=== PATIENT | female | born 2000 | race Caucasian/White ===

== ENCOUNTER 2022-01-03 23:09 | Emergency (ER) | payer OTHER, SELFPAY ==
[2022-01-03 23:15] VITALS: BP 135/70; PULSE 78; RESP 16; TEMP 36.4; O2SAT 99; BMI 21.5
--- NOTE | 2022-01-03 23:29 | CRLHL7_ITS ---
For Patients: As a result of the Cures Act, medical imaging exams and procedure reports are released immediately into your electronic medical record. You may view this report before your referring provider. If you have questions, please contact your health care provider. Indication: Pain. Technique: Left knee 3 views. Comparison: None. Findings: Suboptimal positioning on lateral view. No acute fracture or dislocation. Mild lateral tilt of the patella. Joint spaces are preserved. No knee joint effusion. Soft tissues are unremarkable. Impression: 1. No acute findings. 2. Mild lateral tilt of the patella. Dictated by Ya Mahmood MD @ 01/04/2022 12:06:17 AM (Electronically Signed)
--- NOTE | 2022-01-03 23:52 | ED_ITS ---
HPI - Extremity Injury (Lower) General Date Seen: 01/03/22 Chief Complaint: Extremity Pain/Injury, Lower Stated Complaint: left knee pain Time Seen by Provider: 01/03/22 23:10 Source: patient Mode of arrival: ambulatory Limitations: no limitations History of Present Illness HPI Narrative: Patient is a 21-year-old female who presents here with a month history of left knee pain. Describes the pain worse when she is up moving around but there is always some chronic nature to the pain. When she walks she describes her pain as 8 or 9/10, when she is sitting shots approximately a 2 or 3. She has noted no swelling or effusion associated with this, there is no redness, she can not remember specific episode where she injured her knee. Seemingly the pain is worse when she goes up and down stairs. She tried ibuprofen and Tylenol for this but did not really get any response at all and quit taking this. He has not seen her primary care physician, not seen any specialty for this. No p revious history of any surgeries or previous knee issues. Onset (ago): month(s) Injury: Left: knee Related Data Home Medications Medication Instructions Recorded Confirmed No Known Home Medications 01/03/22 01/03/22 Allergies Allergy/AdvReac Type Severity Reaction Status Date / Time No Known Drug Allergies Allergy Verified 01/03/22 23:19 Review of Systems Status of ROS: Reports: 6 or more systems reviewed and unremarkable except as noted in History and below [facility] Medical History Anemia, iron deficiency Dermatitis, atopic Micrognathia Psoriasis Scoliosis Surgical History No significant past surgical history Social History Smoking Status: Never smoker Do you use any of these nicotine containing products: None How often do you have a drink containing alcohol: never How often do you have six or more drinks on one occasion: Never AUDIT-C Alcohol total score: 0 Non-prescribed substance use: denies use Exam Narrative: Exam Narrative: Patient is seen and assessed her knees are symmetrical bilaterally, with no evidence of a fusion, she is able to walk with me normal in the room, with a non antalgic gait pattern. Left knee shows no effusion and she has normal flexion to 120, normal extension to 0, she has strong ACL PCL LCL and MCL, Malena's test is negative, popliteal fossa is normal, she is mildly tender on distal under side of her patella, normal quads bilaterally, no evidence of any muscle atrophy, normal pulses in her lower extremities bilaterally, Const: Vital Signs, click to edit/add: Vital Signs - 24 hr 01/03/22 23:15 Temperature 97.6 F Pulse Rate [Right Pulse Oximeter] 78 Respiratory Rate 16 Blood Pressure [Ri ght Upper Arm] 135/70 Pulse Oximetry 99 Oxygen Delivery Me thod Room Air Documenting provider has reviewed patient's vital signs: yes Course Vital Signs Vital signs: Initial Vital Signs Temperature 97.6 F 01/03/22 23:15 Temperature Source Temporal Artery Scan 01/03/22 23:15 Pulse Rate 78 01/03/22 23:15 Respiratory Rate 16 01/03/22 23:15 Blood Pressure 135/70 01/03/22 23:15 Blood Pressure Mean 91 01/03/22 23:15 Blood Pressure Position Sitting 01/03/22 23:15 Pulse Oximetry 99 01/03/22 23:15 Oxygen Delivery Method 01/03/22 23:15 Vital Signs Temperature 97.6 F 01/03/22 23:15 Pulse Rate 78 01/03/22 23:15 Respiratory Rate 16 01/03/22 23:15 Blood Pressure 135/70 01/03/22 23:15 Pulse Oximetry 99 01/03/22 23:15 Oxygen Delivery Method 01/03/22 23:15 Temperature 97.6 F 01/03/22 23:15 Pulse Rate 78 01/03/22 23:15 Respiratory Rate 16 01/03/22 23:15 Blood Pressure 135/70 01/03/22 23:15 Pulse Oximetry 99 01/03/22 23:15 Oxygen Delivery Method 01/03/22 23:15 MDM - Extremity Injury (Lower) MDM Narrative Medical decision making narrative: Patient is seen and assessed, consideration for fracture, sprain, contusion, cartilage derangement, Blank cyst, infection, patellofemoral syndrome, or other possibilities. We will do an x-ray, I suspect that this is patellofemoral syndrome and she will need to see primary care and consideration of physical therapy. She tells me she did wear knee brace, this is usually not helpful for this. Imaging Data Knee x-ray: Attestation: I have reviewed the pertinent imaging results. My impression: Knee x-ray negative fracture dislocation Radiologist's impression: Patient: DIAN LEONG Facility:?[facility] Patient ID:?[id number] Site Patient ID:?[id number]. Site :?[id number] Study:?XRay Knee Left 3V-01/03/2022 11:55:30 PM Ordering Physician:Krista Kamara Final Report: Indication: Pain. Technique: Left knee 3 views. Comparison: None. Findings: Suboptimal positioning on lateral view. No acute fracture or dislocation. Mild lateral tilt of the patella. Joint spaces are preserved. No knee joint effusion. Soft tissues are unremarkable. Impression: 1. No acute findings. 2. Mild lateral tilt of the patella. Dictated by Ya Mahmood MD @ 01/04/2022 12:06:17 AM (Electronic Signature) Discharge Plan Discharge Clinical Impression: Acute knee pain Patient Disposition: Home, Self-Care Condition: Stable Instructions: Heat Pack Application (ED), Patellofemoral Pain Syndrome Exercises (ED) Additional Instructions: I suspect this is patellofemoral syndrome, please read the handout that we gave you, you can use some Tylenol 1 g p.o. t.i.d. or ibuprofen 600 mg p.o. t.i.d. ice is helpful, follow-up with primary care for physical therapy referral. X- rays were negative. Prescriptions: No Action No Known Home Medications Follow Up/Referrals: Keith Hein MD [Staff Physician] - Provider,Not a Local [Primary Care Provider] - Stand Alone Forms: [employer] Info Instructions
[2022-01-04 00:48] VITALS: BP 125/68; PULSE 74; RESP 16; TEMP 36.4; O2SAT 99
== END 2022-01-04 00:49 | disposition home or self-care (01) ==
PROVIDERS: Emergency Provider Family Medicine
DX: M25.562 Pain in left knee (principal)
CPT/HCPCS: 73562; 99283

== ENCOUNTER 2022-02-06 09:19 | Outpatient (CLI) | payer OTHER, SELFPAY ==
--- NOTE | 2022-02-06 09:15 | CRLHL7_ITS ---
For Patients: As a result of the Century Cures Act, medical imaging exams and procedure reports are released immediately into your electronic medical record. You may view this report before your referring provider. If you have questions, please contact your health care provider. Indication: Follow up left axillary lymphadenopathy. Technique: Left axillary ultrasound Comparison: Ultrasound 09/13/2021 PET-CT 09/14/2021 Findings: Static images demonstrate multiple enlarged lymph nodes. Larger lymph nodes measure 2.7 by 1.2 centimeter short axis. There is presence of a fatty hilum. Cortex appears slightly thickened. Dictated by Yoselin Lo MD @ 02/06/2022 10:56:52 AM (Electronically Signed)
== END 2022-02-06 09:20 | disposition home or self-care (01) ==
PROVIDERS: Visit Provider Surgery
DX: R59.1 Generalized enlarged lymph nodes (principal)
CPT/HCPCS: 76882

== ENCOUNTER 2022-03-01 07:38 | Day surgery (SDC) | payer OTHER, SELFPAY ==
[2022-03-01] MEDS: LACTATED RINGERS 1000 ML 1,000 ML 100 ML IV (08:00)
[2022-03-01 08:08] VITALS: BP 132/87; PULSE 74; RESP 16; TEMP 37.1; O2SAT 99; BMI 24.5
[2022-03-01] MEDS: ETHYL CHLORIDE 1 APPLICATION 1 APPLIC TOPICAL (08:22)
[2022-03-01] MEDS: SODIUM CHLORIDE 0.9 % (FLUSH) 10 ML SYRINGE IVF (08:22)
--- NOTE | 2022-03-01 08:57 | SUR.PREOP ---
PT PROVIDED HOME ANTEGEN COVID NEGATIVE
--- NOTE | 2022-03-01 09:15 | CRLHL7_ITS ---
For Patients: As a result of the Cures Act, medical imaging exams and procedure reports are released immediately into your electronic medical record. You may view this report before your referring provider. If you have questions, please contact your health care provider. LEFT AXILLARY LYMPH NODE LOCALIZATION USING ULTRASOUND GUIDANCE CLINICAL HISTORY: Left axillary adenopathy with associated increased metabolic uptake on CT-PET imaging. LATERALITY: Left axilla LESION: Enlarged hypoechoic left axillary lymph node measuring 2.9 x 1.2 x 2.2 cm. LOCALIZATION WIRE: [place] hookwire. TECHNIQUE: The localization wire was placed using real-time ultrasound guidance with image documentation. CONSENT and TIME OUT: The procedure, risks, and alternatives were explained to the patient and a consent was signed. [place] Protocol was followed including pre-procedure verification that relevant information/documentation was available, reviewed and properly matched to the patient; consent accurate and complete; and equipment and supplies available. Time Out was conducted just prior to starting procedure to verify the four required elements: patient identity, correct side/site marked (if applicable), procedure, relevant images/results properly labeled and displayed (if applicable). PROCEDURE: The skin was prepped with Betadine and 3 cc of 1% lidocaine was injected for local anesthesia. The localization wire was placed within the enlarged left axillary lymph node using ultrasound guidance. The patient tolerated the procedure well. PROXIMITY OF WIRE TO LESION: The wire is located within the lesion. IMPRESSION: Successful left axillary lymph node wire localization. ACR not applicable Dictated by Keith Cabello MD @ 03/01/2022 10:17:53 AM (Electronically Signed)
[2022-03-01] MEDS: lidocaine HCL 2 % MULTIDOSE 20 ML VIAL INJECTION (10:26)
[2022-03-01] MEDS: BUPIVACAINE 0.5 % 10 ML VIAL INJECTION (10:26)
--- NOTE | 2022-03-01 10:38 | W.ANESCHARGE ---
Anesthesia Charges Start Date/Time Anesthesia Start Date: 03/01/22 Anesthesia Start Time: 10:06 Stop Date/Time Anesthesia Stop Date: 03/01/22 Anesthesia Stop Time: 11:30 Summary Emergency: No
--- NOTE | 2022-03-01 11:28 | PM.GSPRC ---
Operative Note Date of procedure: 03/01/22 Type of Procedure: Excision of left axillary lymph node Procedure Description: After discussing the risks and benefits of the procedure, the patient signed informed consent.? The operative site was marked and the patient was brought to the operating room and placed on the operating table in supine position.? Care was taken to pad the patient's pressure points.?? The patient was then given sedation by anesthesia.?? The operative site was then prepped and draped in the usual sterile fashion.? A time-out was then performed. Local anesthetic was infiltrated into the skin and an incision made over the wire. This was carried down to the subcutaneous tissue using electrocautery. Usually a combination of blunt dissection and electrocautery the wire was followed to a large, abnormal node. This was circumferentially dissected out. The pedicle was identified and ligated with a 3-0 Vicryl tie. The lymph node was then passed off with the wire on the back table to be sent to pathology. Hemostasis was assured with electrocautery. The incision was closed in layers with deeper interrupted 3 0 Vicryl and running 4-0 subcuticular stitch. ? Sterile dressings were then applied. ? The patient was then woken and transported to the recovery area in stable condition. ? The patient tolerated the procedure well. Findings: Large left axillary lymph node, wire localized Anesthesia: MAC Surgeon: Josie Farrell MD Estimated blood loss (mL): 5 Condition: stable Disposition: same day
[2022-03-01 11:30] VITALS: BP 88/44; PULSE 60; RESP 16; TEMP 36.5; O2SAT 96
[2022-03-01 11:45] VITALS: BP 90/54; PULSE 66; RESP 16; O2SAT 97
--- NOTE | 2022-03-01 11:56 | W.ANESCHARGE ---
Anesthesia Charges Start Date/Time Anesthesia Start Date: 03/01/22 Anesthesia Start Time: 10:06 Stop Date/Time Anesthesia Stop Date: 03/01/22 Anesthesia Stop Time: 11:30 Summary Emergency: No
[2022-03-01 12:00] VITALS: BP 101/66; PULSE 67; RESP 16; O2SAT 97
== END 2022-03-01 13:00 | disposition home or self-care (01) ==
PROVIDERS: PCP Physician Assistant Medical; Visit Provider Surgery
PROC: (CPT 38500; principal; 2022-03-01 10:05)
DX: R59.0 Localized enlarged lymph nodes (principal)
CPT/HCPCS: 38500; 00400; 10035; 88184; 88185; 88305; 88307; 88341; 88342; C1769; J2250; J2704; J3010; J7120; S0020

== ENCOUNTER 2022-03-30 23:05 | Emergency (ER) | payer OTHER, SELFPAY ==
[2022-03-30 23:11] VITALS: BP 120/79; PULSE 86; RESP 18; TEMP 37.4; O2SAT 100; BMI 37.6
--- NOTE | 2022-03-30 23:32 | CRLHL7_ITS ---
For Patients: As a result of the Century Cures Act, medical imaging exams and procedure reports are released immediately into your electronic medical record. You may view this report before your referring provider. If you have questions, please contact your health care provider. HISTORY: Cough for 1 week. COMPARISON: 07/28/2021 FINDINGS: A portable erect AP view of the chest was obtained at 23 40 hours. The lungs remain clear. No focal or diffuse infiltrates are present. The heart remains normal in size. The mediastinum is normal in appearance. The osseous structures are normal in appearance for the patient`s age. IMPRESSION: Normal portable chest single view. Dictated by Rusty Zurita MD @ 03/30/2022 11:54:00 PM (Electronically Signed)
[2022-03-30] MEDS: ONDANSETRON ODT 4 MG TAB PO (23:38)
[2022-03-31 00:08] LABS: PCR FLU A Negative PCR FLU A (Negative); PCR FLU B Negative PCR FLU B (Negative); PCR RSV Negative PCR RSV (Negative)
[2022-03-31 00:09] LABS: SARS PCR* Negative SARS-CoV-2 (Negative)
--- NOTE | 2022-03-31 00:12 | ED.GENADULT ---
HPI - General Adult General Chief complaint: Cough Stated complaint: difficulty breathing/fever/cough Time Seen by Provider: 03/30/22 23:24 History of Present Illness HPI narrative: 22-year-old young woman presenting to the emergency department with concern of cough and fever. Unspecified elevation of temperature. All this has been going on for about a week. She has had intermittent pain in her right mid chest as well with inspiration but more across the low chest indicating her anterior rib margin. Has been nauseated. Has had vomiting which sounds possibly cough related. Home tests negative for COVID. Negative testing as well. History of irregular menses. History of eczema and for a flare once did receive prednisone-does not tolerate well. Is indeed a little nauseated now. No history of pulmonary emboli or DVT. No unusual swelling of her legs. No prolonged immobility. Worried about RSV as there has been exposure. Work asked her to come in and get checked out. Related Data Home Medications Medication Instructions Recorded Confirmed fexofenadine 180 mg tablet 180 mg PO Q24H 01/31/22 03/30/22 ([facility]) ibuprofen 200 mg tablet 200 mg PO Q6H PRN 01/31/22 03/30/22 clobetasol 0.05 % topical ointment 1 applic topical BID PRN 02/26/22 03/30/22 ergocalciferol (vitamin D2) 10 mcg 400 unit PO DAILY 02/26/22 03/30/22 (400 unit) tablet mometasone 0.1 % topical ointment 0.1 topical .Daily as needed PRN 02/26/22 02/26/22 mupirocin calcium 2 % topical cream 1 applic topical TID 02/26/22 03/30/22 Previous Rx's Medication Instructions Recorded albuterol sulfate 90 mcg/actuation 2 puff inhalation Q6H PRN 02/26/22 aerosol inhaler shortness of breath or wheezing #8.5 grams oxycodone 5 mg tablet 5 mg PO Q6H PRN pain #7 tabs 03/01/22 gabapentin 100 mg capsule 100 mg PO TID #30 caps 03/14/22 Allergies Allergy/AdvReac Type Severity Reaction Status Date / Time potato Allergy Mild Rash Verified 03/30/22 23:17 adhesive Allergy Unknown Rash Verified 03/30/22 23:17 cyclobenzaprine Allergy Unknown stomach Verified 03/30/22 23:17 pain Review of Systems Status of ROS: Reports: 10 or more systems reviewed and unremarkable except as noted in History and below [facility] Medical History Anemia, iron deficiency Dermatitis, atopic Micrognathia Psoriasis Scoliosis Surgical History H/O lymph node biopsy History of oral surgery No significant past surgical history Social History Smoking Status: Former smoker What tobacco products do you use: cigarettes Smoking quit date/years: <= 15 years ago Do you use any of these nicotine containing products: Vaping Products Second hand tobacco smoke exposure: No How often do you have a drink containing alcohol: 2-4 times a month How often do you have six or more drinks on one occasion: Never AUDIT-C Alcohol total score: 2 Non-prescribed substance use: denies use Caffeine: Yes (DAILY) Are you using contraception or practicing any form of control: No Exam Narrative: Exam Narrative: Pleasant. Easily conversant. Breathing easily. Mild nasopharyngeal congestion. Oropharynx is moist and not particularly erythematous. Neck is supple without lymphadenopathy. Lungs are clear. No facial swelling erythema. Little sore to palpation along anterior rib margin. No abdominal tenderness otherwise. Cardiovascular with regular rate and rhythm. Skin is warm and dry with eczematous and psoriatic scarring over the proximal forearm/distal upper arms. No cellulitic change parent. Const: Vital Signs, click to edit/add: Vital Signs - 24 hr 03/30/22 23:11 Temperature 99.3 F Pulse Rate [Left P ulse Oximeter] 86 Respiratory Rate 18 Blood Pressure [Ri ght Upper Arm] 120/79 Pulse Oximetry 100 Oxygen Delivery Me thod Room Air Documenting provider has reviewed patient's vital signs: yes Course Vital Signs Vital signs: Initial Vital Signs Temperature 99.3 F 03/30/22 23:11 Temperature Source Temporal Artery Scan 03/30/22 23:11 Pulse Rate 86 03/30/22 23:11 Pulse Rhythm 03/30/22 23:11 Respiratory Rate 18 03/30/22 23:11 Blood Pressure 120/79 03/30/22 23:11 Blood Pressure Mean 92 03/30/22 23:11 Blood Pressure Position Supine 11/25/22 23:11 Pulse Oximetry 100 03/30/22 23:11 Oxygen Delivery Method 03/30/22 23:11 Vital Signs Temperature 99.3 F 03/30/22 23:11 Pulse Rate 86 03/30/22 23:11 Respiratory Rate 18 03/30/22 23:11 Blood Pressure 120/79 03/30/22 23:11 Pulse Oximetry 100 03/30/22 23:11 Oxygen Delivery Method 03/30/22 23:11 Temperature 99.3 F 03/30/22 23:11 Pulse Rate 86 03/30/22 23:11 Respiratory Rate 18 03/30/22 23:11 Blood Pressure 120/79 03/30/22 23:11 Pulse Oximetry 100 03/30/22 23:11 Oxygen Delivery Method 03/30/22 23:11 Medical Decision Making MDM Narrative Medical decision making narrative: Considering duration of illness I do not think it is unreasonable to do chest x-ray. Triple screened as well. This was negative. Review chest x-ray by me did not reveal any infiltrative process. Was also given Zofran. Overall seemed better in the emergency department. Oximetry maintained. Somewhat of a bronchitis picture with pleuritic component. Might benefit from prednisone but would not tolerate apparently. Recommendations then for NSAIDs. Medical Records Medical records reviewed: Yes I reviewed the patient's medical records Lab Data Lab results reviewed: Yes I reviewed the patient's lab results Labs: Lab Results 03/30/22 Range/Units 23:23 SARS-CoV-2 (PCR) Negative SARS-CoV-2 (Negative) Influenza Type A (PCR) Negative PCR FLU A (Negative) Influenza Type B (PCR) Negative PCR FLU B (Negative) RSV (PCR) Negative PCR RSV (Negative) Discharge Plan Discharge Clinical Impression: Chest pain, pleuritic, URI (upper respiratory infection) Patient Disposition: Home, Self-Care Condition: Stable Instructions: Upper Respiratory Infection (DC) Additional Instructions: I would focus on hydration. Maybe sleep due the mist of a cool mist humidifier. Menthol vapors. Consider taking, with a little food, ibuprofen 400-600 mg 3 times daily over the next 4-5 days or alternatively 250-500 mg of naproxen 2 times daily over the same time period. Zofran from [facility] Prescriptions: No Action ergocalciferol (vitamin D2) 10 mcg (400 unit) tablet 400 unit PO DAILY clobetasol 0.05 % ointment 1 applic topical BID PRN Rx Instructions: APPLY SPARINGLY TO AFFECTED AREA mupirocin calcium 2 % cream 1 applic topical TID mometasone 0.1 % ointment 0.1 topical .Daily as needed PRN albuterol sulfate 90 mcg/actuation HFA aerosol inhaler 2 puff inhalation Q6H PRN (Reason: shortness of breath or wheezing) Qty: 8.5 3RF gabapentin 100 mg capsule 100 mg PO TID Qty: 30 0RF Hold Instructions: Order Change fexofenadine [[facility]ine Allergy] 180 mg tablet 180 mg PO Q24H ibuprofen 200 mg tablet 200 mg PO Q6H PRN oxycodone 5 mg tablet 5 mg PO Q6H PRN (Reason: pain) Qty: 7 0RF Hold Instructions: Order Change Follow Up/Referrals: Remedios Gustafson PA-C [Primary Care Provider] - Stand Alone Forms: [employer] Info Instructions
== END 2022-03-31 00:44 | disposition home or self-care (01) ==
PROVIDERS: Emergency Provider Family Medicine; PCP Physician Assistant Medical
DX: J06.9 Acute upper respiratory infection, unspecified (principal); R09.1 Pleurisy
CPT/HCPCS: 71045; 87502; 87634; 87635; 99284; A9270

== ENCOUNTER 2022-05-06 18:55 | Emergency (ER) | payer OTHER, SELFPAY ==
[2022-05-06 19:04] VITALS: BP 136/89; PULSE 108; RESP 16; TEMP 36.8; O2SAT 100
--- NOTE | 2022-05-06 19:10 | ED.GENADULT ---
HPI - General Adult General Time Seen by Provider: 19:10 Date Seen: 05/06/22 Stated complaint: eye issue, congestion Time Seen by Provider: 05/06/22 18:56 Source: patient and RN notes reviewed Mode of arrival: ambulatory Limitations: no limitations History of Present Illness HPI narrative: Patient is a 22-year-old female coming in with concern of a sinus infection. Her tear duct is actually been draining some mucousy matter. Her eyes not mattering shot. She is blowing thick discolored nasal secretions out. She has developed fevers the last couple days, they have been up to 101. She had a cold about a month ago. She has just had ongoing nasal congestion that is worsening. She has facial pain. She is not coughing. She does have severe eczema, no new rash. No visual changes. She has had ear congestion, the left ear is hurting the most currently. She is getting postnasal drainage, significant congestion. Related Data Home Medications Medication Instructions Recorded Confirmed fexofenadine 180 mg tablet 180 mg PO Q24H 01/31/22 04/11/22 ([facility]) ibuprofen 200 mg tablet 200 mg PO Q6H PRN 01/31/22 04/11/22 clobetasol 0.05 % topical ointment 1 applic topical BID PRN 02/26/22 04/11/22 ergocalciferol (vitamin D2) 10 mcg 400 unit PO DAILY 02/26/22 04/11/22 (400 unit) tablet mometasone 0.1 % topical ointment 0.1 topical .Daily as needed PRN 02/26/22 04/11/22 mupirocin calcium 2 % topical cream 1 applic topical TID 02/26/22 04/11/22 Previous Rx's Medication Instructions Recorded albuterol sulfate 90 mcg/actuation 2 puff inhalation Q6H PRN 02/26/22 aerosol inhaler shortness of breath or wheezing #8.5 grams Allergies Allergy/AdvReac Type Severity Reaction Status Date / Time potato Allergy Mild Rash Verified 04/11/22 11:30 adhesive Allergy Unknown Rash Verified 04/11/22 11:30 cyclobenzaprine Allergy Unknown stomach Verified 04/11/22 11:30 pain Review of Systems Status of ROS: Reports: 6 or more systems reviewed and unremarkable except as noted in History and below [facility] Medical History Anemia, iron deficiency Dermatitis, atopic Micrognathia Psoriasis Scoliosis Surgical History H/O lymph node biopsy History of oral surgery No significant past surgical history Social History (Updated 03/31/22 @ 17:23 by Keith Caicedo MD) Smoking Status: Former smoker What tobacco products do you use: cigarettes Smoking quit date/years: <= 15 years ago Do you use any of these nicotine containing products: Vaping Products Second hand tobacco smoke exposure: No How often do you have a drink containing alcohol: 2-4 times a month How often do you have six or more drinks on one occasion: Never AUDIT-C Alcohol total score: 2 Non-prescribed substance use: denies use Caffeine: Yes (DAILY) Are you using contraception or practicing any form of control: No Exam Const: Vital Signs, click to edit/add: Vital Signs - 24 hr 05/06/22 19:04 Temperature 98.2 F Pulse Rate [Right Pulse Oximeter] 108 H Respiratory Rate 16 Blood Pressure [Le ft Upper Arm] 136/89 Pulse Oximetry 100 Oxygen Delivery Me thod Room Air Documenting provider has reviewed patient's vital signs: yes Common normals: no apparent distress, average body habitus, oriented x3, no limitations, healthy appearing, alert and well nourished General appearance: cooperative, comfortable, well kempt and well developed Other: Has some erythematous eczematous change of her skin. No concern for any skin infection that I can see on visualized skin. Pupils are equal round reactive to light extraocular muscles intact, no periorbital swelling or erythema. Conjunctivae are currently clear. No exudates noted at this time. She has significant audible nasal congestion, anterior nares with some mucus, pale membranes overall, not erythematous. Left tympanic membrane has some increased vascularity, blurring of the light reflects, no confluency erythema, no drainage in canal. Right TM and canal are completely normal, normal translucency, normal light reflex. Oropharynx stomach us neg states erythema, speech is normal. No cervical adenopathy. Lungs are clear good air entry no wheezing crackles. CV regular rate and rhythm no murmur. Neuro: Common normals: oriented x3 Sensorium/orientation: alert Psych: Appearance: well kempt Course Course Hospital Course: Discussed with patient that I feel she actually likely has a true acute sinusitis. She states her mom was wondering at as well. Do not feel that we need to do further testing at this time. She would like her antibiotics from [facility]. Vital Signs Vital signs: Initial Vital Signs Temperature 98.2 F 05/06/22 19:04 Temperature Source Temporal Artery Scan 05/06/22 19:04 Pulse Rate 108 H 05/06/22 19:04 Pulse Rhythm 05/06/22 19:04 Respiratory Rate 16 05/06/22 19:04 Blood Pressure 136/89 05/06/22 19:04 Blood Pressure Mean 104 05/06/22 19:04 Blood Pressure Position Sitting 05/06/22 19:04 Pulse Oximetry 100 05/06/22 19:04 Oxygen Delivery Method 05/06/22 19:04 Vital Signs Temperature 98.2 F 05/06/22 19:04 Pulse Rate 108 H 05/06/22 19:04 Respiratory Rate 16 05/06/22 19:04 Blood Pressure 136/89 05/06/22 19:04 Pulse Oximetry 100 05/06/22 19:04 Oxygen Delivery Method 05/06/22 19:04 Temperature 98.2 F 05/06/22 19:04 Pulse Rate 108 H 05/06/22 19:04 Respiratory Rate 16 05/06/22 19:04 Blood Pressure 136/89 05/06/22 19:04 Pulse Oximetry 100 05/06/22 19:04 Oxygen Delivery Method 05/06/22 19:04 Critical Care Time Critical Care Time Critical Care Time: No Discharge Plan Discharge Clinical Impression: Sinusitis Patient Disposition: Home, Self-Care Condition: Stable Instructions: Sinusitis (ED) Additional Instructions: Start oral antibiotic Augmentin and take as prescribed. Do recommend getting Flonase which is [id number], 2 sprays each nostril daily for the next 1-2 weeks. Make sure you are spring this out towards the sinuses and not center at the septum. Tylenol and ibuprofen as needed for any discomfort, follow bottle directions for dosing. If you are not improving over the next 1-2 weeks, feel you are worsening at any point, please seek re-evaluation. Activity Level: Activity as Tolerated Prescriptions: No Action ergocalciferol (vitamin D2) 10 mcg (400 unit) tablet 400 unit PO DAILY clobetasol 0.05 % ointment 1 applic topical BID PRN Rx Instructions: APPLY SPARINGLY TO AFFECTED AREA mupirocin calcium 2 % cream 1 applic topical TID mometasone 0.1 % ointment 0.1 topical .Daily as needed PRN albuterol sulfate 90 mcg/actuation HFA aerosol inhaler 2 puff inhalation Q6H PRN (Reason: shortness of breath or wheezing) Qty: 8.5 3RF fexofenadine [[facility] Allergy] 180 mg tablet 180 mg PO Q24H ibuprofen 200 mg tablet 200 mg PO Q6H PRN Follow Up/Referrals: Remedios Gustafson PA-C [Primary Care Provider] - Stand Alone Forms: [facility] Info Instructions
[2022-05-06 19:30] VITALS: O2SAT 100
== END 2022-05-06 19:47 | disposition home or self-care (01) ==
LOC: ED 19:28
PROVIDERS: Emergency Provider Family Medicine; PCP Physician Assistant Medical
DX: J32.9 Chronic sinusitis, unspecified (principal)
CPT/HCPCS: 99283; A0998

== ENCOUNTER 2022-05-06 22:14 | Outpatient (CLI) | payer OTHER, SELFPAY | END 2022-05-06 22:15 | disposition home or self-care (01) | LOC: AMB 05-07 13:29 | PROVIDERS: PCP Physician Assistant Medical; Visit Provider Family Medicine | DX: H92.09 Otalgia, unspecified ear (principal); H57.10 Ocular pain, unspecified eye | CPT/HCPCS: A0998 ==

== ENCOUNTER 2022-11-04 21:51 | Emergency (ER) | payer OTHER, SELFPAY ==
[2022-11-04 21:54] VITALS: BP 139/95; PULSE 102; RESP 18; TEMP 36.6; O2SAT 100; BMI 21.9
--- NOTE | 2022-11-04 22:33 | CRLHL7_ITS ---
For Patients: As a result of the Cures Act, medical imaging exams and procedure reports are released immediately into your electronic medical record. You may view this report before your referring provider. If you have questions, please contact your health care provider. INDICATION: Chest pain TECHNIQUE: Chest radiograph 2 views COMPARISON: 03/30/2022, 07/28/2021 FINDINGS: Mediastinum: The mediastinum is normal in appearance. The heart silhouette is normal in size and morphology. Lung: Both lungs are unremarkable in appearance. No sign of pleural effusion seen. No pneumothorax is identified. Bone and Soft tissue: Unremarkable for age. IMPRESSION: 1. No acute cardiopulmonary disease is seen. Dictated by: Jae Mosher MD @ 11/04/2022 23:16:01 (Electronically Signed)
[2022-11-04] MEDS: LORazepam 2 MG/ML inj 0.5 MG IVP (22:50)
[2022-11-04] MEDS: IPRAT-ALBUT 0.5-2.5 MG/3 ML NEB 1 NEB IH (22:50)
[2022-11-04] MEDS: 0.9 % SODIUM CHLORIDE 1000 ml 1,000 ML IV (22:50)
[2022-11-04 23:18] LABS: HCG Qualitative Serum* Negative (Negative)
[2022-11-04 23:33] LABS: D Dimer Quantitative* < 0.27 ug/ml (0.00-0.50)
[2022-11-05 00:15] VITALS: BP 117/78; PULSE 100; RESP 18; O2SAT 100
--- NOTE | 2022-11-05 01:09 | ED_ITS ---
HPI - SOB/Dyspnea General Date Seen: 11/04/22 Chief Complaint: Asthma Stated Complaint: Dif. breathing, heart pain &light headed Time Seen by Provider: 11/04/22 22:02 Source: patient Mode of arrival: ambulatory Limitations: no limitations History of Present Illness HPI Narrative: Patient is a 22-year-old female who presents here with shortness of breath, she has had this now for approximately 6 hours, she says she just felt unwell at home, which brings her in tonight. She also has some left-sided chest discomfort which she describes she has had this for a few weeks. Normally takes Tylenol and ibuprofen at home for this. Or cage in [place] with some Benadryl to help her sleep. She does not endorse any leg swelling, this did not come on suddenly, she says it does feel like her asthma, although worse than it normally does. She has had no runny nose sore throat associated with this she does take albuterol for this at home and took 2 puffs of her inhaler before coming in. She tells me she will not take steroids, she had a very bad reaction to it, and the past She does have a history of eczema is on injectable for this, it has made a huge difference in the last 6 weeks. Pertinent past history: asthma Onset (ago): hour(s) (4) Timing: constant Severity: moderate Exacerbating factors: stress and deep breaths Relieving factors: nothing Known history of: asthma Associated symptoms: chest pain and lightheadedness Treatment prior to arrival: bronchodilator Related Data Home oxygen amount: none Home Medications Medication Instructions Recorded Confirmed fexofenadine 180 mg tablet 180 mg PO Q24H 01/31/22 10/08/22 ([facility]) clobetasol 0.05 % topical ointment 1 applic topical BID PRN 02/26/22 10/08/22 ergocalciferol (vitamin D2) 10 mcg 400 unit PO DAILY 02/26/22 10/08/22 (400 unit) tablet mometasone 0.1 % topical ointment 0.1 topical .Daily as needed PRN 02/26/22 10/08/22 mupirocin calcium 2 % topical cream 1 applic topical TID 02/26/22 10/08/22 dupilumab 300 mg/2 mL subcutaneous mg subcut 10/08/22 10/08/22 pen injector (Dupixent) Previous Rx's Medication Instructions Recorded albuterol sulfate 90 mcg/actuation 2 puff inhalation Q6H PRN 02/26/22 aerosol inhaler shortness of breath or wheezing #8.5 grams Allergies Allergy/AdvReac Type Severity Reaction Status Date / Time potato Allergy Mild Rash Verified 07/06/22 17:09 adhesive Allergy Unknown Rash Verified 07/06/22 17:09 cyclobenzaprine Allergy Unknown stomach Verified 07/06/22 17:09 pain Review of Systems Status of ROS: Reports: 10 or more systems reviewed and unremarkable except as noted in History and below [facility] Medical History Sinusitis ?J32.9 - Chronic sinusitis, unspecified (ICD-10) Psoriasis ?L40.9 - Psoriasis, unspecified (ICD-10) Anemia, iron deficiency ?D50.9 - Iron deficiency anemia, unspecified (ICD-10) Dermatitis, atopic ?L20.9 - Atopic dermatitis, unspecified (ICD-10) Scoliosis ?M41.9 - Scoliosis, unspecified (ICD-10) 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 (ICD-10) Surgical History H/O lymph node biopsy ?Z98.890 - Other specified postprocedural states (ICD-10) History of oral surgery ?Z98.890 - Other specified postprocedural states (ICD-10) No significant past surgical history Social History Smoking Status: Never smoker Do you use any of these nicotine containing products: None Second hand tobacco smoke exposure: No How often do you have a drink containing alcohol: 2-4 times a month How often do you have six or more drinks on one occasion: Never AUDIT-C Alcohol total score: 2 Non-prescribed substance use: denies use Caffeine: Yes (DAILY) Are you using contraception or practicing any form of control: No Exam Narrative: Exam Narrative: On examination room 2 she appears to be no distress she is speaking to me in full sentences says she is short of breath any other respiratory rate is normal. Her peak flows however are decreased averaging 175, not actually sure that her effort was great, but they were low. Pupils are equal round reactive to light there is no scleral icterus redness TMs are normal bilaterally oropharynx is normal, her neck is supple full range of motion her chest shows good air entry bilaterally with absence of wheezing crackles noted, she does not splint, no signs of respiratory distress or heart sounds no clicks murmurs or gallops her abdomen is soft. No tenderness to palpation no organomegaly skin reveals no petechiae, she has a red rash noted pretty well over her whole body but mostly on her cheeks. This is markedly improved according to her. There is no edema negative Homans sign, she moves all extremities independently and well, both proximal distal muscle strength is assessed and normal, she has symmetrical, cranial nerves 3-12 are grossly normal, she is nontoxic. Const: Vital Signs, click to edit/add: Vital Signs - 24 hr 11/04/22 21:54 11/05/22 00:15 Temperature 97.8 F Pulse Rate [Pulse Oximeter] 102 H 100 Respiratory Rate 18 18 Blood Pressure [Le ft Upper Arm] 139/95 H 117/78 Pulse Oximetry 100 100 Oxygen Delivery Me thod Room Air Room Air Documenting provider has reviewed patient's vital signs: yes Course Course Hospital Course: I reviewed with her that her laboratory tests were normal, her D-dimer was normal, chest x-ray was normal, I did review her medications, and monoclonal antibody that she is taking, does not cause coagulopathy associated with pulmonary emboli or DVT. I did talk to her about prednisone, I think she would be most suited to take some prednisone but she would just have no part of this even the inhaled steroids she would decline. I did give her prescription for another inhaler, she wanted a note for work, we gave her that, she promised me she would come back if she felt worse, she left ambulatory from this emergency room walking with no apparent distress. Vital Signs Vital signs: Initial Vital Signs Temperature 97.8 F 11/04/22 21:54 Temperature Source Temporal Artery Scan 11/04/22 21:54 Pulse Rate 102 H 11/04/22 21:54 Respiratory Rate 18 11/04/22 21:54 Blood Pressure 139/95 H 11/04/22 21:54 Blood Pressure Mean 109 H 11/04/22 21:54 Blood Pressure Position Sitting 11/04/22 21:54 Pulse Oximetry 100 11/04/22 21:54 Oxygen Delivery Method Room Air 11/04/22 21:54 Vital Signs Temperature 97.8 F 11/04/22 21:54 Pulse Rate 102 H 11/04/22 21:54 Respiratory Rate 18 11/04/22 21:54 Blood Pressure 139/95 H 11/04/22 21:54 Pulse Oximetry 100 11/04/22 21:54 Oxygen Delivery Method Room Air 11/04/22 21:54 Temperature 97.8 F 11/04/22 21:54 Pulse Rate 100 11/05/22 00:15 Respiratory Rate 18 11/05/22 00:15 Blood Pressure 117/78 11/05/22 00:15 Pulse Oximetry 100 11/05/22 00:15 Oxygen Delivery Method Room Air 11/05/22 00:15 MDM - SOB/Dyspnea MDM Narrative Medical decision making narrative: Life-threatening differential diagnosis includes occluded COPD exacerbation, pulmonary edema, acute coronary syndromes, pulmonary embolism, pneumonia, and pneumothorax. Other differential diagnosis considerations include asthma, bronchitis as well as other etiologies Medical Records Attestation: I reviewed the patient's medical records. Lab Data Attestation: I reviewed the patient's lab results. Labs: Lab Results 11/04/22 Range/Units 22:54 D-Dimer Quant (PE/DVT) < 0.27 (0.00-0.50) ug/ml HCG, Qual Negative (Negative) Imaging Data Chest x-ray: Attestation: I have reviewed the pertinent imaging results. My impression: Negative chest Radiologist's impression: Patient: DIAN LEONG Facility:?[facility] Patient ID:?[id number] Site Patient ID:?[id number]. Site :?[id number] Study:?XRay Chest PA AND LATERAL-11/04/2022 11:09:04 PM Ordering Physician:Krista Kamara Final Report: INDICATION: Chest pain TECHNIQUE: Chest radiograph 2 views COMPARISON: 03/30/2022, 07/28/2021 FINDINGS: Mediastinum: The mediastinum is normal in appearance. The heart silhouette is normal in size and morphology. Lung: Both lungs are unremarkable in appearance. No sign of pleural effusion seen. No pneumothorax is identified. Bone and Soft tissue: Unremarkable for age. IMPRESSION: 1. No acute cardiopulmonary disease is seen. Dictated by: Jae Mosher MD @ 11/04/2022 23:16:01 (Electronic Signature) ECG Data Attestation: I personally reviewed and interpreted this ECG as follows: ECG interpretation date: 11/04/22 Prior ECG tracings: not available for review Interpretation: EKG shows normal sinus rhythm, mild sinus tachycardia 108 otherwise normal. Discharge Plan Discharge Clinical Impression: Asthma, Eczema, Anxiety, Chest pain Patient Disposition: Home, Self-Care Condition: Stable Instructions: Chest Pain (ED), Asthma (ED), How to Use a Metered-Dose Inhaler (DC), Generalized Anxiety Disorder (ED), Anxiety (ED), Chest Wall Pain (ED), Wheezing (ED), How Your Lungs Work (ED) Additional Instructions: Discussed with patient, she will not take prednisone, nor oral or inhaled steroids. I discussed with her that this is largely I think her asthma, but there is also underlying anxiety component. She does already take ibuprofen, and Tylenol for chest pain, and states she will take her medications at home. I think it be reasonable for her to follow up with her primary care physician tomorrow released to call the clinic. If she worsens and becomes more short of breath or other issues then she should come back to the emergency room. Note for work given. Activity Level: Light activity Prescriptions: No Action ergocalciferol (vitamin D2) 10 mcg (400 unit) tablet 400 unit PO DAILY clobetasol 0.05 % ointment 1 applic topical BID PRN Rx Instructions: APPLY SPARINGLY TO AFFECTED AREA mupirocin calcium 2 % cream 1 applic topical TID mometasone 0.1 % ointment 0.1 topical .Daily as needed PRN albuterol sulfate 90 mcg/actuation HFA aerosol inhaler 2 puff inhalation Q6H PRN (Reason: shortness of breath or wheezing) Qty: 8.5 3RF fexofenadine [[facility] Allergy] 180 mg tablet 180 mg PO Q24H Dupixent Pen 300 mg/2 mL pen injector subcut Follow Up/Referrals: Provider,Not a Local [Primary Care Provider] - Stand Alone Forms: [facility] [employer] Info Instructions
== END 2022-11-05 00:17 | disposition home or self-care (01) ==
PROVIDERS: Emergency Provider Family Medicine
DX: J45.909 Unspecified asthma, uncomplicated (principal); F41.9 Anxiety disorder, unspecified; R07.9 Chest pain, unspecified
CPT/HCPCS: 36415; 71046; 84703; 85379; 94640; 96374; 99284; J2060; J7030

== ENCOUNTER 2022-11-30 15:41 | Outpatient (CLI) | payer OTHER, SELFPAY | END 2022-11-30 15:42 | disposition home or self-care (01) | LOC: NFLDUCREF 15:42 | PROVIDERS: Visit Provider Nurse Practitioner Family | DX: L08.9 Local infection of the skin and subcutaneous tissue, unspecified (principal); Z51.89 Encounter for other specified aftercare | CPT/HCPCS: 87070 ==

== ENCOUNTER 2022-12-05 20:55 | Emergency (ER) | payer OTHER, SELFPAY ==
[2022-12-05 21:02] VITALS: BP 116/88; PULSE 120; RESP 18; TEMP 36.8; O2SAT 98; BMI 21.1
--- NOTE | 2022-12-05 21:02 | ED_ITS ---
HPI - Eye Problem General Time Seen by Provider: 21:02 Date Seen: 12/05/22 Chief complaint: Eye Problems Stated complaint: eye discharge Time Seen by Provider: 12/05/22 20:59 Source: patient and RN notes reviewed Mode of arrival: ambulatory Limitations: no limitations History of Present Illness HPI Narrative: Patient is a 22-year-old female coming in with left eye irritation. She has severe eczema and is on Dupixent injections, just received 1. She does get flaring of her rash initially before it settles down. She is noted eye irritation, probably stemming from her sister getting a CT. She has no other living situation. She can go to her boyfriend's maybe tonight. She has been into the ER before with severe eye swelling about a month ago, did get pre dnisone eyedrops. She is using an qzzu-[id number]-gkyuyyv anti allergy drop which seems to help her right eye but does not help her left. Her left feels gritty and itchy and hurd. It is not swollen like prior. She states she has to go to [place] for her insurance to cover, could not see anyone at [facility] no fevers or chills. She already takes 180 mg Christine daily and really has not altered her eye symptoms at all. Denies any trauma. Symptoms literally have been weeks if not maybe over a month for her. The [id number] eyedrop as well as the Christine respond in her right eye but does not seem so in her left. She states she has upcoming allergy testing. Related Data Home Medications Medication Instructions Recorded Confirmed fexofenadine 180 mg tablet 180 mg PO Q24H 01/31/22 11/30/22 (Christine Allergy) clobetasol 0.05 % topical ointment 1 applic topical BID PRN 02/26/22 11/30/22 ergocalciferol (vitamin D2) 10 mcg 400 unit PO DAILY 02/26/22 11/30/22 (400 unit) tablet mometasone 0.1 % topical ointment 0.1 topical .Daily as needed PRN 02/26/22 11/30/22 mupirocin calcium 2 % topical cream 1 applic topical TID 02/26/22 11/30/22 dupilumab 300 mg/2 mL subcutaneous mg subcut 10/08/22 11/30/22 pen injector (DupixSnaptrip) prednisolone acetate 1 % eye drp ophthalmic (eye) DAILY 11/30/22 11/30/22 drops,suspension Previous Rx's Medication Instructions Recorded albuterol sulfate 90 mcg/actuation 2 puff inhalation Q6H PRN 02/26/22 aerosol inhaler shortness of breath or wheezing #8.5 grams sulfamethoxazole 800 1 tab PO BID #14 tabs 11/30/22 mg-trimethoprim 160 mg tablet (Bactrim DS) azelastine 0.05 % eye drops 1 drp ophthalmic (eye) BID #6 mL 12/05/22 Allergies Allergy/AdvReac Type Severity Reaction Status Date / Time potato Allergy Mild Rash Verified 11/30/22 15:08 adhesive Allergy Unknown Rash Verified 11/30/22 15:08 cyclobenzaprine Allergy Unknown stomach Verified 11/30/22 15:08 pain cats AdvReac Uncoded 12/05/22 21:05 Review of Systems Narrative: As per HPI [facility] Medical History Skin infection ?L08.9 - Local infection of the skin and subcutaneous tissue, unspecified (ICD-10) Sinusitis ?J32.9 - Chronic sinusitis, unspecified (ICD-10) Psoriasis ?L40.9 - Psoriasis, unspecified (ICD-10) Anemia, iron deficiency ?D50.9 - Iron deficiency anemia, unspecified (ICD-10) Dermatitis, atopic ?L20.9 - Atopic dermatitis, unspecified (ICD-10) Scoliosis ?M41.9 - Scoliosis, unspecified (ICD-10) 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 (ICD-10) Surgical History H/O lymph node biopsy ?Z98.890 - Other specified postprocedural states (ICD-10) History of oral surgery ?Z98.890 - Other specified postprocedural states (ICD-10) No significant past surgical history Social History Smoking Status: Never smoker Do you use any of these nicotine containing products: None Second hand tobacco smoke exposure: No How often do you have a drink containing alcohol: 2-4 times a month How often do you have six or more drinks on one occasion: Never AUDIT-C Alcohol total score: 2 Non-prescribed substance use: denies use Caffeine: Yes (DAILY) Are you using contraception or practicing any form of control: No Exam Const: Vital Signs, click to edit/add: Vital Signs - 24 hr 12/05/22 21:02 Temperature 98.3 F Pulse Rate [Left P ulse Oximeter] 120 H Respiratory Rate 18 Blood Pressure [Ri ght Upper Arm] 116/88 Pulse Oximetry 98 Oxygen Delivery Me thod Room Air Documenting provider has reviewed patient's vital signs: yes Other: 22-year-old female with erythematous macular papular rash some areas of patches. Around the lower left eye there is more appearance of some scaling consistent with her eczema. She has some mild redness Of the conjunctiva but no ciliary flush on the left side. Right is not as red. There is no periorbital swelling on either side. Extraocular muscles are intact. She was given 2 drops of tetracaine and fluorescein exam was done. I see no evidence of any abrasion. No foreign body noted. She did feel subjectively better from the itching in the gritty feeling with the tetracaine. Course Course Hospital Course: Spent some time discussing with the patient that she really is beyond my clinical Accu min and care in the ER. I will send a prescription in for Pataday or Patanol eyedrops, something along that line to see if she might get better relief. She really needs to see an grounds restoration specialist, either Ophthalmology or Optometry for further evaluation and management. She states she has to go to [place]. I have agreed to provide her a note to be off work for the next 2 days so she can try to facilitate this. I see no evidence of trauma, I do not believe this to be any bacterial conjunctivitis. It is likely that this is an allergic type process for her. Vital Signs Vital signs: Initial Vital Signs Temperature 98.3 F 12/05/22 21:02 Temperature Source Temporal Artery Scan 12/05/22 21:02 Pulse Rate 120 H 12/05/22 21:02 Respiratory Rate 18 12/05/22 21:02 Blood Pressure 116/88 12/05/22 21:02 Blood Pressure Mean 97 12/05/22 21:02 Blood Pressure Position Sitting 12/05/22 21:02 Pulse Oximetry 98 12/05/22 21:02 Oxygen Delivery Method Room Air 12/05/22 21:02 Vital Signs Temperature 98.3 F 12/05/22 21:02 Pulse Rate 120 H 12/05/22 21:02 Respiratory Rate 18 12/05/22 21:02 Blood Pressure 116/88 12/05/22 21:02 Pulse Oximetry 98 12/05/22 21:02 Oxygen Delivery Method Room Air 12/05/22 21:02 Temperature 98.3 F 12/05/22 21:02 Pulse Rate 120 H 12/05/22 21:02 Respiratory Rate 18 12/05/22 21:02 Blood Pressure 116/88 12/05/22 21:02 Pulse Oximetry 98 12/05/22 21:02 Oxygen Delivery Method Room Air 12/05/22 21:02 Discharge Plan Discharge Clinical Impression: Acute allergic conjunctivitis of both eyes Patient Disposition: Home, Self-Care Condition: Stable Instructions: Conjunctivitis (ED) Additional Instructions: Stay on the Christine daily. You need to see an eye doctor, someone in optometry would be fine to start with. See where you can get into within the [place] system where your insurance will cover. Your insurance appears to cover Optivar eyedrops, can use 1 drop both eyes twice a day to help relieve allergic eye symptoms. Activity Level: Activity as Tolerated Prescriptions: New azelastine 0.05 % drops 1 drp ophthalmic (eye) BID Qty: 6 0RF No Action ergocalciferol (vitamin D2) 10 mcg (400 unit) tablet 400 unit PO DAILY clobetasol 0.05 % ointment 1 applic topical BID PRN Rx Instructions: APPLY SPARINGLY TO AFFECTED AREA mupirocin calcium 2 % cream 1 applic topical TID mometasone 0.1 % ointment 0.1 topical .Daily as needed PRN albuterol sulfate 90 mcg/actuation HFA aerosol inhaler 2 puff inhalation Q6H PRN (Reason: shortness of breath or wheezing) Qty: 8.5 3RF fexofenadine [Christine Allergy] 180 mg tablet 180 mg PO Q24H Dupixent Pen 300 mg/2 mL pen injector subcut prednisolone acetate 1 % drops,suspension ophthalmic (eye) DAILY sulfamethoxazole-trimethoprim [Bactrim DS] 800-160 mg tablet 1 tab PO BID Qty: 14 0RF Follow Up/Referrals: Provider,Not a Local [Primary Care Provider] - Stand Alone Forms: [employer] Info Instructions
== END 2022-12-05 21:37 | disposition home or self-care (01) ==
LOC: ED 21:26
PROVIDERS: Emergency Provider Family Medicine
DX: H10.13 Acute atopic conjunctivitis, bilateral (principal)
CPT/HCPCS: 99282; 99283; A9270

== ENCOUNTER 2023-10-03 20:38 | Emergency (ER) | payer OTHER, SELFPAY ==
[2023-10-03 20:45] VITALS: BP 145/84; PULSE 89; RESP 20; TEMP 36.7; O2SAT 99; BMI 22.9
--- OUTSIDE RECORDS SUMMARY | 2023-10-03 21:22 | XMS_ITS | Clinical Summary ---
Author Organization [facility] Address [address] [place] [address] Care Team Providers Care Electronic Design Engineer Name Role Phone Jose Martin Ramirez M.D. Primary Care Provider [phone] Source Comments Patient records contain information from all sites at [facility]. For routine questions regarding patient records, call [phone] during business hours, M-F 8:00 AM - 5:00 PM Central Time. Record requests for emergency care only can be directed to [phone] at any time.[facility] Allergies Active Allergy Reactions Criticality Noted Date Comments Adhesive Rash 04/11/2022 Adhesive Tape-Silicones Rash 07/26/2017 Animal Dander Rash 03/10/2018 Dogs ok cats not Cyclobenzaprine GI intolerance 04/11/2022 Latex Rash 07/26/2017 Potato Itching,Rash Low 07/26/2017 Only Raw Potatoes Medications Medication Sig Dispensed Refills Start Date End Date Status ferrous sulfate 325 mg (65 mg iron) tablet Take 1 tablet by mouth daily. 07/02/2016 Active ibuprofen (for_ADVIL,MOTRIN) 200 mg tablet Take 1 tablet by mouth as needed for pain. 07/30/2016 Active hydrocortisone (for_CORTIZONE) 1 % ointment Apply topically as needed. Active mupirocin (BACTROBAN) 2 % ointment Apply 1 application topically as needed. Active clobetasoL (TEMOVATE) 0.05 % cream Apply 1 application. topically 2 (two) times a day as needed. Apply to skin. Active fexofenadine (JERI) 180 mg tablet 180 mg daily. 01/31/2022 Active fluticasone propionate (FLONASE) 50 mcg/actuation nasal sprayIndications:Rhi nitis Allergic Administer 2 sprays into each nostril daily. 16 g 12 01/24/2023 Active albuterol 90 mcg/actuation inhalerIndications:A sthma Mild Intermittent (HCC) Inhale 2 puffs every 4 (four) hours as needed (for cough, wheeze, chest tightness, shortness of breath). 18 g 2 01/24/2023 Active beclomethasone (QVAR REDIHALER) 40 mcg/actuation inhaler Inhale 1 puff 2 (two) times a day. Rinse mouth with water after use to reduce aftertaste and incidence of candidiasis. Do not swallow. 21.2 g 6 04/01/2023 Active cetirizine (ZyrTEC) 10 mg tablet Take 10 mg by mouth as needed. 07/21/2013 Active levonorgestreL (MIRENA) 21 mcg/24 hours (8 yrs) 52 mg IUD 1 each by intrauterine route continuously. 05/21/2023 Active tacrolimus (PROTOPIC) 0.1 % ointmentIndications: Dermatitis Atopic Apply 1 Application topically 2 (two) times a day. Apply to face and neck. 100 g 3 06/06/2023 Active Additional Information Patient taking differently:1 Application topical2 times daily PRN, Apply to face and neck., Reported on 08/09/2023 triamcinolone (KENALOG) 0.5 % cream Apply topically as needed. 07/08/2023 Active dupilumab (Dupixent Pen) 300 mg/2 mL injectionIndications :Dermatitis Atopic Inject 2 mL (300 mg total) under the skin every 14 (fourteen) days. 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 Surveillance Intrauterine Device (Primary Dx) Discharge Disposition: Home or Self Care 09/13/2023 10:00 AM CDT Virtual Visit Division of Hematology in [place], [place] [address] [place] [phone] Tony Larson M.D. Eosinophilia Secondary (Primary Dx); Lymphadenopathy 08/27/2023 2:29 PM CDT - 08/27/2023 11:59 PM CDT Hospital Encounter Department of Laboratory Medicine and Pathology, [place], [place] [address] [place] [phone] Tony Larson M.D. Eosinophilia Secondary Discharge Disposition: Home or Self Care 08/27/2023 2:29 PM CDT - 08/27/2023 11:59 PM CDT Hospital Encounter Department of Laboratory Medicine and Pathology, [facility] in [place], [place] [address] [place] [phone] Tony Larson M.D. Eosinophilia Secondary Discharge Disposition: Home or Self Care 08/27/2023 1:30 PM CDT Comprehensive Visit Division of Hematology in [place], [place] [address] [place] [phone] Tony Larson M.D. Eosinophilia Secondary (Primary Dx) 08/27/2023 1:00 PM CDT Clinical Support - [facility] Division of Hematology in [place], [place] [address] [place] [phone] Marta Meza M.D. RudCarmelina Lymphadenopathy; Eosinophilia Unspecified 08/12/2023 12:15 PM CDT - 08/12/2023 11:59 PM CDT Hospital Encounter Department of Laboratory Medicine and Pathology, [facility], in [place], [place] [address] [place] [phone] Marta Meza M.D. Dermatitis Atopic; Lymphadenopathy; Eosinophilia Unspecified Discharge Disposition: Home or Self Care 08/12/2023 11:40 AM CDT Office Visit Department of Dermatology in [place], [place] [address] [place] [phone] Marta Meza M.D. Dermatitis Atopic (Primary Dx); Lymphadenopathy; Eosinophilia Unspecified Discharge Disposition: Home or Self Care 08/09/2023 9:15 AM CDT Clinical Communication Virtual Review in [place], [place] [address] [place] [address] 07/05/2023 3:57 PM PLUMBER'S HELPER - 07/05/2023 11:59 PM PLUMBER'S HELPER Hospital Encounter Department of Radiology in [place], [place] [address] [place] [phone] Amy Vernon, NATHALY, C.N.P., M.S.N. Surveillance Intrauterine Device Discharge Disposition: Home or Self Care from Last 3 Months Immunizations Name Administration Dates Next Due 9vHPV 02/20/2021,09/14/2020,07/15/2020 DTaP (Daptacel) 01/19/2004, 1,1999,1999,1999 DTaP (Infanrix, Tripedia) 01/19/2004,,1999,1999,1999 HepB Pediatric/Adolescent 02/14/2000,1999, 1999 HepB, Unspecified 1999 Hib (PRP-OMP) (PedvaxHIB) 1999 Hib (PRP-T) (ACTHIB, HIBERIX) 1999, 999 Hib, Unspecified 02/14/2000,1999, 9 Hib-HepB 02/14/2000,1999 IPV 01/19/2004, 0,1999,1998 Influenza, Injectable, Mdck, Preservative Free, Quadrivalent 01/08/2023,01/26/2018 Influenza, Injectable, Quadrivalent 01/24/2019,1 MCV4 (Menactra)(Discontinued) 07/15/2020 MMR 01/19/2004,02/13/2000 MMRV 01/19/2004,02/14/2000 PCV13 09/19/2000,02/14/2000,1999 PCV7 (discontinued) 09/19/2000,02/13/2000,1999 SARS-COV-2 (COVID-19) - MODERNA(Discontinued) 08/31/2020,08/03/2020 Tdap 12/06/2010 SARAH 12/06/2010,01/19/2004,02/14/2000 influenza vaccine quad (FLUZONE/FLUARIX) (6 months and older)(PF) 01/28/2022,01/13/2021,02/26/2020 Family History Medical History Relation Name Comments Alcohol abuse Father carlitos schultz Psoriasis Father's Brother Hyperlipidemia Maternal Grandfather laurita sarmad Lung cancer Maternal Grandfather laurita sarmad Other cancer Maternal Grandfather laurita sarmad bone Prostate cancer Maternal Grandfather laurita sarmad Skin cancer Maternal Grandfather laurita sarmad Hypertension Maternal Grandmother jumana sarmad Obesity Maternal Grandmother jumana sarmad Anesthesia problems Mother caroline lopez Causes vomiting Psoriasis Mother caroline lopez Sleep apnea Mother caroline lopez Psoriasis Mother's Brother Diabetes Paternal Grandfather adelso schultz Asthma Sister 1 [employer] [place]ims[employer] Psychiatric Sister 1 [employer] Heimsness Rhinitis Sister 1 [employer] Heimsness ADD Sister 2 flora schultz Obesity Sister 2 flora schultz ADD Sister 3 eri heimsness Relation Name Status Comments Father carlitos schultz Father's Brother Maternal Grandfather laurita sarmad Maternal Grandmother jumana sarmad Mother caroline lopez Mother's Brother Paternal Grandfather adelso schultz Sister 1 Marine Aly Sister 2 flora schultz Sister 3 eri ayl Social History Tobacco Use Types Packs/Day Years Used Date Smoking Tobacco: Some Days Cigarettes Passive Smoke Exposure: Past Smokeless Tobacco: Never Tobacco Cessation:Ready to Q uit: Not Asked Comments:Vape Alcohol Use Standard Drinks/Week Comments Not Currently 0 (1 standard drink = 0.6 oz pure alcohol) Have alcohol a couple times a month [facility] Utilities Answer Date Recorded In the past 12 months has [employer], gas, oil, or water [employer] threatened to shut off services in your home? No 09/10/2023 Humiliation, Afraid, Rape, and Kick questionnair e Answer Date Recorded Within the last year, have y ou been afraid of your partner or ex-partner? No 12/19/2022 Within the last year, have y ou been humiliated or emotionally abused in other ways by your partner or ex-partner? No Within the last year, have y ou been kicked, hit, slapped, or otherwise physically hurt by your partner or ex-partner? No 12/19/2022 Within the last year, have y ou been raped or forced to have any kind of sexual activity by your partner or ex-partner? No 12/19/2022 Social Connection and Isolation Panel [NHANES] A nswer Date Recorded In a typical week, how many times do you talk on the phone with family, friends, or neighbors? Three times a week 08/29/2022 How often do you get togethe r with friends or relatives? Once a week 08/29/2022 How often do you attend chur ch or jew services? Never 08/29/2022 Do you belong to any clubs o r organizations such as adventism groups, unions, fraternal or athletic groups, or school groups? No 08/29/2022 How often do you attend meet ings of the clubs or organizations you belong to? Never 08/29/2022 Are you , , di vorced, , never , or living with a partner? Never 08/29/2022 AUDIT-C Answer Date Recorded Q1: How often do you have a drink containing alc ohol? Monthly or less 08/29/2022 Q2: How many drinks containi ng alcohol do you have on a typical day when you are drinking? 3 or 4 08/29/2022 Q3: How often do you have si x or more drinks on one occasion? Less than monthly 08/29/2022 Overall Financial Resource Strain (CARDIA) Answe r Date Recorded How hard is it for you to pa y for the very basics like food, housing, medical care, and heating? Somewhat hard 01/19/2023 PHQ-2 Answer Date Recorded PHQ-2 Score 4 05/16/2023 [facility] - Occupational Stress Questionnaire Answer Date Recorded Do you feel stress - tense, restless, nervous, or anxious, or unable to sleep at night because your mind is troubled all the time - these days? Only a little 08/29/2022 Exercise Vital Sign Answer Date Recorde d On average, how many days pe r week do you engage in moderate to strenuous exercise (like a brisk walk)? 1 day 09/10/2023 On average, how many minutes do you engage in exercise at this level? 20 min 09/10/2023 Hunger Vital Sign Answer Date Recorded Within the past 12 months, y ou worried that your food would run out before you got the money to buy more. Never true 09/10/19 24 Within the past 12 months, t he food you bought just didn't last and you didn't have money to get more. Never true 09/10/2023 PRAPARE - Transportation Answer Date Re corded In the past 12 months, has l ack of transportation kept you from medical appointments or from getting medications? No 11/2023 In the past 12 months, has l ack of transportation kept you from meetings, work, or from getting things needed for daily living? No 09/10/2023 Depression Answer Date Recor ded PHQ-9 Total Score (max 27) 8 05/16 Nutrition Answer Date Recorded On average, how many serving s of fruits and vegetables do you eat per day (serving size is equal to 1 cup or approximately the size of a tennis ball)? 0-2 09/10/2023 Dental Answer Date Recorded Dental: Regular Dentist Yes 04/26/20 23 Employment Answer Date Recorded Employment status Employed and actively working without restrictions 09/10/2023 Housing Stability Answer Date Recorded What is your living situation today? I have a [facility] [place] place to live 09/10/2023 Education Answer Date Recorded What is the highest level of school you have completed or the highest degree you have received? 12th grade 08/29/2022 Sex and Gender Information Value Date Recorded Sex Assigned at Female 07/26/2017 10:00 AM CDT Gender Identity Female 07/26/2017 10:00 AM CDT Sexual Orientation Straight 07/26/2017 10 :00 AM CDT Last Filed Vital Signs Vital Sign Reading Time Taken Comments Blood Pressure 103/66 10/03/2023 1:55 PM CDT Pulse 82 10/03/2023 1:55 PM CDT Temperature 36.6 ??C (97.8 ??F) 08/27/2023 1:21 PM CD T Respiratory Rate 16 11/28/2022 2:37 PM CDT Oxygen Saturation 96% 05/17/2023 1:18 PM PLUMBER'S HELPER Inhaled Oxygen Concentration - - Weight 66.4 kg (146 lb 6.4 oz) 10/03/2023 1:55 P M CDT Height 171.5 cm (5' 7.52) 10/03/2023 1:55 PM CD T Body Mass Index 22.58 10/03/2023 1:55 PM CDT Plan of Treatment Health Maintenance Due Date Last Done Comments HIV Screening 1999 Hepatitis C Screening 1999 Pneumococcal vaccine (0-64 y ears) (1 of 1 - PPSV23 or PCV20) 2005 09/19/2000, 09/19/2000, 02/14/2000, Additional history exists Asthma Action Plan 07/26/2017 DTaP,Tdap,and Td Vaccines (7 - Td or Tdap) 12/06/2020 12/06/2010, 01/19/2004, 01/19/2004, Additional history exists COVID-19 Vaccine ( - 2022-2 4 season) 2023 04/04/2022, 03/21/2021, 08/31/2020, Additional history exists Chlamydia and Gonorrhea Screening 05/21/2024 024 Asthma Control Test Questionnaire 07/01/2024 024 Asthma Management/Exacerbati on Questionnaire (AMQ/AEQ) 07/01/2024 07/01/2023 Tobacco Cessation counseling 10/02/2024 10/03/2023 Cervical Cancer Screening 05/21/2026 05/21/2023 Hepatitis B Vaccines Completed 02/14/2000, 02/14/2000, 1999, Additional history exists HPV Vaccines Completed 02/20/2021, 09/03, 07/15/2020 Influenza Vaccine Completed 01/08/2023, , 01/13/2021, Additional history exists Depression Screening (Annual PHQ-2) Completed 05/17/2023, 05/16/2023 Medical Devices Implanted Type Area Mathematics Instructor Device Identifier Shelf Expiration Date Model / Serial / Lot Mirena- 024 Implanted:Qty : 1 on 05/21/2023 by Amy Vernon, NATHALY, C.N.P., M.S.N. Intrauterine Device Uterus 05/21/2031 / / [id number] Procedures Procedure Name Priority Date/Time Associated Diagnosis Comments CHRONIC EOSINOPHILIA, DIAG FISH Routine 08/27/2023 2:48 PM CDT Eosinophilia Secondary TRYPTASE, S Routine 08/27/2023 2:48 PM CDT Eosinophilia Secondary T-CELL RECEPTOR GENE REARRANGEMENT, PCR Routine 08/27/2023 2:48 PM CDT Eosinophilia Secondary LEUKEMIA/LYMPHOMA PHENOTYPE, B Routine 08/27/2023 2:48 PM CDT Eosinophilia Secondary JAK2 V617F MUTATION DETECTION, B Routine 08/27/2023 2:48 PM CDT Eosinophilia Secondary SPSMA RESULT Routine 08/12/2023 12:39 PM CDT Lymphadenopathy LACTATE DEHYDROGENASE (LD), S Routine 08/12/2023 12:39 PM CDT Lymphadenopathy Eosinophilia Unspecified SEDIMENTATION RATE, B Routine 08/12/2023 12:39 PM CDT Lymphadenopathy Eosinophilia Unspecified C-REACTIVE PROTEIN (CRP), S/P Routine 08/12/2023 12:39 PM CDT Lymphadenopathy CBC WITH DIFFERENTIAL, B Routine 08/12/2023 12:39 PM CDT Dermatitis Atopic Lymphadenopathy US PELVIS TRANSVAGINAL AND TRANSABDOMINAL RAD - Routine (most inpatients and all outpatients) 07/05/2023 4:49 PM PLUMBER'S HELPER Surveillance Intrauterine Device CHLAMYDIA/GONORRHOEA E AMPLIFIED RNA Routine 05/21/2023 4:05 PM PLUMBER'S HELPER Insertion Intrauterine Device Screening For Venereal Disease THINPREP SCREEN HPV REFLEX Routine 05/21/2023 4:05 PM PLUMBER'S HELPER Pap Smear Examination from Last 3 Months or Most Recently Relevant to Health Maintenance Results * Chronic Eosinophilia, Diagnostic FISH (08/27/2023 2:48 PM CDT) Pathologist [facility] [place] Result Summary Normal 08/29/2023 9:52 AM CDT DTL Released By Ale Vaughn, Ph.D. 08/29/2023 9:52 AM CDT DTL Result Table ----- Abnormality Name ? Result ?? Abn% Cutoff% 4q12(CHIC2 deletion) ? Normal ? <7.0 ?? 5q32(PDGFRB sep) ? Normal ? <15.0 ?? 8p11.2(FGFR1 sep) ? Normal ? <10.0 ?? 9p24.1(JAK2 sep) ? Normal ? <10.0 ?? 9q34(ABL1 sep) ? Normal ? <15.0 ?? ----- 08/29/2023 9:52 AM CDT DTL Result Interphase FISH is normal for all loci studied. 08/29/2023 9:52 AM CDT DTL Reason for Referral eosinophilia 08/29/2023 9:52 AM CDT DTL Specimen Blood 08/29/2023 9:52 AM CDT DTL Method Locus and probes ?[Strategy;#Nucle i;Vendor] ----- 4q12(FIP1L1,CHIC2, PDGFRA) ?[BAP;100;AM] 5q32(3'PDGFRB,5'PD GFRB) ? [BAP;100;LDT] 8p11.2(3'FGFR1,5'F GFR1) ? [BAP;100;LDT] 9p24(5'JAK2,3'JAK2 ) ? [BAP;100;LDT] 9q34(5'ABL1,3'ABL1 ) ? [BAP;100;LDT] Probe strategies include: BAP=break-apart probe. Scoring Method: Manual Probe vendors include: LDT = [facility] Developed AM = [employer] ([place], [place]) 08/29/2023 9:52 AM CDT DTL Disclaimer Applicable to Analyte Specific Reagent (ASR) and Laboratory Developed Tests (LDT). This test was developed and its performance characteristics determined by [facility] in a manner consistent with CLIA requirements. It has not been cleared or approved by the U.S. Food and Drug Administration. This FISH test does not rule out other chromosome abnormalities. 08/29/2023 9:52 AM CDT DTL Interpretation The result is within normal limits for the Eosinophilia FISH panel. 08/29/2023 9:52 AM CDT DTL Blood (Blood, Venous) 08/27/2023 2:48 PM CDT 08/27/2023 3:43 PM CDT Tony Larson M.D. LAB GENETIC TESTING [facility] [address] [place] [address], [facility] [address] [facility] [address] [place] [address] * Leukemia/Lymphoma Immunophenotyping by Flow Cytometry, Blood (08/27/2023 2:48 PM CDT) Pathologist [facility] [place] LCMSB Result Performed 08/28/2023 1:40 PM CDT DTL Final Diagnosis: Peripheral blood, flow cytometric immunophenotyping: Normal immunophenotyping results. ??No monotypic B-cell population, phenotypically aberrant T-cell population or increase in blasts identified. Reviewed by: Asha oMran M.D., Ph.D. 08/28/2023 1:40 PM CDT DTL Special Studies: WBC: ??6.2 x 10(9)/L %Lymphs (CBC/automated differential): ??21% #Lymphs (CBC/automated differential): ??1.3 x 10(9)/L Results: Blasts: ??Not increased by CD45/side scatter and CD34. B-cells: ??No monotypic; normal expression pattern of CD19, CD10, surface kappa and lambda. T-cells/NK-cells: ??Normal phenotype by CD2, CD3, CD4, CD45, CD5, CD7, CD8, CD16, TRBC1, and TCR-gamma/delta. Quality Assessment: ??Specimen received within validated guidelines. 08/28/2023 1:40 PM CDT DTL Microscopic Description A Skatwr-Njtjpt-deptmk d slide prepared from the flow cytometry specimen is examined. ??No morphologic features of acute leukemia or lymphoma are identified. 08/28/2023 1:40 PM CDT DTL Comment: ----ADDITIONAL INFORMATION---- This test was developed using an analyte specific reagent. Its performance characteristics were determined by [facility] in a manner consistent with CLIA requirements. This test has not been cleared or approved by the U.S. Food and Drug Administration. Blood (Blood, Venous) 08/27/2023 2:48 PM CDT 08/27/2023 3:32 PM CDT Tony Larson M.D. LAB GENETIC TESTING [facility] [address] [place] [address], [facility] [address] [facility] [address] [place] [address] * JAK2 V617F Mutation Detection, Blood (08/27/2023 2:48 PM CDT) JAK2 Result see interpretation 08/29 12:32 PM CDT DTL Interpretation Peripheral blood, JAK2 V617F mutation analysis: Negative for JAK2 V617F. A negative [id number] test result does not exclude the possibility of a myeloproliferative neoplasm (MPN). If clinical suspicion is high for primary myelofibrosis (PMF) or essential thrombocythemia (ET), consider additional testing for CALR with reflex to MPL (test ID: [id number]). If clinical suspicion is high for polycythemia vera, the test JAK2 Exon 12 and Other Non-V617F Mutational Detection (test ID: JAKXB or JAKXM) could be considered. Clinicopathologic correlation is recommended for a definitive diagnosis. Signing Pathologist: Carolyn Steel M.D. 08/30/2023 12:32 PM CDT DTL Comment: ----ADDITIONAL INFORMATION---- Method summary - JAK2 V617F analysis: ??Quantitative, allele-specific polymerase chain reaction (PCR) assay was performed using extracted genomic DNA to evaluate for the point mutation causing JAK2 V617F. ??The analytic sensitivity of this assay has been determined at 0.06% (see [facility] Interpretive Handbook for method details). This test was developed and its performance characteristics determined by [facility] in a manner consistent with CLIA requirements. This test has not been cleared or approved by the U.S. Food and Drug Administration. Blood (Blood, Venous) 08/27/2023 2:48 PM CDT 08/27/2023 4:02 PM CDT Tony Larson M.D. LAB GENETIC TESTING [facility] [address] [place] [address], [facility] DTL [address] [facility] [address] [place] [address] * T-Cell Receptor Gene Rearrangement, PCR (08/27/2023 2:48 PM CDT) Signing Pathologist Claritza Quevedo M.D. 08/29/2023 1:00 PM CDT DTL Interpretation Peripheral blood, T-cell receptor gene rearrangement analysis: Negative. ??No clonal T-cell receptor gene rearrangement was detected. Absence of a clonal T-cell receptor gene rearrangement does not necessarily exclude the possibility of a T-cell neoplasm and correlation with pathologic, clinical and other supporting (e.g. immunophenotypic) findings is required for final interpretation of these results. Method summary - T-cell receptor gene rearrangement: ??A PCR-based assay was performed on extracted DNA using primers that bind the gamma and beta chain genes. 08/29/2023 1:00 PM CDT DTL Comment: ----ADDITIONAL INFORMATION---- This test was developed using an analyte specific reagent. Its performance characteristics were determined by [facility] in a manner consistent with CLIA requirements. This test has not been cleared or approved by the U.S. Food and Drug Administration. Blood (Blood, Venous) 08/27/2023 2:48 PM CDT 08/27/2023 4:02 PM CDT Tony Larson M.D. LAB BLOOD ADD-ON Performing Organization Address [facility]/ZIP Co de Phone Number [facility] [address] [place] [address], [facility] DTL [address] [facility] [address] [place] [address] * Tryptase (08/27/2023 2:48 PM CDT) Tryptase, S 5.9 <11.5 ng/mL 08/28/2023 3:08 PM CDT [facility] Blood (Blood, Venous) 08/27/2023 2:48 PM CDT 08/27/2023 6:42 PM CDT Tony Larson M.D. LAB BLOOD ADD-ON Performing Organization Address [facility] Co de Phone Number [facility] [address] [place] [address] [facility] [address] [place] [address] * (ABNORMAL) SPSMA Result (08/12/2023 12:39 PM CDT) Neutrophilic Segs and Bands 64 50 - 75 % 08/12/2023 4:03 PM CDT [facility] Lymphocytes 20 18 - 42 % 08/12/2023 4:03 PM CDT [facility] Monocytes 8 2 - 11 % 08/12/2023 4:03 PM CDT [facility] Eosinophils 8(H) 1 - 3 % 08/12/2023 4:03 PM CDT [facility] Manual Absolute Neutrophil Count 5.44 1.56 - 6.45 x10(9)/L 08/12/2023 4:03 PM CDT [facility] Comment: ----ADDITIONAL INFORMATION---- The manual absolute neutrophil count is derived from a manual differential count and therefore is not exactly comparable to the automated absolute neutrophil count. Interpretation See Comment 4:03 PM CDT [place] [facility] Comment:Peripheral blood sme ar reviewed: no diagnostic abnormalities are seen. Reviewed by: Marito 08/12/2023 4:03 PM CDT [facility] Blood (Blood, Venous) 08/12/2023 12:39 PM CDT 08/12/2023 1:05 PM CDT Marta Meza M.D. LAB BLOOD ADD-ON Performing Organization Address City/[facility]/ZIP Co de Phone Number [facility] [address] [place], [place] [id number] [place] [address] [facility] [place] [address] [place] [address] * (ABNORMAL) Sedimentation Rate (08/12/2023 12:39 PM CDT) Sedimentation Rate, B 25(H) 2 - 20 mm/h 08/12/2023 3:01 PM CDT DTL Blood (Blood, Venous) 08/12/2023 12:39 PM CDT 08/12/2023 1:05 PM CDT Marta Meza M.D. LAB BLOOD ADD-ON Performing Organization Address [facility] Co de Phone Number [facility] [address] [place] [address], [facility] [place] [address] [place] [address] * (ABNORMAL) CBC with Differential, Blood (08/12/2023 12:39 PM CDT) Hemoglobin 12.2 11.6 - 15.0 g/dL 08/12/2023 1:31 PM CDT DTL Hematocrit 38.4 35.5 - 44.9 % 08/12/2023 1:31 PM CDT DTL Erythrocytes 4.13 3.92 - 5.13 x10(12)/L 08/12/2023 1:31 PM CDT DTL MCV 93.0 78.2 - 97.9 fL 08/12/2023 1:31 PM CDT DTL RBC Distrib Width 13.8 12.2 - 16.1 % 08/12/2023 1:31 PM CDT DTL Platelet Count 325 157 - 371 x10(9)/L 08/12/2023 1:31 PM CDT DTL Leukocytes 8.5 3.4 - 9.6 x10(9)/L 08/12/2023 1:31 PM CDT DTL Neutrophils 4.91 1.56 - 6.45 x10(9)/L 08/12/2023 1:31 PM CDT DHPM Lymphocytes 1.78 0.95 - 3.07 x10(9)/L 08/12/2023 1:31 PM CDT DTL Monocytes 0.78 0.26 - 0.81 x10(9)/L 08/12/2023 1:31 PM CDT DTL Eosinophils 0.93(H) 0.03 - 0.48 x10(9)/L 08/12/2023 1:31 PM CDT DTL Basophils 0.06 0.01 - 0.08 x10(9)/L 08/12/2023 1:31 PM CDT DTL Blood (Blood, Venous) 08/12/2023 12:39 PM CDT 08/12/2023 1:05 PM CDT Marta Meza M.D. LAB BLOOD ADD-ON [facility] [address] [place] [address], [facility] DTL [facility] [address] [place] [address] [facility] [place] [address] [place] [address] * (ABNORMAL) CRP (C-Reactive Protein) (08/12/2023 12:39 PM CDT) C-Reactive Protein (CRP), S 5.0(H) <5.0 mg/L 08/12/2023 3:01 PM CDT DTL Blood (Blood, Venous) 08/12/2023 12:39 PM CDT 08/12/2023 1:30 PM CDT Marta Meza M.D. LAB BLOOD ADD-ON Performing Organization Address City/[facility]/[place] [address] * LD (Lactate Dehydrogenase) (08/12/2023 12:39 PM CDT) Lactate Dehydrogenase (LD), S 190 122 - 222 U/L 08/12/2023 3:01 PM CDT DTL Blood (Blood, Venous) 08/12/2023 12:39 PM CDT 08/12/2023 1:30 PM CDT Marta Meza M.D. LAB BLOOD NON ADD-O N Performing Organization Address [facility] [place] [place] [address] * US Pelvis Transvaginal and Transabdominal (07/05/2023 4:49 PM PLUMBER'S HELPER) Anatomical Region Laterality Modality Pelvis, Ultrasound RST LOS, Ultrasound ARZ LOS, Ultrasound FLA LOS N/A Ultrasound Impressions 07/05/2023 4:54 PM PLUMBER'S HELPER 1. IUD in satisfactory position in the endometrial cavity. 2. Uterus, endometrium, and ovaries normal. 3. No free fluid in the pelvis. Narrative 07/05/2023 4:54 PM PLUMBER'S HELPER EXAM: US PELVIS TRANSVAGINAL AND TRANSABDOMINAL COMPARISON: CT abdomen pelvis 07/30/2022. TECHNIQUE: Transabdominal and transvaginal. Transvaginal exam performed to better visualize the uterus and/or adnexal regions. 3-D postprocessing imaging on a nonindependent workstation was performed to better assess IUD positioning. FINDINGS: Uterus: 3.1 cm x 3.6 cm x 7.3 cm. Myometrium: Normal. Endometrium: Endometrial stripe measures 4-5 mm in thickness and is normal. The IUD was in normal position within the endometrial cavity. Cervix: Normal Right ovary: Right ovary measures 2.8 x 3.3 x 1.8 cm. Ovarian volume: 9 ml. Right ovary was normal containing tiny and small follicles and having normal blood flow. Left ovary: Left ovary measures 2.8 x 2.6 x 1.6 cm. ??Ovarian volume: 6 ml. Left ovary was normal containing tiny and small follicles and having normal blood flow. Intraperitoneal Fluid: None. Procedure Note Elias Hansen M.D. - 07/05/2023 EXAM: US PELVIS TRANSVAGINAL AND TRANSABDOMINAL COMPARISON: CT abdomen pelvis 07/30/2022. TECHNIQUE: Transabdominal and transvaginal. Transvaginal exam performed tobetter visualize the uterus and/or adnexal regions. 3-D postprocessingimaging on a nonindependent workstation was performed to better assess IUDpositioning. FINDINGS: Uterus: 3.1 cm x 3.6 cm x 7.3 cm. Myometrium: Normal. Endometrium: Endometrial stripe measures 4-5 mm in thickness and isnormal. The IUD was in normal position within the endometrial cavity. Cervix: Normal Right ovary: Right ovary measures 2.8 x 3.3 x 1.8 cm. Ovarian volume: 9ml. Right ovary was normal containing tiny and small follicles and havingnormal blood flow. Left ovary: Left ovary measures 2.8 x 2.6 x 1.6 cm. Ovarian volume: 6 ml.Left ovary was normal containing tiny and small follicles and havingnormal blood flow. Intraperitoneal Fluid: None. IMPRESSION: 1. IUD in satisfactory position in the endometrial cavity. 2. Uterus, endometrium, and ovaries normal. 3. No free fluid in the pelvis. Amy Vernon APRN, C.N.P., M.S.N. IM US PROCEDURES * ThinPrep Screen HPV Reflex (05/21/2023 4:05 PM PLUMBER'S HELPER) 05/23/2023 10:34 AM PLUMBER'S HELPER [facility] Report electronically signed by Jagdeep Garland MD I verify that I have examined all relevant slides/materials for the specimen(s) and rendered or confirmed the diagnosis. 05/23/2023 10:34 AM PLUMBER'S HELPER [facility] Gross Description Received specimen in a ThinPrep vial. 05/23/2023 10:34 AM PLUMBER'S HELPER [facility] Pap Test Source Cervical/Endocervi robles 05/23/2023 10:34 AM PLUMBER'S HELPER [facility] Hormone Therapy/Contracep tives None/Not known 05/23/2023 10:34 AM PLUMBER'S HELPER [facility] Interpretation Cervical/Endocervi robles ??(ThinPrep): Satisfactory for Evaluation Negative for Intraepithelial Lesion or Malignancy 05/23/2023 10:34 AM PLUMBER'S HELPER HKCY Thin Prep Vial (Cervix/Endocerv ix) 05/21/2023 4:05 PM PLUMBER'S HELPER 05/22/2023 7:31 AM PLUMBER'S HELPER Amy Vernon APRN, C.N.P., M.S.N. LAB PAP PATHDX ORDERABLES Performing Organization Address City/[facility] Co de Phone Number [facility] [address] [place] [address], [facility] HKCY [address] [place] [address] * Chlamydia / Gonorrhoeae Amplified RNA (05/21/2023 4:05 PM PLUMBER'S HELPER) Source Thin Prep Vial, Cervix/Endoc ervix 05/22/2023 2:38 PM PLUMBER'S HELPER MKTO Chlamydia trachomatis amplified RNA Negative Negative 05/22/2023 2:38 PM PLUMBER'S HELPER [facility] Source Thin Prep Vial, Cervix/Endoc ervix 05/22/2023 2:38 PM PLUMBER'S HELPER [facility] Neisseria gonorrhoeae amplified RNA Negative Negative 05/22/2023 2:38 PM PLUMBER'S HELPER [facility] Thin Prep Vial (Cervix/Endocerv ix) 05/21/2023 4:05 PM PLUMBER'S HELPER 05/22/2023 10:27 AM PLUMBER'S HELPER Amy Vernon APRN, C.N.P., M.S.N. LAB MICROBIOLOGY - GENERAL ORDERABLES Performing Organization Address City/[facility] Co de Phone Number [facility] [address] [place] [address], [facility] MKTO [address] [address] from Last 3 Months or Most Recently Relevant to Health Maintenance Care Teams Electronic Design Engineer Relationship Specialty Start Date End Date Jose Martin Ramirez M.D. ERIC: [id number] [address] [place] [phone] PCP - General 09/27/23
--- OUTSIDE RECORDS SUMMARY | 2023-10-03 21:22 | XMS_ITS | Clinical Summary ---
Author Organization [facility] Address [address] [place] [address] Care Team Providers Care Rural Route Mail Carrier Name Role Phone No Primary/Referring, Phy Primary Care Provider Unavailable Source Comments You are receiving this document as you are listed as the primary care provider,follow-up provider, or the patient has been referred to you for consultation.This is in compliance with the Medicare and[facility] EHR Incentive Program,which states Providers who transition their patient to another setting of careor provider of care or refers their patient to another provider of care shouldprovide summary care record for each transition of care or referral. [facility] Allergies No known active allergies Medications Medication Sig Dispensed Refills Start Date End Date Status Phenylephrine-Bromphe n-DM (RA COLD & COUGH CHILDRENS OR) Take by mouth. 07/21/2013 Active ALBUterol sulfate HFA 108 (90 BASE) MCG/ACT inhalerIndications:Wh eezing,Acute URI Inhale 2 puffs every 4 hours as needed for Wheezing. 1 Inhaler 07/21/2013 Active cetirizine (AKA ZYRTEC) 10 MG tablet Take 10 mg by mouth daily (every 24 hours). 07/21/2013 Active Active Problems Problem Noted Date Diagnosed Date Wheezing 07/21/2013 Immunizations Name Administration Dates Next Due DTaP 01/19/2004, 1,1999,1999, HepB Ped/Adol (0-18 yrs) 02/14/2000,1999,1 Hib, Unspecified Formulation 02/14/2000,06/21/19 00,1999 IPV (Polio) 01/19/2004,1999,1999 ,1999 MMR 01/19/2004,02/13/2000 Pneumococcal 7, PED 09/19/2000,02/13/2000,1999 TDAP (ADACEL) 12/06/2010 Varicella 12/06/2010,01/19/2004 Social History Tobacco Use Types Packs/Day Years Used Date Smoking Tobacco: Never Assessed Sex and Gender Information Value Date Recorded Sex Assigned at Not on file Gender Identity Not on file Sexual Orientation Not on file Last Filed Vital Signs Vital Sign Reading Time Taken Comments Blood Pressure 116/62 04/23/2023 5:15 AM BIOINFORMATICS SPECIALIST Pulse 101 04/23/2023 5:15 AM BIOINFORMATICS SPECIALIST Temperature 37 ??C (98.6 ??F) 04/23/2023 12:15 AM BIOINFORMATICS SPECIALIST Respiratory Rate 16 04/23/2023 5:15 AM BIOINFORMATICS SPECIALIST Oxygen Saturation 98% 04/23/2023 5:15 AM BIOINFORMATICS SPECIALIST Inhaled Oxygen Concentration - - Weight 46 kg (101 lb 6.4 oz) 07/21/2013 9:38 AM CDT Height 164.5 cm (5' 4.75) 07/21/2013 9:38 AM CD T Body Mass Index 17 07/21/2013 9:38 AM CDT Plan of Treatment Health Maintenance Due Date Last Done Comments Cervical Cancer Screening Due 1999 Chlamydia 1999 Hep C Screening (Preventive Services) 1999 HIV Screening (Preventive Services) 2015 Adult Preventive Visit 2017 DTaP/Tdap/Td (7 - Tdap) 12/06/2020 12/07/19 11, 01/19/2004, 09/19/2000, Additional history exists COVID-19 Vaccine (3 season) 2023 08/31/2020, 08/03/2020 Influenza (Season Ended) 2024 022, 01/13/2021, 02/26/2020, Additional history exists Zoster/Shingles (1 of 2) 2049 HepB Completed 02/14/2000, 06/06, 1999 Hib Completed 02/14/2000, 02/03, 1999, Additional history exists Pneumococcal Aged Out 09/19/2000, 02/03, 02/13/2000, Additional history exists No longer eligible based on patient's age to complete this topic IPV (Polio) Completed 01/19/2004, 08/05, 1999, Additional history exists Varicella Completed 12/06/2010, 01/04, 01/19/2004, Additional history exists MCV4 Aged Out 07/15/2020 No longer eligi ble based on patient's age to complete this topic HPV Vaccine Completed 02/20/2021, 09/03, 07/15/2020 HepA Aged Out No longer eligi ble based on patient's age to complete this topic Care Teams Rural Route Mail Carrier Relationship Specialty Start Date End Date No Primary/Referring, Phy PCP - General 04/22/23
--- OUTSIDE RECORDS SUMMARY | 2023-10-03 21:23 | XMS_ITS | Encounter Summary ---
Author Organization [facility] Address [address] [place] [address] Care Team Providers Care Recreation Therapist Name Role Phone Jyoti Vann APRN, C.N.P. Primary Care Provi teresa Unavailable Encounter Details Date Type Department Care Team (Latest Contact Info) Description 08/09/2023 9:15 AM CDT Clinical Communication Virtual Review in [place], [place] [address] [place] [phone] Social History Tobacco Use Types Packs/Day Years Used Date Smoking Tobacco: Never Passive Smoke Exposure: Past Smokeless Tobacco: Never Tobacco Cessation:Counseling Given: Not Answered Comments:Vape Alcohol Use Standard Drinks/Week Comments Yes 0 (1 standard drink = 0.6 oz pure alcohol) Have alcohol a couple times a month Humiliation, Afraid, Rape, and Kick questionnair e [...] often do you attend chur ch or anabaptist services? Never 08/29/2022 Do you belong to any clubs o r organizations such as yazidi groups, unions, fraternal or athletic groups, or [...] Answer Date Recorded PHQ-2 Score 4 05/16/2023 [facility] - Occupational Stress Questionnaire Answer Date Recorded [...] to strenuous exercise (like a brisk walk)? 5 days 08/29/2022 On average, how many minutes do you engage in exercise at this level? 20 min 08/29/2022 Hunger Vital Sign Answer Date Recorded Within the past 12 months, y ou worried that your food would run out before you got the money to buy more. Sometimes true Within the past 12 months, t he food you bought just didn't last and you didn't have money to get more. Sometimes true PRAPARE - Transportation Answer Date Re corded In the past 12 months, has l ack of transportation kept you from medical appointments or from getting medications? No 01/04 In the past 12 months, has l ack of transportation kept you from meetings, work, or from getting things needed for daily living? No 01/19/2023 Depression Answer Date Recor ded PHQ-9 Total Score (max 27) 8 05/16 Nutrition Answer Date Recorded On average, how many serving s of fruits and vegetables do you eat per day (serving size is equal to 1 cup or approximately the size of a tennis ball)? 0-1 08/29/2022 Dental Answer Date Recorded Dental: Regular Dentist Yes 08/30/19 Employment Answer Date Recorded Employment status Employed and actively working without restrictions 08/29/2022 Housing Stability Answer Date Recorded What is your living situation today? I have a [facility] place to live 01/19/2023 Education Answer Date Recorded What is the highest level of school you have completed or the highest degree you have received? 12th grade 08/29/2022 Sex and Gender Information Value Date Recorded Sex Assigned at Female 07/26/2017 10:00 AM CDT Gender Identity Female 07/26/2017 10:00 AM CDT Sexual Orientation Straight 07/26/2017 10 :00 AM CDT documented as of this encounter Plan of Treatment Not on file documented as of this encounter Visit Diagnoses Not on filedocumented in this encounter Additional Health Concerns Assessment Noted Time PHQ-9 Depression Total Score: 8 05/16/19 24 6:00 PM PARATRANSIT DRIVER documented as of this encounter Care Teams Recreation Therapist Relationship Specialty Start Date End Date Jyoti Vann APRN, C.N.P. PCP - General Family Medicine 02/01/23 09/26/23 documented as of this encounter
--- OUTSIDE RECORDS SUMMARY | 2023-10-03 21:23 | XMS_ITS | Encounter Summary ---
Author Organization [facility] Address [address] [place] [address] Care Team Providers Care Manager Copy Name Role Phone Jyoti Vann APRN, C.N.P. Primary Care Provi teresa Unavailable Reason for Visit * Outpatient (Routine) - Closed Specialty Diagnoses / Procedures Referred By Safia abdullahi Referred To Contact Hematology Oncology Tony Larson M.D. [address] [place] [phone] [facility] Referral ID Status Reason Start Date Expiration Date Visits Re quested Visits Authorized [id number] Closed 08/27/2023 02/25/2025 1 1 Encounter Details Date Type Department Care Team (Latest Contact Info) Description 09/13/2023 10:00 AM CDT Virtual Visit Division of Hematology in [place], [place] [address] [place] [phone] Tony Larson M.D. [address] [place] [phone] Eosinophilia Secondary (Primary Dx); Lymphadenopathy Social History Tobacco Use Types Packs/Day Years Used Date Smoking Tobacco: Former Cigarettes Passive Smoke Exposure: Past Smokeless Tobacco: Never Comments:Vape Alcohol Use Standard Drinks/Week Comments Yes 0 (1 standard drink = 0.6 oz pure alcohol) Have alcohol a couple times a month [facility] Utilities Answer Date Recorded In the past 12 months has [employer], gas, oil, or water [employer] threatened to shut off services in your [...] 08/29/2022 How often do you attend chur or mandaen services? Never 08/29/2022 Do you belong to any clubs o r organizations such as restoration groups, unions, fraternal or athletic groups, or [...] Answer Date Recorded PHQ-2 Score 4 05/16/2023 [facility] - Occupational [...] money to buy more. Never true 09/10/19 Within the past 12 months, t he [...] your living situation today? I have a [facility] place to live 09/10/2023 Education Answer Date Recorded What is the highest level of school you have completed or the highest degree you have received? 12th grade 08/29/2022 Sex and Gender Information Value Date Recorded Sex Assigned at Female 07/26/2017 10:00 AM CDT Gender Identity Female 07/26/2017 10:00 AM CDT Sexual Orientation Straight 07/26/2017 10 :00 AM CDT documented as of this encounter Progress Notes * Tony Larson M.D. - 09/13/2023 10:00 AM CDT This visit was requested by the patient due to eosinophilia. I mentioned to the patient that there may be a charge for this visit. The patient consented to continue. I spent a total of 7 minutes withthe patient. Referring Provider Marta Meza M.D. CHIEF COMPLAINT/REASON FOR VISIT Eosinophilia Lymphadenopathy HISTORY OF PRESENT ILLNESS In June 2016 she had absolute eosinophilic count of 1.75 since then she has been always having eosinophilia. In a recent CBC showed improved eosinophilic count down to 0.93. Otherwise she has normal hemoglobin white count and platelets. She has been seen by our colleagues from pediatric Hematology Dr. Rodas and adult allergy and pediatric allergy in the past. In terms of the lymph nodes I was told today that goes back to 2014. In 2020 she had a lymph node biopsy on September which was negative. Another lymph node biopsy was done in September 2021 from the axilla which was negative. Finally an excisional biopsy on February 2022 was also reactive. She also saw Dr. Nye from adult Hematology in [place] who did some testing including hepatitis and HIV which were negative among others. She was started on dupilumab in 2022 with improvement of her eczema/dermatitis. In the past she was also found to have high IgE and has asthma. She had a PET scan done in September 2021 which showed some activity in the tonsils thymus and bilateral axilla. At [employer], tryptase level was not increased. Flow cytometry for leukemia lymphoma was negative from peripheral blood. Fish for eosinophilia was negative. REVIEW OF SYSTEMS Twelve systems reviewed and were negative otherwise mentioned in HPI ASSESSMENT / PLAN #1 Eosinophilia Secondary chronic #2 Lymphadenopathy reactive Spoke today with the patient mother over the phone over the results In essence or our workup has come back negative. We have checked for the possibility of mastocytosis with a tryptase being low it makes it less likely. We have checked for leukemia lymphoma by peripheral blood flow which was negative. We have checked her also for genetic abnormalities that are associated with myeloid neoplasm with eosinophilia they were negative too Therefore in summary she does have chronic eosinophilia, today better than before with no evidence of hematological scoop driver. This could be idiopathic versus secondary to her asthma/eczema. She also has evidence of chronic lymphadenopathy with no progression over multiple years and several negative biopsies. If this gets bigger in the future a biopsy can be done. If positive for lymphoma feel free to refer back to Hematology. Several questions were answered in details Plan: Treatment: Observation Goals: Labs: CBC with diff every 6-12 months Transfusion: Return: P.r.n. Education We discussed the diagnosis and treatment plan in detail. The patient expressed understanding of thecontent. No apparent learning barriers were identified; learning preferences include listening. Signed by: Tony Larson M.D. 09/13/2023 9:44 AM CDT documented in this encounter Plan of Treatment Not on file documented as of this encounter Visit Diagnoses Diagnosis Eosinophilia Secondary- Primary Lymphadenopathy documented in this encounter Additional Health Concerns Assessment Noted Time PHQ-9 Depression Total Score: 8 05/16/19 24 6:00 PM RANGE MANAGEMENT SPECIALIST documented as of this encounter Care Teams Manager Copy Relationship Specialty Start Date End Date Jyoti Vann APRN, C.N.P. PCP - General Family Medicine 02/01/23 09/26/23 documented as of this encounter
--- OUTSIDE RECORDS SUMMARY | 2023-10-03 21:23 | XMS_ITS | Encounter Summary ---
Author Organization [facility] Address [address] [place] [address] Care Team Providers Care Telecom Field Technician Name Role Phone Jyoti Vann APRN C.N.P. Primary Care Provi teresa Unavailable Reason for Referral * Outpatient (Routine) - Closed Specialty Diagnoses / Procedures Referred By Contac t Referred To Contact Diagnoses Surveillance Intrauterine Device Procedures US Pelvis Transvaginal and Transabdominal Amy Vernon APRN C.N.P., M.S.N. [address] [place] [phone] [facility] Referral ID Status Reason Start Date Expiration Date Visits Re quested Visits Authorized [id number] Closed 07/02/2023 07/01/2024 1 1 AND SYS INTEGRATION SENIOR MANAGER Reason for Visit * Reason Comments string check No complaints * Outpatient (Routine) - Closed Specialty Diagnoses / Procedures Referred By Contac t Referred To Contact Obstetrics and Gynecology Amy Vernon APRN, C.N.P., M.S.N. [address] [place] [address] [facility] Referral ID Status Reason Start Date Expiration Date Visits Re quested Visits Authorized [id number] Closed 05/21/2023 05/20/2026 1 1 Encounter Details Date Type Department Care Team (Late st Contact Info) Description 07/02/2023 3:15 PM BUS AND SYS INTEGRATION SENIOR MANAGER Office Visit Department of Obstetrics and Gynecology in [place], [place] [address] [place] [phone] Amy Vernon APRN C.N.P., M.S.N. [address] [place] [phone] Surveillance Intrauterine Device (Primary Dx) Discharge Disposition: Home or Self Care Social History Tobacco Use Types Packs/Day Years Used Date Smoking Tobacco: Never Passive Smoke Exposure: Past Smokeless Tobacco: Current Comments:Vape Alcohol Use Standard Drinks/Week Comments Yes [...] often do you attend chur ch or cheondoism services? Never 08/29/2022 Do you belong to any clubs o r organizations such as muslim groups, unions, fraternal or athletic groups, or [...] Answer Date Recorded PHQ-2 Score 4 05/16/2023 [facility] Occupat [facility] - Occupational Stress Questionnaire Answer Date [...] have a [facility] place to live 01/19/2023 Education Answer Date Recorded What is the highest level of school you have completed or the highest degree you have received? 12th grade 08/29/2022 Sex and Gender Information Value Date Recorded Sex Assigned at Female 07/26/2017 10:00 AM CDT Gender Identity Female 07/26/2017 10:00 AM CDT Sexual Orientation Straight 07/26/2017 10 :00 AM CDT documented as of this encounter Last Filed Vital Signs Vital Sign Reading Time Taken Comments Blood Pressure 121/77 07/02/2023 3:04 PM BUS AND SYS INTEGRATION SENIOR MANAGER Pulse 99 07/02/2023 3:04 PM BUS AND SYS INTEGRATION SENIOR MANAGER Temperature 36.5 ??C (97.7 ??F) 07/02/2023 3:04 PM CS T Respiratory Rate - - Oxygen Saturation - - Inhaled Oxygen Concentration - - Weight 64.5 kg (142 lb 3.2 oz) 07/02/2023 3:04 P M BUS AND SYS INTEGRATION SENIOR MANAGER Height - - Body Mass Index 22.61 05/21/2023 3:46 PM BUS AND SYS INTEGRATION SENIOR MANAGER documented in this encounter Progress Notes * Amy Vernon, NATHALY, C.N.P., M.S.N. - 07/02/2023 3:15 PM CST SUBJECTIVE REASON FOR VISIT String check HISTORY OF PRESENT ILLNESS Ms. Schultz is a 23 y.o. who presents for IUD string check. She had the Mirena IUD inserted 05/21/23 for contraception and menstrual control. History of menorrhagia and dysmenorrhea present. She reports a menstrual flow occurred following placement, then followed by persistent light vaginal spotting. Seems to occur every other day, not requiring the use of sanitary products but noticeable with wiping or in underwear at end of day. She is also having mild menstrual like cramping intermittently throughout. I have reviewed and updated the following: allergies, current medications, medical history, and problem list REVIEW OF SYSTEMS A comprehensive review of systems was negative except for: Genitourinary: vaginal bleeding and pelvic cramping OBJECTIVE VITAL SIGNS Temperature: [36.5 ??C] 36.5 ??C Blood Pressure: (121)/(77) 121/77 Weight: [64.5 kg] 64.5 kg Pulse Rate: [99] 99 PHYSICAL EXAM Constitutional General: She is not in acute distress. Appearance: Normal appearance. She is well-groomed. She is not ill-appearing. Pelvic exam was performed with patient supine. Clitoris: Clitoris is normal. Perineum: The perineum is normal. Vagina: The vagina exhibits bleeding. The vagina exhibits no erythema and no tenderness. Cervix: The cervix is normal. Cervix exhibits visible IUD strings. Cervix does not exhibit motion tenderness. Prolapse: well-supported anterior, apical, posterior, vaginal kennedy. Uterus: The uterus is normal. The uterus is smooth. Genitourinary Comments: Red discharge present on vulva. Cervix is closed. IUD strings of appropriate length noted along cervix. Bleeding present. No purulent discharge or CMT Lymphadenopathy System normal. Neurological Mental Status: She is alert. Psychiatric Mood and Affect: Mood normal. Speech: Speech normal. Behavior: Behavior normal. Behavior is cooperative. Cognition and Memory: Cognition normal. ASSESSMENT / PLAN #1 Surveillance Intrauterine Device With history of menorrhagia and dysmenorrhea, her symptoms could certainly be normal and we discussed the timeline it can take for both to improve. As precautionary measure, I recommend urine test and pelvic US for IUD positioning evaluation. She was agreeable. If testing is reassuring, recommend continued expectant management with anticipation of improvement over the next several months. She was comfortable with the follow up plan. Amy Vernon APRN, C.N.P., M.S.N. AND SYS INTEGRATION SENIOR MANAGER documented in this encounter Plan of Treatment Not on file documented as of this encounter Procedures Procedure Name Priority Date/Time Associated Diagnosis Comments TEST, POCT, U (LAB) Routine 07/02/2023 3:17 PM BUS AND SYS INTEGRATION SENIOR MANAGER Surveillance Intrauterine Device documented in this encounter Results * US Pelvis Transvaginal and Transabdominal (07/05/2023 4:49 PM BUS AND SYS INTEGRATION SENIOR MANAGER) Anatomical Region Laterality Modality Pelvis, Ultrasound RST LOS, Ultrasound ARZ LOS, Ultrasound FLA LOS N/A Ultrasound Impressions 07/05/2023 4:54 PM BUS AND SYS INTEGRATION SENIOR MANAGER 1. IUD in satisfactory position in the endometrial cavity. 2. Uterus, endometrium, and ovaries normal. 3. No free fluid in the pelvis. Narrative 07/05/2023 4:54 PM BUS AND SYS INTEGRATION SENIOR MANAGER EXAM: US PELVIS TRANSVAGINAL AND TRANSABDOMINAL COMPARISON: [...] the pelvis. Amy Vernon APRN, C.N.P., M.S.N. IMG US PROCEDURES * Test, POCT, Urine (Lab) (07/02/2023 3:17 PM BUS AND SYS INTEGRATION SENIOR MANAGER) Test, POCT, U Negative 07/02/2023 3:44 PM BUS AND SYS INTEGRATION SENIOR MANAGER NPRG Urine (Urine, Midstream) 07/02/2023 3:17 PM BUS AND SYS INTEGRATION SENIOR MANAGER 07/02/2023 3:38 PM BUS AND SYS INTEGRATION SENIOR MANAGER Amy Vernon APRN, C.N.P., M.S.N. LAB POCT ORDERABLES - DEVICE [facility] [address] [place] [address], [facility] NPRG [facility] [address] [place] [address] documented in this encounter Visit Diagnoses Diagnosis Surveillance Intrauterine Device- Primary Surveillance Intrauterine Device documented in this encounter Additional Health Concerns Assessment Noted Time PHQ-9 Depression Total Score: 8 05/16/19 24 6:00 PM BUS AND SYS INTEGRATION SENIOR MANAGER documented as of this encounter Care Teams Telecom Field Technician Relationship Specialty Start Date End Date Jyoti Vann APRN, C.N.P. PCP - General Family Medicine 02/01/23 09/26/23 documented as of this encounter
--- OUTSIDE RECORDS SUMMARY | 2023-10-03 21:23 | XMS_ITS | Encounter Summary ---
Author Organization [facility] Address [address] [place] [id number] Care Team Providers Care Clinical Lab Clerk Name Role Phone Jyoti Vann APRN, C.N.P. Primary Care Provi jony Unavailable Encounter Details Date Type Department Care Team (Latest Contact Info) Description 08/27/2023 2:29 PM CDT - 08/27/2023 11:59 PM CDT Hospital Encounter Department of Laboratory Medicine and Pathology, [place], [place] [address] [place] [phone] Tony Larson M.D. [address] [place] [phone] Eosinophilia Secondary Discharge Disposition: Home or Self Care Social [...] often do you attend chur ch or mosque services? Never 08/29/2022 Do you belong to any clubs o r organizations such as spiritism groups, unions, fraternal or athletic groups, or [...] Answer Date Recorded PHQ-2 Score 4 05/16/2023 [facility] - Occupational Stress [...] your living situation today? I have a [facility] place to live 01/19/2023 Education Answer [...] AM CDT documented as of this encounter Medications at Time of Discharge Medication Sig Dispensed Refills Start Date End Date albuterol 90 mcg/actuation inhalerIndications:Asthm a Mild Intermittent (HCC) Inhale 2 puffs every 4 (four) hours as needed (for cough, wheeze, chest tightness, shortness of breath). 18 g 2 01/24/2023 beclomethasone (QVAR REDIHALER) 40 mcg/actuation inhaler Inhale 1 puff 2 (two) times a day. Rinse mouth with water after use to reduce aftertaste and incidence of candidiasis. Do not swallow. 21.2 g 6 04/01/2023 cetirizine (ZyrTEC) 10 mg tablet Take 10 mg by mouth as needed. 07/21/2013 clobetasoL (TEMOVATE) 0.05 % cream Apply 1 application. topically 2 (two) times a day as needed. Apply to skin. dupilumab (Dupixent Pen) 300 mg/2 mL injectionIndications:Jony matitis Atopic Inject 2 mL (300 mg total) under the skin every 14 (fourteen) days. 12 mL 3 08/12/2023 ferrous sulfate 325 mg (65 mg iron) tablet Take 1 tablet by mouth daily. 07/02/2016 fexofenadine (JERI) 180 mg tablet 180 mg daily. 01/31/2022 fluticasone propionate (FLONASE) 50 mcg/actuation nasal sprayIndications:Rhiniti s Allergic Administer 2 sprays into each nostril daily. 16 g 12 01/24/2023 hydrocortisone (for_CORTIZONE) 1 % ointment Apply topically as needed. ibuprofen (for_ADVIL,MOTRIN) 200 mg tablet Take 1 tablet by mouth as needed for pain. 07/30/2016 levonorgestreL (MIRENA) 21 mcg/24 hours (8 yrs) 52 mg IUD 1 each by intrauterine route continuously. 05/21/2023 mupirocin (BACTROBAN) 2 % ointment Apply 1 application topically as needed. tacrolimus (PROTOPIC) 0.1 % ointmentIndications:Derm atitis Atopic Apply 1 Application topically 2 (two) times a day. Apply to face and neck. 100 g 3 06/06/2023 triamcinolone (KENALOG) 0.5 % cream Apply topically as needed. 07/08/2023 documented as of this encounter Plan of Treatment Not on file documented as of this encounter Procedures Procedure Name Priority Date/Time Associated Diagnosis Comments LEUKEMIA/LYMPHOMA PHENOTYPE, B Routine 08/27/2023 2:48 PM CDT Eosinophilia Secondary JAK2 V617F MUTATION DETECTION, B Routine 08/27/2023 2:48 PM CDT Eosinophilia Secondary T-CELL RECEPTOR GENE REARRANGEMENT, PCR Routine 08/27/2023 2:48 PM CDT Eosinophilia Secondary TRYPTASE, S Routine 08/27/2023 2:48 PM CDT Eosinophilia Secondary documented in this encounter Results * Tryptase (08/27/2023 2:48 PM CDT) Tryptase, S 5.9 <11.5 ng/mL 08/28/2023 3:08 PM CDT [facility] Blood (Blood, Venous) 08/27/2023 2:48 PM CDT 08/27/2023 6:42 PM CDT Jamesf Neo [facility] LAB BLOOD ADD-ON [facility] [address] [place] [address] [facility] [address] [place] [address] * T-Cell Receptor Gene Rearrangement, PCR (08/27/2023 [...] reagent. Its performance characteristics were determined by [facility] in a manner consistent with CLIA requirements. This test has not been cleared or approved by the U.S. Food and Drug Administration. Blood (Blood, Venous) 08/27/2023 2:48 PM CDT 08/27/2023 4:02 PM CDT Tony Larson M.D. LAB BLOOD ADD-ON [facility] [address] [place] [address], [facility] DTL [address] [place] [address] * Leukemia/Lymphoma Immunophenotyping by Flow Cytometry, Blood (08/27/2023 2:48 PM CDT) Pathologist [facility] LCMSB Result Performed 08/28/2023 1:40 PM CDT DTL Final Diagnosis: Peripheral blood, flow cytometric immunophenotyping: Normal immunophenotyping results. ??No monotypic B-cell population, phenotypically aberrant T-cell population or increase in blasts identified. Reviewed by: Asha Moran M.D., Ph.D. 08/28/2023 1:40 PM CDT DTL [...] 1:40 PM CDT DTL Microscopic Description A [id number] d slide prepared from the flow cytometry specimen is examined. ??No morphologic features of acute leukemia or lymphoma are identified. 08/28/2023 1:40 PM CDT DTL Comment: ----ADDITIONAL INFORMATION---- This test was developed using an analyte specific reagent. Its performance characteristics were determined by [facility] in a manner consistent with CLIA requirements. This test has not been cleared or approved by the U.S. Food and Drug Administration. Blood (Blood, Venous) 08/27/2023 2:48 PM CDT 08/27/2023 3:32 PM CDT Tony Larson M.D. LAB GENETIC TESTING Performing Organization Address [facility] Co de Phone Number [facility] [address] [place] [address], [place] DTL [address] [place] [address] * JAK2 V617F Mutation Detection, Blood (08/27/2023 2:48 PM CDT) JAK2 Result see interpretation 08/29 12:32 PM CDT DTL Interpretation Peripheral blood, JAK2 V617F mutation analysis: Negative for JAK2 V617F. A negative [id number] test result does not exclude the possibility [...] assay has been determined at 0.06% (see [facility] Interpretive Handbook for method details). This test was developed and its performance characteristics determined by [facility] in a manner consistent with CLIA requirements. This test has not been cleared or approved by the U.S. Food and Drug Administration. Blood (Blood, Venous) 08/27/2023 2:48 PM CDT 08/27/2023 4:02 PM CDT Tony Larson M.D. LAB GENETIC TESTING Performing Organization Address City/[facility]/ZIP Co de Phone Number [facility] [address] [place] [address], [facility] DTL [address] [place] [address] documented in this encounter Visit Diagnoses Diagnosis Eosinophilia Secondary documented in this encounter Additional Health Concerns Assessment Noted Time PHQ-9 Depression Total Score: 8 05/16/19 24 6:00 PM VETERINARY RADIOLOGIST documented as of this encounter Care Teams Clinical Lab Clerk Relationship Specialty Start Date End Date Jyoti Vann APRN, C.N.P. PCP - General Family Medicine 02/01/23 09/26/23 documented as of this encounter
--- OUTSIDE RECORDS SUMMARY | 2023-10-03 21:23 | XMS_ITS | Encounter Summary ---
Author Organization [facility] Address [address] [place] [address] Care Team Providers Care Electric Fork Operator Name Role Phone Jyoti Vann APRN, C.N.P. Primary Care Provi teresa Unavailable Reason for Referral * Outpatient (Routine) - Closed Specialty Diagnoses / Procedures Referred By Safia abdullahi Referred To Contact Hematology Oncology Tony Larson M.D. [address] [place] [phone] [facility] Referral ID Status Reason Start Date Expiration Date Visits Re quested Visits Authorized [id number] Closed 08/27/2023 02/25/2025 1 1 Reason for Visit * Outpatient (Routine) - Closed Specialty Diagnoses / Procedures Referred By Safia abdullahi Referred To Contact Hematology Diagnoses Lymphadenopathy Eosinophilia Unspecified Marta Meza M.D. [address] [place] [address] [facility] Referral ID Status Reason Start Date Expiration Date Visits Re quested Visits Authorized [id number] Closed 08/12/2023 02/10/2025 1 1 Encounter Details Date Type Department Care Team (Latest Contact Info) Description 08/27/2023 1:30 PM CDT Comprehensive Visit Division of Hematology in [place], [place] [address] [place] [phone] [place] [phone] Eosinophilia Secondary (Primary Dx) Social History Tobacco Use Types Packs/Day Years [...] week 08/29/2022 How often do you attend [facility] or latter day services? Never 08/29/2022 Do you belong to any clubs o r organizations such as catholic groups, unions, fraternal or athletic groups, or [...] Answer Date Recorded PHQ-2 Score 4 05/16/2023 [facility] - Occupational Stress Questionnaire Answer Date [...] Sign Reading Time Taken Comments Blood Pressure 120/80 08/27/2023 1:21 PM CDT Pulse 89 08/27/2023 1:21 PM CDT Temperature 36.6 ??C (97.8 ??F) 08/27/2023 1:21 PM CD T Respiratory Rate - - Oxygen Saturation - - Inhaled Oxygen Concentration - - Weight 64.8 kg (142 lb 13.7 oz) 08/27/2023 1:21 PM CDT Height 171.5 cm (5' 7.52) 08/27/2023 1:21 PM CD T Body Mass Index 22.03 08/27/2023 1:21 PM CDT documented in this encounter Consult Notes * Tony Larson M.D. - 08/27/2023 1:30 PM CDT SUBJECTIVE Referring Provider Marta Meza M.D. CHIEF COMPLAINT/REASON FOR VISIT Eosinophilia Lymphadenopathy HISTORY OF PRESENT ILLNESS Ms. Schultz is a 23-year-old female from [place] comes today with her mother for further recommendations Her problem goes back to at least June 2016 when she had absolute eosinophilic count of 1.75 since then she has been always having eosinophilia. In fact the most recent CBC showed improved eosinophilic count down to 0.93. Otherwise she has normal hemoglobin white count and platelets. She has been seen by our colleagues from pediatric Hematology Dr. Rodas and adult allergy and pediatric allergyin the past. 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 In 2020 she had a lymph node biopsy on September which was negative. Another lymph node biopsy was done in September 2021 from the axilla which was negative. Finally an excisional biopsy was done on February 2022 which was also reactive. She also saw Dr. Nye from adult Hematology in [place] who did some testing including hepatitis and HIV which were negative among others Patient does report pain in the lymph node area but no other symptoms She was started on dupilumab in 2022 with improvement of her eczema/dermatitis. 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 She had a PET scan done in September 2021 which showed some activity in the tonsils thymus and bilateral axilla. REVIEW OF SYSTEMS Twelve systems reviewed and were negative otherwise mentioned in HPI Vitals: 08/27/23 1321 BP: 120/80 Patient Position: Sitting Pulse: 89 Temp: 36.6 ??C Height: 171.5 cm Weight: 64.8 kg TempSrc: Tympanic Body surface area is 1.76 meters squared. PHYSICAL EXAM General: PS 0 Mouth: no ulcers or bleed. Status post extraction of lower jaw teeth. Skin: No rash Lungs: Clear chest Heart: RRR Abdo: + bowel sounds, no splenomegaly Ext: + pulse Musculoskeletal: no joint swelling Neuro: AAOx3 Lymph: Tiny lymph node in the left groin. Unable to feel any lymph nodes in the axilla or cervical areas. Psych: good recent and remote memory ASSESSMENT / PLAN #1 Eosinophilia Secondary Chronic Met today with the patient her mother and answered their questions. Also reviewed several notes labs and images over the years. I also reviewed some of the biopsies scanned into medical records. In summary she has chronic mild eosinophilia that has gotten better in fact in the recent time compared to many years ago. Could be reactive to dermatitis, asthma, intolerance to allergens among manyothers. I did notice that no workup has been done from hematology to rule out the possibility of myeloid neoplasm with recurrent genetic abnormalities. We will proceed with blood test for that from the peripheral blood. I will go over the results in few weeks to make sure that there is no other explanation for her eosinophilia. Negative no further workup is needed. In terms of the lymph nodes she had extensive workup in the past with several biopsies all of whichare negative. Therefore I do not think there is any need from the hematology perspective to repeat or proceed with any further testing. My physical exam did not show any concerning findings. I will also get peripheral blood flow for the sake of completeness. LDH was normal Several questions were answered Plan: Treatment: TBD Goals: Labs: Transfusion: Return: 2 weeks phone visit Education We discussed the diagnosis and treatment plan in detail. The patient expressed understanding of thecontent. No apparent learning barriers were identified; learning preferences include listening. I spent 50 minutes face to face and non-face to face caring for the patient today. Signed by: Tony Lrason M.D. 08/27/2023 2:11 PM CDT documented in this encounter Plan of Treatment Scheduled Referrals Name Type Priority Associated Diagnoses Order Schedule Hematology office visit (clinic) [facility]; CMD; General Outpatient Referral Routine Expected: 09/10/2023 (Approximate), Expires: 11/25/2024 documented as of this encounter Results * Chronic Eosinophilia, Diagnostic FISH (08/27/2023 2:48 PM CDT) Result Summary Normal 08/29/2023 9:52 AM CDT [...] Method: Manual Probe vendors include: LDT = [facility] Developed AM = [employer], [employer] ([place], [place]) 08/29/2023 9:52 AM CDT DTL Disclaimer Applicable to Analyte Specific Reagent (ASR) and Laboratory Developed Tests (LDT). This test was developed and its performance characteristics determined by [facility] in a manner consistent with CLIA requirements. [...] M.D. LAB GENETIC TESTING Performing Organization Address City/[facility]/ZIP Co de Phone Number [facility] [address] [place] [address], [facility] DTL [address] [facility] [address] [place] [address] * Tryptase (08/27/2023 2:48 PM CDT) Tryptase, S 5.9 <11.5 ng/mL 08/28/2023 3:08 PM CDT [facility] Blood (Blood, Venous) 08/27/2023 2:48 PM CDT 08/27/2023 6:42 PM CDT Tony Larson M.D. LAB BLOOD ADD-ON [facility] [address] [place] [address] [facility] [address] [place] [address] * T-Cell Receptor Gene Rearrangement, PCR (08/27/2023 [...] reagent. Its performance characteristics were determined by [facility] in a manner consistent with CLIA requirements. This test has not been cleared or approved by the U.S. Food and Drug Administration. Blood (Blood, Venous) 08/27/2023 2:48 PM CDT 08/27/2023 4:02 PM CDT Tony Larson M.D. LAB BLOOD ADD-ON [facility] - [facility] [address] [place] [address], [facility] DTL [address] [facility] [address] [place] [address] * Leukemia/Lymphoma Immunophenotyping by Flow Cytometry, Blood (08/27/2023 2:48 PM CDT) Pathologist [facility] LCMSB Result Performed 08/28/2023 1:40 PM CDT [...] 1:40 PM CDT DTL Microscopic Description A Pisxlv-Fxaqwy-cswsng d slide prepared from the flow cytometry specimen is examined. ??No morphologic features of acute leukemia or lymphoma are identified. 08/28/2023 1:40 PM CDT DTL Comment: ----ADDITIONAL INFORMATION---- This test was developed using an analyte specific reagent. Its performance characteristics were determined by [facility] in a manner consistent with CLIA requirements. This test has not been cleared or approved by the U.S. Food and Drug Administration. Blood (Blood, Venous) 08/27/2023 2:48 PM CDT 08/27/2023 3:32 PM CDT Tony Larson M.D. LAB GENETIC TESTING [facility] - [facility] [address] [place] [address], [facility] DTL [address] [place] [address] * JAK2 V617F Mutation Detection, Blood (08/27/2023 2:48 PM CDT) JAK2 Result see interpretation 08/29 12:32 PM CDT DTL Interpretation Peripheral blood, JAK2 V617F mutation analysis: Negative for JAK2 V617F. A negative [id number] test result does not exclude the possibility [...] assay has been determined at 0.06% (see [facility] Laboratories Interpretive Handbook for method details). This test was developed and its performance characteristics determined by [facility] in a manner consistent with CLIA requirements. This test has not been cleared or approved by the U.S. Food and Drug Administration. Blood (Blood, Venous) 08/27/2023 2:48 PM CDT 08/27/2023 4:02 PM CDT Tony Larson M.D. LAB GENETIC TESTING [facility] [address] [place] [address], [facility] DT 200 [facility] 200 [place] [address] documented in this encounter Visit Diagnoses Diagnosis Eosinophilia Secondary- Primary documented in this encounter Additional Health Concerns Assessment Noted Time PHQ-9 Depression Total Score: 8 05/16/19 24 6:00 PM TELECOMMUNICATIONS ANALYST documented as of this encounter Care Teams Electric Fork Operator Relationship Specialty Start Date End Date Jyoti Vann APRN, C.N.P. PCP - General Family Medicine 02/01/23 09/26/23 documented as of this encounter
--- OUTSIDE RECORDS SUMMARY | 2023-10-03 21:23 | XMS_ITS | Encounter Summary ---
Author Organization [facility] Address [address] [place] [address] Care Team Providers Care Equal Opportunity Officer Name Role Phone Jyoti Vann APRN, C.N.P. Primary Care Provi teresa Unavailable Reason for Referral * Outpatient (Routine) - Authorized Specialty Diagnoses / Procedures Referred By Contac t Referred To Contact Dermatology Diagnoses Dermatitis Atopic Eosinophilia Unspecified Marta Meza M.D. 200 [place] [address] [facility] Referral ID Status Reason Start Date Expiration Date V isits Requested Visits Authorized [id number] Authorized 08/12/2023 02/10/2025 1 1 * Medication Prior Authorization - Authorized Specialty Diagnoses / Procedures Referred By Contac t Referred To Contact Diagnoses Dermatitis [place] [address] Referral ID Status Reason Start Date Expiration Date V isits Requested Visits Authorized [id number] Authorized 09/13/2023 09/12/2024 1 1 * Outpatient (Routine) - Closed Specialty Diagnoses / Procedures Referred By Contac t Referred To Contact Hematology Diagnoses Lymphadenopathy Eosinophilia Unspecified Marta Meza M.D. [address] [place] [phone] [facility] Referral ID Status Reason Start Date Expiration Date Visits Re quested Visits Authorized [id number] Closed 08/12/2023 02/10/2025 1 1 * Outpatient (Routine) - Authorized Specialty Diagnoses / Procedures Referred By Contjosselin t Referred To Contact Diagnoses Lymphadenopathy Procedures US Head Neck Soft Tissue Marta Meza M.D. 200 [place] [address] [facility] Referral ID Status Reason Start Date Expiration Date V isits Requested Visits Authorized [id number] Authorized 08/12/2023 08/11/2024 1 1 Reason for Visit * Outpatient (Routine) - Closed Specialty Diagnoses / Procedures Referred By Safia abdullahi Referred To Contact Dermatology Diagnoses Dermatitis Atopic Marta Meza M.D. 200 [place] [address] [facility] Referral ID Status Reason Start Date Expiration Date Visits Re quested Visits Authorized [id number] Closed 12/26/2022 12/25/2025 1 1 Encounter Details Date Type Department Care Team ([facility] st Contact Info) Description 08/12/2023 11:40 AM CDT Office Visit Department of Dermatology in [place], [place] [address] [place] [phone] Marta Meza M.D. [address] [place] [phone] Dermatitis Atopic (Primary Dx); Lymphadenopathy; Eosinophilia Unspecified Discharge Disposition: Home or Self Care Social [...] How often do you attend chur or worship services? Never 08/29/2022 Do you belong to any clubs o r organizations such as oriental orthodox groups, unions, fraternal or athletic groups, or [...] Date Recorded PHQ-2 Score 4 05/16/2023 [facility] - Occupational [...] your living situation today? I have a [facility] place to live 01/19/2023 Education Answer [...] as of this encounter Progress Notes * Marta Meza M.D. - 08/12/2023 11:40 AM CDT CHIEF COMPLAINT / REASON FOR VISIT Follow-up atopic dermatitis HISTORY OF PRESENT ILLNESS Ms. Kierra Schultz is a 23 y.o. female who presents today for follow-up of atopic dermatitis. I saw her in early September 2022, which was my first visit with her. She has a history of severe longstanding atopic dermatitis, as well as asthma and seasonal/environmental allergies. I elected to start her on dupilumab given her widespread dermatitis. I saw her for follow-up in December 26, at which time her trunk and extremities had cleared but she had continued flaring of her face and neck, as well as upper chest. We started tacrolimus 0.1% ointment twice daily, and she notes that these areas cleared within 1-2 months. She is currently incredibly happy with her dermatitis control while on the dupilumab. She denies conjunctivitis, injection site reactions, increased infections. She has a history of chronic eosinophilia. She denies any new pulmonary, cardiac symptoms or neuropathy. She also has a history of chronic lymphadenopathy, especially involving the left cervical area. Shehad a lymph node biopsy at an outside facility in July 2021 which showed reactive changes. She underwent PET-CT in February 1999, which showed increased activity within several axillary, cervical, and inguinal lymph nodes. The patient underwent excision of a left axillary lymph node which showed reactive lymphadenopathy, and no evidence of malignancy. She previously saw Genetics years ago and testing was negative for Marfan's. She also underwent testing with Immunology to rule out Job syndrome, which was negative. The following portions of the patient's history were reviewed and updated as appropriate: problem list, medications, allergies. REVIEW OF SYSTEMS No additional skin concerns. PHYSICAL EXAM General: Awake, alert, in no acute distress. Eyes: No scleral injection or icterus. Skin: I have examined the scalp, face, neck, right upper back, bilateral forearms and hands. Skin is clear of dermatitis. There is a small exophytic pink papule on the right abdomen consistent with benign nevus. There is a flesh- colored approximately 3 mm papule on the left anterior shoulder consistent with benign nevus. Right posterior shoulder with a pink/brown raised nevus consistent with benign nevus. Lymph: Left cervical palpable and tender enlarged lymph node. There is a palpable lymph node in theleft inguinal region as well. No palpable lymph nodes in the right inguinal or bilateral axillary areas. ASSESSMENT / PLAN #1 Atopic dermatitis, controlled on dupilumab Recommend continuing dupilumab 300 mg every 2 weeks. Refill provided. She utilizes tacrolimus 0.1% ointment twice daily for her face and neck, and this has cleared the dermatitis in these areas. She will continue with the tacrolimus ointment as needed. She will continue with sensitive skin cares. Plan for follow-up in one year, sooner if concerns. #2 Lymphadenopathy #3 Eosinophilia The patient has a history of chronic left cervical lymphadenopathy as well as eosinophilia. She hasa strong atopic history, so the eosinophilia may be secondary to that. However, I would like her toestablish care with Hematology to determine plan for ongoing monitoring. She underwent PET-CT in February 1999, which showed increased activity within several axillary, cervical, and inguinal lymph nodes. The patient underwent excision of a left axillary lymph node in February 2022 which showed reactive lymphadenopathy, and no evidence of malignancy. She had a left cervical lymph node biopsy at an outside facility in September 2021 which showed reactive changes. (reports scanned into Care Everywhere) Today I ordered cervical and inguinal ultrasound to assess for lymphadenopathy. I also ordered CBC,peripheral smear, LDH, CRP, and ESR. All questions answered. PATIENT EDUCATION Ready to learn. No apparent learning barriers were identified. Learning preferences include listening. Explained diagnosis and treatment plan; patient/guardian of patient expressed understanding of the content. documented in this encounter Plan of Treatment Scheduled Orders Name Type Priority Associated Diagnoses Orde r Schedule US Head Neck Soft Tissue Imaging RAD - Routine (most inpatients and all outpatients) Lymphadenopathy Expected: 08/12/2023, Expires: 11/10/2024 Scheduled Referrals Name Type Priority Associated Diagnoses Orde r Schedule Hematology - General consult (clinic) Outpatient Referral Routine Lymphadenopathy Eosinophilia Unspecified Expected: 08/12/2023, Expires: 11/10/2024 Dermatology office visit (clinic) Outpatient Referral Routine Dermatitis Atopic Eosinophilia Unspecified Expected: 08/11/2024 (Approximate), Expires: 11/10/2024 documented as of this encounter Results * LD (Lactate Dehydrogenase) (08/12/2023 12:39 PM CDT) Lactate Dehydrogenase (LD), S 190 122 - 222 U/L 08/12/2023 3:01 PM CDT DTL Blood (Blood, Venous) 08/12/2023 12:39 PM CDT 08/12/2023 1:30 PM CDT Marta Meza M.D. LAB BLOOD NON ADD-O N Performing Organization Address City/[facility]/ZIP Co de Phone Number [facility] [address] 200 [place] [address] * (ABNORMAL) Sedimentation Rate (08/12/2023 12:39 PM CDT) Pathologist [facility] Sedimentation Rate, B 25(H) 2 - 20 mm/h 08/12/2023 3:01 PM CDT DTL Blood (Blood, Venous) 08/12/2023 12:39 PM CDT 08/12/2023 1:05 PM CDT Marta Meza M.D. LAB BLOOD ADD-ON Performing Organization Address [facility] Co de Phone Number [facility] 200 [place], [place] [phone] [place] [address] 200 [place] [address] * (ABNORMAL) CRP (C-Reactive Protein) (08/12/2023 12:39 PM CDT) C-Reactive Protein (CRP), S 5.0(H) <5.0 mg/L 08/12/2023 3:01 PM CDT DTL Blood (Blood, Venous) 08/12/2023 12:39 PM CDT 08/12/2023 1:30 PM CDT Marta Meza M.D. LAB BLOOD ADD-ON [facility] 200 [place] [address], [facility] DTL [facility] 200 [place] [address] * (ABNORMAL) SPSMA Result (08/12/2023 12:39 PM CDT) Pathologist [facility] Neutrophilic Segs and Bands 64 50 - [...] count. Interpretation See Comment 4:03 PM CDT DHPM Comment:Peripheral blood sme ar reviewed: no diagnostic abnormalities are seen. Reviewed by: Marito 08/12/2023 4:03 PM CDT DH Blood (Blood, Venous) 08/12/2023 12:39 PM CDT 08/12/2023 1:05 PM CDT Marta Meza M.D. LAB BLOOD ADD-ON [facility] 200 [place] [address], [facility] 200 [place] [address] * (ABNORMAL) CBC with Differential, Blood (08/12/2023 12:39 PM CDT) Pathologist [facility] Hemoglobin 12.2 11.6 - 15.0 g/dL 08/12/2023 [...] CDT Marta Meza M.D. LAB BLOOD ADD-ON [facility] [address] [place] [address], 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 PCP - General Family Medicine 02/01/23 09/26/23 documented as of this encounter
--- OUTSIDE RECORDS SUMMARY | 2023-10-03 21:23 | XMS_ITS ---
Author Organization [facility] Address [address] [place] [address] Care Team Providers Care Owner Oral Surgeon Name Role Phone Unavailable Unavailable Unavailable Surgery Details Not on file Complications Check Surgery Details section. Procedure Estimated Blood Loss Check Surgery Details section. Procedure Findings Check Surgery Details section. Procedure Specimens Taken Check Surgery Details section.
--- OUTSIDE RECORDS SUMMARY | 2023-10-03 21:23 | XMS_ITS | Encounter Summary ---
Author Organization [facility] Address [address] [place] [id number] Care Team Providers Care Underwriting Consultant Name Role Phone Jyoti Vann APRN, C.N.P. Primary Care Provi jony Unavailable Encounter Details Date Type Department Care Team (Latest Contact Info) Description 08/27/2023 2:29 PM CDT - 08/27/2023 11:59 PM CDT Hospital Encounter Department of Laboratory Medicine and Pathology, [place], [place] [address] [place] [phone] Tony Larson M.D. [address] [place] [phone] Eosinophilia Secondary Discharge Disposition: Home or Self [...] often do you attend chur ch or confucianism services? Never 08/29/2022 Do you belong to any clubs o r organizations such as latter-day groups, unions, fraternal or athletic groups, or [...] Answer Date Recorded PHQ-2 Score 4 05/16/2023 [facility] - Occupational [...] your living situation today? I have a [facility] place to live 01/19/2023 Education Answer [...] Secondary documented in this encounter Results * Chronic Eosinophilia, Diagnostic [...] Method: Manual Probe vendors include: LDT = [facility] Developed AM = [employer] ([place], [place]) 08/29/2023 9:52 AM CDT DTL Disclaimer Applicable to Analyte Specific Reagent (ASR) and Laboratory Developed Tests (LDT). This test was developed and its performance characteristics determined by [facility] in a manner consistent with [...] CDT Tony Larson M.D. LAB GENETIC TESTING 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 PCP - General Family Medicine 02/01/23 09/26/23 documented as of this encounter
--- OUTSIDE RECORDS SUMMARY | 2023-10-03 21:23 | XMS_ITS | Encounter Summary ---
Author Organization [facility] Address [address] [place] [address] Care Team Providers Care Medical Officer Name Role Phone Jose Martin Ramirez M.D. Primary Care Provider [phone] Reason for Visit * Reason Comments Contraception IUD string check * Appointment Request (Routine) - Closed Specialty Diagnoses / Procedures Referred By Contac t Referred To Contact Obstetrics and Gynecology Referral ID Status Reason Start Date Expiration Date Visits Re quested Visits Authorized [id number] Closed 10/03/2023 10/02/2024 1 1 Encounter Details Date Type Department Care Team (Late st Contact Info) Description 10/03/2023 2:00 PM CDT Office Visit Department of Obstetrics and Gynecology in [place], [place] [address] [place] [phone] Amy Vernon, NATHALY, C.N.P., M.S.N. [address] [place] [phone] Surveillance Intrauterine Device (Primary Dx) Discharge Disposition: Home or Self Care Social History Tobacco Use Types Packs/Day Years Used Date Smoking Tobacco: Some Days Cigarettes Passive Smoke Exposure: Past Smokeless Tobacco: Never Tobacco Cessation:Ready to Q uit: Not Asked Comments:Vape Alcohol Use Standard Drinks/Week Comments Not Currently 0 (1 standard drink = 0.6 oz pure alcohol) Have alcohol a couple times a month [facility] Utilities Answer Date Recorded In the past 12 months has th e electric, gas, oil, or water company threatened to shut off services in your [...] How often do you attend chur or episcopal services? Never 08/29/2022 Do you belong to any clubs o r organizations such as presybeterian groups, unions, fraternal or athletic groups, or [...] Answer Date Recorded PHQ-2 Score 4 05/16/2023 [facility] - Occupational Stress [...] Pulse 82 10/03/2023 1:55 PM CDT Temperature - - Respiratory Rate - - Oxygen Saturation - - Inhaled Oxygen Concentration - - Weight 66.4 kg (146 lb 6.4 oz) 10/03/2023 1:55 P M CDT Height 171.5 cm (5' 7.52) 10/03/2023 1:55 PM CD T Body Mass Index 22.58 10/03/2023 1:55 PM CDT documented in this encounter Progress Notes * Amy Vernon, NATHALY, C.N.P., M.S.N. - 10/03/2023 2:00 PM CDT SUBJECTIVE REASON FOR VISIT String check HISTORY OF PRESENT ILLNESS Ms. Schultz is a 23 y.o. who presents for IUD string check. She had the Mirena IUD inserted 05/21/23 for menorrhagia. She had prolonged spotting following that,so a pelvic US was performed 07/05/23 and showed proper placement and no other concerns. She reports amenorrhea following that for at least 2 months. She had onset of menstrual bleeding 4 days ago, associated with pelvic cramping, and was worried the IUD was moving. She has been able to feel the IUD strings similar to the past. Denies pain with intercourse. I have reviewed and updated the following: allergies, current medications, social history, and problem list REVIEW OF SYSTEMS A comprehensive review of systems was negative except for: Genitourinary: menstrual bleeding OBJECTIVE VITAL SIGNS Blood Pressure: (103)/(66) 103/66 Height: [171.5 cm] 171.5 cm Weight: [66.4 kg] 66.4 kg BSA (Calculated - sq m): [1.78 sq meters] 1.78 sq meters BMI (Calculated): [22.6 kg/m??] 22.6 kg/m?? Pulse Rate: [82] 82 PHYSICAL EXAM Constitutional General: She is not in acute distress. Appearance: Normal appearance. She is well-groomed. She is not ill-appearing. Pelvic exam was performed with patient supine. Clitoris: Clitoris is normal. Perineum: The perineum is normal. Vagina: The vagina is normal. Adnexa: Right adnexa shows no mass, no tenderness and no fullness. Left adnexa shows no mass, no tenderness and no fullness. Cervix: The cervix is normal. Cervix exhibits visible IUD strings. Cervix does not exhibit motion tenderness. Prolapse: well-supported anterior, apical, posterior, vaginal kennedy. Uterus: The uterus is normal. The uterus is smooth. Lymphadenopathy System normal. Neurological Mental Status: She is alert. Psychiatric Mood and Affect: Mood normal. Speech: Speech normal. Behavior: Behavior normal. Behavior is cooperative. Cognition and Memory: Cognition normal. Judgment: Judgment normal. Violin Mechanic for pelvic exam or qualifying procedure: Radha Chirinos [facility] US Pelvis Transvaginal and Transabdominal Narrative: EXAM: US PELVIS TRANSVAGINAL AND TRANSABDOMINAL COMPARISON: CT abdomen pelvis 07/30/2022. TECHNIQUE: Transabdominal and transvaginal. Transvaginal exam performed to better visualize the uterus and/or adnexal regions. 3-D postprocessing imaging on a nonindependent workstation was performedto better assess IUD positioning. FINDINGS: Uterus: 3.1 [...] 2.6 x 1.6 cm. Ovarian volume: 6 ml. Left ovary was normal containing tiny and small follicles and having normal blood flow. Intraperitoneal Fluid: None. Impression: 1. IUD in satisfactory position in the endometrial cavity. 2. Uterus, endometrium, and ovaries normal. 3. No free fluid in the pelvis. ASSESSMENT / PLAN #1 Surveillance Intrauterine Device Reassuring string check exam with normal pelvic ultrasound in July. Given her history of menorrhagia, it is not unusual to have some menstrual bleeding. Reassurance provided. Will monitor for now, contacting office with further concerns. Amy Vernon APRN, C.N.P., M.S.N. 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 [address] [place] [phone] PCP - General 09/27/23 documented as of this encounter
--- OUTSIDE RECORDS SUMMARY | 2023-10-03 21:23 | XMS_ITS | Encounter Summary ---
Author Organization [facility] Address [address] [place] [address] Care Team Providers Care Engine Repairer Name Role Phone Jyoti Vann APRN, C.N.P. Primary Care Provi teresa Unavailable Reason for Visit * Outpatient (Routine) - Closed Specialty Diagnoses / Procedures Referred By Safia t Referred To Contact Hematology Diagnoses Lymphadenopathy Eosinophilia Unspecified Marta Meza M.D. [address] [place] [phone] [facility] Referral ID Status Reason Start Date Expiration Date Visits Re quested Visits Authorized [id number] Closed 08/12/2023 02/10/2025 1 1 Encounter Details Date Type Department Care Team ([facility] st Contact Info) Description 08/27/2023 1:00 PM CDT Clinical Support - [facility] Division of Hematology in [place], [place] [address] [place] [phone] Marta Meza M.D. [address] [place] [phone] Carmelina Paagn Lymphadenopathy; Eosinophilia Unspecified Social History Tobacco Use Types Packs/Day Years [...] How often do you attend chur or yazdanism services? Never 08/29/2022 Do you belong to any clubs o r organizations such as jew groups, unions, fraternal or athletic groups, or [...] Answer Date Recorded PHQ-2 Score 4 05/16/2023 [facility] - Occupational Stress Questionnaire Answer [...] your living situation today? 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 PCP - General Family Medicine 02/01/23 09/26/23 documented as of this encounter
--- OUTSIDE RECORDS SUMMARY | 2023-10-03 21:23 | XMS_ITS | Referral Summary ---
Author Organization [facility] Address [address] [place] [address] Care Team Providers Care Vending Machine Servicer Name Role Phone Jose Martin Ramirez M.D. Primary Care Provider [phone] Source Comments Patient records contain information from all sites at [facility]. For routine questions regarding patient records, call [phone] during business hours, M-F 8:00 AM - 5:00 PM Central Time. Record requests for emergency care only can be directed to [phone] at any time.[facility] Encounters Date Type Department Care Team Description 10/03/2023 2:00 PM CDT Office Visit Department of Obstetrics and Gynecology in [place], [place] [address] [place] [address] Amy Vernon, NATHALY, C.N.P., M.S.N. Surveillance Intrauterine Device (Primary Dx) Discharge Disposition: Home or Self Care 09/13/2023 10:00 AM CDT Virtual Visit Division of Hematology in [place], [place] [address] [place] [address] Tony Larson M.D. Eosinophilia Secondary (Primary Dx); Lymphadenopathy 08/27/2023 2:29 PM CDT - 08/27/2023 11:59 PM CDT Hospital Encounter Department of Laboratory Medicine and Pathology, [facility], in [place], [place] [address] [place] [address] Tony Larson M.D. Eosinophilia Secondary Discharge Disposition: Home or Self Care 08/27/2023 2:29 PM CDT - 08/27/2023 11:59 PM CDT Hospital Encounter Department of Laboratory Medicine and Pathology, [place], [place] [address] [place] [phone] Tony Larson M.D. Eosinophilia Secondary Discharge Disposition: Home or Self Care 08/27/2023 1:30 PM CDT Comprehensive Visit Division of Hematology in [place], [place] [address] [place] [phone] Tony Larson M.D. Eosinophilia Secondary (Primary Dx) 08/27/2023 1:00 PM CDT Clinical Support - [facility] Division of Hematology in [place], [place] [address] [place] [phone] Marta Meza M.D. Rud, Danielle L Lymphadenopathy; Eosinophilia Unspecified 08/12/2023 12:15 PM CDT - 08/12/2023 11:59 PM CDT Hospital Encounter Department of Laboratory Medicine and Pathology, [facility] in [place], [place] [address] [place] [address] Marta Meza M.D. Dermatitis Atopic; Lymphadenopathy; Eosinophilia Unspecified Discharge Disposition: Home or Self Care 08/12/2023 11:40 AM CDT Office Visit Department of Dermatology in [place], [place] [address] [place] [phone] Marta Meza M.D. Dermatitis Atopic (Primary Dx); Lymphadenopathy; Eosinophilia Unspecified Discharge Disposition: Home or Self Care 08/09/2023 9:15 AM CDT Clinical Communication Virtual Review in [place], [place] [address] [place] [address] 07/05/2023 3:57 PM HONEYCOMB DECAPPER - 07/05/2023 11:59 PM HONEYCOMB DECAPPER Hospital Encounter Department of Radiology in [place], [place] [address] [place] [phone] Amy Vernon, AERIAL SURVEY TECHNICIAN, C.N.P., M.S.N. 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 Anemia Iron Deficiency 07/02/2016 Resolved Problems Problem Noted Date Diagnosed Date Resolved Date Psoriasis 04/05/2008 07/26/2017 Immunizations Name Administration Dates Next Due 9vHPV [...] quad (FLUZONE/FLUARIX) (6 months and older)(PF) 01/28/2022,01/13/2021,02/26/2020 Social History Tobacco Use Types Packs/Day Years Used Date Smoking Tobacco: Some Days Cigarettes Passive Smoke Exposure: Past Smokeless Tobacco: Never Tobacco Cessation:Ready to Q uit: Not Asked Comments:Vape Alcohol Use Standard Drinks/Week Comments Not Currently 0 (1 standard drink = 0.6 oz pure alcohol) Have alcohol a couple times a month [facility] Utilities Answer Date Recorded In the past 12 months has [employer], or water [employer] threatened to shut off services in your [...] often do you attend chur ch or adventist services? Never 08/29/2022 Do you belong to [...] Answer Date Recorded PHQ-2 Score 4 05/16/2023 [facility] [place] of Occupat ional Health - Occupational Stress [...] your living situation today? I have a [facility] place to live 09/10/2023 Education Answer [...] CDT Oxygen Saturation 96% 05/17/2023 1:18 PM HONEYCOMB DECAPPER Inhaled Oxygen Concentration - - Weight 66.4 kg (146 lb 6.4 oz) 10/03/2023 1:55 P M CDT Height 171.5 cm (5' 7.52) 10/03/2023 1:55 PM CD T Body Mass Index 22.58 10/03/2023 1:55 PM CDT Plan of Treatment Not on file Medical Devices Implanted Type Area Industrial Roof Plumber Device Identifier Shelf Expiration Date Model / Serial / Lot [id number]- [id number] Implanted:Qty : 1 on 05/21/2023 by Amy Vernon, NATHALY, C.N.P., M.S.N. Intrauterine Device Uterus 05/21/2031 / / [id number] Procedures Procedure Name Priority Date/Time Associated Diagnosis [...] inpatients and all outpatients) 07/05/2023 4:49 PM HONEYCOMB DECAPPER Surveillance Intrauterine Device CHLAMYDIA/GONORRHOEA E AMPLIFIED RNA Routine 05/21/2023 4:05 PM HONEYCOMB DECAPPER Insertion Intrauterine Device Screening For Venereal Disease THINPREP SCREEN HPV REFLEX Routine 05/21/2023 4:05 PM HONEYCOMB DECAPPER Pap Smear Examination from Last 3 Months or Most Recently Relevant to Health Maintenance Results * Chronic Eosinophilia, Diagnostic FISH (08/27/2023 2:48 PM CDT) Pathologist [facility] Result Summary Normal 08/29/2023 9:52 AM CDT [...] Method: Manual Probe vendors include: LDT = [facility] Developed AM = [employer] ([place], [place]) 08/29/2023 9:52 AM CDT DTL Disclaimer Applicable to Analyte Specific Reagent (ASR) and Laboratory Developed Tests (LDT). This test was developed and its performance characteristics determined by [facility] in a manner consistent with CLIA [...] CDT Tony Larson M.D. LAB GENETIC TESTING [facility] [address] [place] [address], [facility] DTL [address] [place] [address] * Leukemia/Lymphoma Immunophenotyping by Flow Cytometry, Blood [...] 1:40 PM CDT DTL Microscopic Description A Zqehqf-Mopvbi-dxwsff d slide prepared from the flow cytometry specimen is examined. ??No morphologic features of acute leukemia or lymphoma are identified. 08/28/2023 1:40 PM CDT DTL Comment: ----ADDITIONAL INFORMATION---- This test was developed using an analyte specific reagent. Its performance characteristics were determined by [facility] in a manner consistent with CLIA requirements. This test has not been cleared or approved by the U.S. Food and Drug Administration. Blood (Blood, Venous) 08/27/2023 2:48 PM CDT 08/27/2023 3:32 PM CDT Tony Larson M.D. LAB GENETIC TESTING [facility] [address] [place] [address], [facility] DTL [address] [place] [address] * JAK2 V617F Mutation Detection, Blood (08/27/2023 2:48 PM CDT) JAK2 Result see interpretation 08/29 12:32 PM CDT DTL Interpretation Peripheral blood, JAK2 V617F mutation analysis: Negative for JAK2 V617F. A negative [id number] test result does not exclude the possibility [...] assay has been determined at 0.06% (see [facility] Laboratories Interpretive Handbook for method details). This test was developed and its performance characteristics determined by [facility] in a manner consistent with CLIA requirements. This test has not been cleared or approved by the U.S. Food and Drug Administration. Blood (Blood, Venous) 08/27/2023 2:48 PM CDT 08/27/2023 4:02 PM CDT Tony Larson M.D. LAB GENETIC TESTING Performing Organization Address [facility] Co de Phone Number [facility] [address] [place] [address], [facility] DTL [address] [facility] [address] [place] [address] * T-Cell Receptor Gene Rearrangement, PCR (08/27/2023 [...] reagent. Its performance characteristics were determined by [facility] in a manner consistent with CLIA requirements. This test has not been cleared or approved by the U.S. Food and Drug Administration. Blood (Blood, Venous) 08/27/2023 2:48 PM CDT 08/27/2023 4:02 PM CDT Tony Larson M.D. LAB BLOOD ADD-ON Performing Organization Address [facility] Co de Phone Number [facility] [address] [place] [address], [facility] DT 200 [facility] [address] [place] [address] * Tryptase (08/27/2023 2:48 PM CDT) Tryptase, S 5.9 <11.5 ng/mL 08/28/2023 3:08 PM CDT [facility] Blood (Blood, Venous) 08/27/2023 2:48 PM CDT 08/27/2023 6:42 PM CDT Tony Larson M.D. LAB BLOOD ADD-ON [facility] [address] [place] [address] [facility] [address] [place] [address] * (ABNORMAL) SPSMA Result (08/12/2023 12:39 PM CDT) Pathologist [facility] Neutrophilic Segs and Bands 64 50 - [...] Reviewed by: Marito 08/12/2023 4:03 PM CDT DHPM Blood (Blood, Venous) 08/12/2023 12:39 PM CDT 08/12/2023 1:05 PM CDT Marta Meza M.D. LAB BLOOD ADD-ON Performing Organization Address City/[facility]/ZIP Co de Phone Number [facility] [address] [place] [address], [facility] [address] [place] [address] * (ABNORMAL) Sedimentation Rate (08/12/2023 12:39 PM CDT) Pathologist [facility] Sedimentation Rate, B 25(H) 2 - 20 mm/h 08/12/2023 3:01 PM CDT DTL Blood (Blood, Venous) 08/12/2023 12:39 PM CDT 08/12/2023 1:05 PM CDT Marta Meza M.D. LAB BLOOD ADD-ON Performing Organization Address [facility]/ZIP Co de Phone Number [facility] [address] [place] [address], [facility] [address] [place] [address] * (ABNORMAL) CBC with Differential, Blood (08/12/2023 12:39 PM CDT) [facility] Hemoglobin 12.2 11.6 - 15.0 g/dL 08/12/2023 [...] CDT Marta Meza M.D. LAB BLOOD ADD-ON [address] [place] [address] * (ABNORMAL) CRP (C-Reactive Protein) (08/12/2023 12:39 PM CDT) [facility] C-Reactive Protein (CRP), S 5.0(H) <5.0 mg/L 08/12/2023 3:01 PM CDT DTL Blood (Blood, Venous) 08/12/2023 12:39 PM CDT 08/12/2023 1:30 PM CDT Marta Meza [place] [address] * LD (Lactate Dehydrogenase) (08/12/2023 12:39 PM CDT) Pathologist [facility] Lactate Dehydrogenase (LD), S 190 122 - 222 U/L 08/12/2023 3:01 PM CDT DTL Blood (Blood, Venous) 08/12/2023 12:39 PM CDT 08/12/2023 1:30 PM CDT Marta Meza M.D. LAB BLOOD NON ADD-O N [facility] [address] [place] [address], [facility] DTL [facility] [address] [place] [address] * US Pelvis Transvaginal and Transabdominal (07/05/2023 4:49 PM HONEYCOMB DECAPPER) Anatomical Region Laterality Modality Pelvis, Ultrasound RST LOS, Ultrasound ARZ LOS, Ultrasound FLA LOS N/A Ultrasound Impressions 07/05/2023 4:54 PM HONEYCOMB DECAPPER 1. IUD in satisfactory position in the endometrial cavity. 2. Uterus, endometrium, and ovaries normal. 3. No free fluid in the pelvis. Narrative 07/05/2023 4:54 PM HONEYCOMB DECAPPER EXAM: US PELVIS TRANSVAGINAL AND TRANSABDOMINAL COMPARISON: [...] blood flow. Intraperitoneal Fluid: None. Procedure Note Bullis, Elias R, M.D. - 07/05/2023 EXAM: US PELVIS TRANSVAGINAL [...] 3. No free fluid in the pelvis. Leland Gates APRNNJoselito, M.S.N. IMG US PROCEDURES * ThinPrep Screen HPV Reflex (05/21/2023 4:05 PM HONEYCOMB DECAPPER) 05/23/2023 10:34 AM [facility] Report electronically signed by Jagdeep Garland MD I verify that I have examined all relevant slides/materials for the specimen(s) and rendered or confirmed the diagnosis. 05/23/2023 10:34 AM [facility] Gross Description Received specimen in a ThinPrep vial. 05/23/2023 10:34 AM [facility] Pap Test Source Cervical/Endocervi robles 05/23/2023 10:34 AM [facility] Hormone Therapy/Contracep tives None/Not known 05/23/2023 10:34 AM [facility] Interpretation Cervical/Endocervi robles ??(ThinPrep): Satisfactory for Evaluation Negative for Intraepithelial Lesion or Malignancy 05/23/2023 10:34 AM HONEYCOMB DECAPPER HKCY Thin Prep Vial (Cervix/Endocerv ix) 05/21/2023 4:05 PM HONEYCOMB DECAPPER 05/22/2023 7:31 AM HONEYCOMB DECAPPER Amy Vernon APRN, C.N.P., M.S.N. LAB PAP PATHDX ORDERABLES [facility] CYTOLOGY [address] [place] [address], [place] [facility] [address] [facility] [address] [place] [address] * Chlamydia / Gonorrhoeae Amplified RNA (05/21/2023 4:05 PM HONEYCOMB DECAPPER) Source Thin Prep Vial, Cervix/Endoc ervix 05/22/2023 2:38 PM HONEYCOMB DECAPPER MKTO Chlamydia trachomatis amplified RNA Negative Negative 05/22/2023 2:38 PM HONEYCOMB DECAPPER MKTO Source Thin Prep Vial, Cervix/Endoc ervix 05/22/2023 2:38 PM HONEYCOMB DECAPPER MKTO Neisseria gonorrhoeae amplified RNA Negative Negative 05/22/2023 2:38 PM HONEYCOMB DECAPPER MKTO Thin Prep Vial (Cervix/Endocerv ix) 05/21/2023 4:05 PM HONEYCOMB DECAPPER 05/22/2023 10:27 AM HONEYCOMB DECAPPER Amy Vernon APRN, C.N.P., M.S.N. LAB MICROBIOLOGY - GENERAL ORDERABLES [facility] LAB [address] [place] [address], [place] [facility]TO [address] [facility] [address] [place] [address] from Last 3 Months or Most Recently Relevant to Health Maintenance Care Teams Vending Machine Servicer Relationship Specialty Start Date End Date Jose Martin Ramirez M.D. [address] [place] [phone] PCP - General 09/27/23
--- OUTSIDE RECORDS SUMMARY | 2023-10-03 21:23 | XMS_ITS | Encounter Summary ---
Author Organization [facility] Address [address] [place] [address] Care Team Providers Care Inspector Of Weights And Measures Name Role Phone Jyoti Vann APRN, C.N.P. Primary Care Provi teresa Unavailable Encounter Details Date Type Department Care Team (Latest Contact Info) Description 08/12/2023 12:15 PM CDT - 08/12/2023 11:59 PM CDT Hospital Encounter Department of Laboratory Medicine and Pathology, [place], [place] [address] [place] [address] Marta Meza M.D. [address] [place] [phone] Dermatitis Atopic; Lymphadenopathy; Eosinophilia Unspecified Discharge Disposition: [...] often do you attend chur ch or church services? Never 08/29/2022 Do you belong to any clubs o r organizations such as scientology groups, unions, fraternal or athletic groups, or [...] Answer Date Recorded PHQ-2 Score 4 05/16/2023 [facility] of Occupat ional Health - Occupational Stress [...] living situation today? I have a [facility] place to live 01/19/2023 Education Answer [...] skin. dupilumab (Dupixent Pen) 300 mg/2 mL injectionIndications:Teresa matitis Atopic Inject 2 mL (300 mg [...] Procedure Name Priority Date/Time Associated Diagnosis Comments SPSMA RESULT Routine 08/12/2023 12:39 PM CDT Lymphadenopathy SEDIMENTATION RATE, B Routine 08/12/2023 12:39 PM CDT Lymphadenopathy Eosinophilia Unspecified CBC WITH DIFFERENTIAL, B Routine 08/12/2023 12:39 PM CDT Dermatitis Atopic Lymphadenopathy C-REACTIVE PROTEIN (CRP), S/P Routine 08/12/2023 12:39 PM CDT Lymphadenopathy LACTATE DEHYDROGENASE (LD), S Routine 08/12/2023 12:39 PM CDT Lymphadenopathy Eosinophilia Unspecified documented in this encounter Results * LD (Lactate Dehydrogenase) (08/12/2023 12:39 PM CDT) Lactate Dehydrogenase (LD), S 190 122 - 222 U/L 08/12/2023 3:01 PM CDT DTL Blood (Blood, Venous) 08/12/2023 12:39 PM CDT 08/12/2023 1:30 PM CDT Marta Meza M.D. LAB BLOOD NON ADD-O N Performing Organization Address [facility]/ZIP Co de Phone Number [facility] [address] [place] [address] * (ABNORMAL) Sedimentation Rate (08/12/2023 12:39 PM CDT) Pathologist [facility] Sedimentation Rate, B 25(H) 2 - 20 mm/h 08/12/2023 3:01 PM CDT DTL Blood (Blood, Venous) 08/12/2023 12:39 PM CDT 08/12/2023 1:05 PM CDT Marta Meza M.D. LAB BLOOD ADD-ON Performing Organization Address City/[facility]/ZIP Co de Phone Number [facility] [address] [place] [address] * (ABNORMAL) CRP (C-Reactive Protein) (08/12/2023 12:39 PM CDT) C-Reactive Protein (CRP), S 5.0(H) <5.0 mg/L 08/12/2023 3:01 PM CDT DTL Blood (Blood, Venous) 08/12/2023 12:39 PM CDT 08/12/2023 1:30 PM CDT Marta Meza M.D. LAB BLOOD ADD-ON Performing Organization Address City/[facility]/ZIP Co de Phone Number [facility] [address] [place] [address], [facility] D[facility] [address] [place] [address] * (ABNORMAL) SPSMA Result (08/12/2023 12:39 PM [...] M.D. LAB BLOOD ADD-ON Performing Organization Address City/[facility]/ZIP Co de Phone Number [facility] [address] [place] [address], [facility] DHPM [facility] [address] [place] [address] * (ABNORMAL) CBC with Differential, Blood (08/12/2023 [...] CDT Marta Meza M.D. LAB BLOOD ADD-ON [facility] [address] [place] [address], [facility] [address] [place] [address] [facility] [place] [facility] [place] [address] [place] [address] documented in this encounter Visit Diagnoses Diagnosis Dermatitis Atopic Lymphadenopathy Eosinophilia Unspecified documented in this encounter Additional Health Concerns Assessment Noted Time PHQ-9 Depression Total Score: 8 05/16/19 24 6:00 PM TRANSPORTATION MAINTENANCE SUPERVISOR documented as of this encounter Care Teams Inspector Of Weights And Measures Relationship Specialty Start Date End Date Jyoti Vann APRN, C.N.P. PCP - General Family Medicine 02/01/23 09/26/23 documented as of this encounter
--- OUTSIDE RECORDS SUMMARY | 2023-10-03 21:23 | XMS_ITS | Encounter Summary ---
Author Organization [facility] Address [address] [place] [address] Care Team Providers Care Bander Name Role Phone Jyoti Vann APRN C.N.P. Primary Care Provi jony Unavailable Reason for Referral * Outpatient (Routine) - Closed Specialty Diagnoses / Procedures Referred By Contac t Referred To Contact Diagnoses Surveillance Intrauterine Device Procedures US Pelvis Transvaginal and Transabdominal Amy Vernon APRN, C.N.P., M.S.N. [address] [place] [address] [facility] Referral ID Status Reason Start Date Expiration Date Visits Re quested Visits Authorized [id number] Closed 07/02/2023 07/01/2024 1 1 TAL PRODUCT MANAGER Reason for Visit * Outpatient (Routine) - Closed Specialty Diagnoses / Procedures Referred By Contac t Referred To Contact Diagnoses Surveillance Intrauterine Device Procedures US Pelvis Transvaginal and Transabdominal Amy Vernon APRN C.N.P., M.S.N. [address] [place] [address] [facility] Region Referral ID Status Reason Start Date Expiration Date Visits Re quested Visits Authorized [id number] Closed 07/02/2023 07/01/2024 1 1 Encounter Details Date Type Department Care Team (Latest Contact Info) Description 07/05/2023 3:57 PM DIGITAL PRODUCT MANAGER - 07/05/2023 11:59 PM DIGITAL PRODUCT MANAGER Hospital Encounter Department of Radiology in [place], [place] [address] [place] [phone] Amy Vernon, NATHALY, C.N.P., M.S.N. [address] [place] [phone] Surveillance Intrauterine Device Discharge Disposition: Home or Self Care Social [...] often do you attend chur ch or restorationism services? Never 08/29/2022 Do you belong to any clubs o r organizations such as amish groups, unions, fraternal or athletic groups, or [...] Answer Date Recorded PHQ-2 Score 4 05/16/2023 [facility] - Occupational Stress Questionnaire Answer Date Recorded [...] your living situation today? I have a [facility] place to live 01/19/2023 Education Answer [...] Start Date End Date albuterol 90 mcg/actuation inhalerIndications:Asth ma Mild Intermittent (HCC) Inhale 2 puffs every [...] a day as needed. Apply to skin. ferrous sulfate 325 mg (65 mg iron) tablet Take 1 tablet by mouth daily. 07/02/2016 fexofenadine (JERI) 180 mg tablet 180 mg daily. 01/31/2022 fluticasone propionate (FLONASE) 50 mcg/actuation nasal sprayIndications:Rhinit is Allergic Administer 2 sprays into each nostril [...] topically as needed. tacrolimus (PROTOPIC) 0.1 % ointmentIndications:Jony matitis Atopic Apply 1 Application topically 2 (two) times a day. Apply to face and neck. 100 g 3 06/06/2023 dupilumab (Dupixent Pen) 300 mg/2 mL injectionIndications:De rmatitis Atopic Inject 2 mL (300 mg total) under the skin every 14 (fourteen) days. Begin after loading dose complete 12 mL 3 09/05/2022 08/12/2023 documented as of this encounter Plan of Treatment Not on file documented as of this encounter Procedures Procedure Name Priority Date/Time Associated Diagnosis Comments US PELVIS TRANSVAGINAL AND TRANSABDOMINAL RAD - Routine (most inpatients and all outpatients) 07/05/2023 4:49 PM DIGITAL PRODUCT MANAGER Surveillance Intrauterine Device documented in this encounter Results * US Pelvis Transvaginal and Transabdominal (07/05/2023 4:49 PM DIGITAL PRODUCT MANAGER) Anatomical Region Laterality Modality Pelvis, Ultrasound RST LOS, Ultrasound ARZ LOS, Ultrasound FLA LOS N/A Ultrasound Impressions 07/05/2023 4:54 PM DIGITAL PRODUCT MANAGER 1. IUD in satisfactory position in the endometrial cavity. 2. Uterus, endometrium, and ovaries normal. 3. No free fluid in the pelvis. Narrative 07/05/2023 4:54 PM DIGITAL PRODUCT MANAGER EXAM: US PELVIS TRANSVAGINAL AND TRANSABDOMINAL [...] free fluid in the pelvis. Amy Vernon APRN C.N.P., M.S.N. IMG US PROCEDURES documented in this encounter Visit Diagnoses Diagnosis Surveillance Intrauterine Device documented in this encounter Additional Health Concerns Assessment Noted Time PHQ-9 Depression Total Score: 8 05/16/19 24 6:00 PM DIGITAL PRODUCT MANAGER documented as of this encounter Care Teams Bander Relationship Specialty Start Date End Date Jyoti Vann APRN, C.N.P. PCP - General Family Medicine 02/01/23 09/26/23 documented as of this encounter
--- NOTE | 2023-10-03 23:04 | ED_ITS ---
HPI - Eye Problem General Date Seen: 10/03/23 Chief complaint: Eye Problems Stated complaint: blurry vision, swollen eyes, discharge Time Seen by Provider: 10/03/23 20:40 Source: patient Mode of arrival: ambulatory Limitations: no limitations History of Present Illness HPI Narrative: Patient is a 23-year-old female presenting to the emergency department for bilateral eye pain. The symptoms have been going on for a couple months and have been getting worse. She has tried multiple eyedrops with most recently being tobramycin eyedrops. She does not were contacts. She thinks her vision is getting blurry and the pain is getting worse. Denies ever having symptoms before. Has not been able to get an with an forming machine operator. One week ago she was told she has conjunctivitis. Denies fevers, chills, headache. Related Data Home Medications ?Medication ?Instructions ?Recorded ?Confirmed fexofenadine 180 mg tablet 180 mg PO Q24H 01/31/22 09/03/23 (Christine Allergy) clobetasol 0.05 % topical ointment 1 applic topical BID PRN 02/26/22 10/03/23 ergocalciferol (vitamin D2) 10 mcg 400 unit PO DAILY 02/26/22 09/03/23 (400 unit) tablet dupilumab 300 mg/2 mL subcutaneous mg subcut 10/08/22 09/03/23 pen injector (Dupixent) beclomethasone dipropionate 40 inhalation 07/08/23 09/03/23 mcg/actuation HFA breath activated aerosol (Qvar RediHaler) tacrolimus 0.1 % topical ointment topical 07/08/23 09/03/23 Previous Rx's ?Medication ?Instructions ?Recorded albuterol sulfate 90 mcg/actuation 2 puff inhalation Q6H PRN 02/26/22 aerosol inhaler shortness of breath or wheezing #8.5 grams tobramycin 0.3 % eye drops 1 drp ophthalmic (eye) QID #5 mL 09/26/23 Allergies Allergy/AdvReac Type Severity Reaction Status Date / Time potato Allergy Mild Rash Verified 10/03/23 20:47 adhesive Allergy Unknown Rash Verified 10/03/23 20:47 cyclobenzaprine Allergy Unknown stomach Verified 10/03/23 20:47 pain cat dander Allergy Verified 05/30/24 20:47 Review of Systems Status of ROS: Reports: 6 or more systems reviewed and unremarkable except as noted in History and below [facility] Medical History Skin infection ?L08.9 - Local infection of the skin and subcutaneous tissue, unspecified (ICD-10) Sinusitis ?J32.9 - Chronic sinusitis, unspecified (ICD-10) Psoriasis ?L40.9 - Psoriasis, unspecified (ICD-10) Anemia, iron deficiency ?D50.9 - Iron deficiency anemia, unspecified (ICD-10) Dermatitis, atopic ?L20.9 - Atopic dermatitis, unspecified (ICD-10) Scoliosis ?M41.9 - Scoliosis, unspecified (ICD-10) 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 (ICD-10) Surgical History H/O lymph node biopsy ?Z98.890 - Other specified postprocedural states (ICD-10) History of oral surgery ?Z98.890 - Other specified postprocedural states (ICD-10) No significant past surgical history Social History Smoking Status: Never smoker Do you use any of these nicotine containing products: None Second hand tobacco smoke exposure: No How often do you have a drink containing alcohol: 2-4 times a month How often do you have six or more drinks on one occasion: Never AUDIT-C Alcohol total score: 2 Non-prescribed substance use: denies use Caffeine: Yes (DAILY) Are you using contraception or practicing any form of control: No Exam Narrative: Exam Narrative: Const: Well-nourished, Well-developed, in mild distress Eyes: PERRL, mild bilateral conjunctival injection, and symmetrical lids, no pain with extraocular movement HENT: Atraumatic external nose and ears. Moist mucous membranes. Neck: Symmetric, trachea midline, No thyromegaly. GI: Nontender/Nondistended, No rebound or guarding. MSK:Extremities w/o deformity, Normal Active ROM Skin: Warm, Dry. No rashes or lesions. Neuro: Normal Muscle tone, No focal neurological deficits. Psych: Awake, Alert, & Oriented x3. Appropriate mood and affect. Const: Vital Signs, click to edit/add: Vital Signs - 24 hr 10/03/23 20:45 Temperature 98.0 F Pulse Rate [Right Pulse Oximeter] 89 Respiratory Rate 20 Blood Pressure [Ri ght Upper Arm] 145/84 H Pulse Oximetry 99 Oxygen Delivery Me thod Room Air Course Vital Signs Vital signs: Initial Vital Signs Temperature 98.0 F 10/03/23 20:45 Temperature Source Temporal Artery Scan 10/03/23 20:45 Pulse Rate 89 10/03/23 20:45 Respiratory Rate 20 10/03/23 20:45 Blood Pressure 145/84 H 10/03/23 20:45 Blood Pressure Mean 104 10/03/23 20:45 Blood Pressure Position Sitting 10/03/23 20:45 Pulse Oximetry 99 10/03/23 20:45 Oxygen Delivery Method Room Air 10/03/23 20:45 Vital Signs Temperature 98.0 F 10/03/23 20:45 Pulse Rate 89 10/03/23 20:45 Respiratory Rate 20 10/03/23 20:45 Blood Pressure 145/84 H 10/03/23 20:45 Pulse Oximetry 99 10/03/23 20:45 Oxygen Delivery Method Room Air 10/03/23 20:45 Temperature 98.0 F 10/03/23 20:45 Pulse Rate 89 10/03/23 20:45 Respiratory Rate 20 10/03/23 20:45 Blood Pressure 145/84 H 10/03/23 20:45 Pulse Oximetry 99 10/03/23 20:45 Oxygen Delivery Method Room Air 10/03/23 20:45 MDM - Eye Problem MDM Narrative Medical decision making narrative: Patient is a 19 for female presenting for concern of eye pain. Pain is bilateral. She does have some mild conjunctivitis. We did do an eye exam showing both eyes with a vision of 20/25. I also did a fluorescein exam showing no signs of uptake. Do not see signs of orbital foreign bodies. Since this is bilateral episcleritis, anterior uveitis seems very unlikely. I did attempt to get an eye pressure with the Toprol pain but it was not functioning appropriately so I was unable to do this. Considering otherwise normal vision and minimal redness of her eyes IV it comfortable discharging home without the eye pressures. Patient will be discharged at this time and will was given information for follow-up with the Eye Clinic. She is agreeable to this plan Discharge Plan Discharge Clinical Impression: Conjunctivitis Qualifiers: Conjunctivitis type: unspecified Laterality: bilateral Qualified Code(s): H10.9 - Unspecified conjunctivitis Patient Disposition: Home, Self-Care Condition: Stable Instructions: Conjunctivitis (ED) Additional Instructions: Follow Up with [facility] [phone] Prescriptions: No Action ergocalciferol (vitamin D2) 10 mcg (400 unit) tablet 400 unit PO DAILY clobetasol 0.05 % ointment 1 applic topical BID PRN Rx Instructions: APPLY SPARINGLY TO AFFECTED AREA albuterol sulfate 90 mcg/actuation HFA aerosol inhaler 2 puff inhalation Q6H PRN (Reason: shortness of breath or wheezing) Qty: 8.5 3RF tobramycin 0.3 % drops 1 drp ophthalmic (eye) QID Qty: 5 0RF fexofenadine [Christine Allergy] 180 mg tablet 180 mg PO Q24H Dupixent Pen 300 mg/2 mL pen injector subcut tacrolimus 0.1 % ointment topical Qvar RediHaler 40 mcg/actuation HFA aerosol breath activated inhalation Follow Up/Referrals: Provider,Not a Local [Primary Care Provider] - Stand Alone Forms: Klique Info Instructions
== END 2023-10-03 22:27 | disposition home or self-care (01) ==
PROVIDERS: Emergency Provider Student in an Organized Health Care Education/Training Program
DX: H10.9 Unspecified conjunctivitis (principal)
CPT/HCPCS: 99282; 99283

== ENCOUNTER 2024-03-11 22:37 | Emergency (ER) | payer OTHER, SELFPAY ==
[2024-03-11 22:47] VITALS: BP 143/89; PULSE 78; RESP 18; TEMP 36.9; O2SAT 99; BMI 22.7
--- NOTE | 2024-03-11 23:02 | CRLHL7_ITS ---
For Patients: As a result of the Century Cures Act, medical imaging exams and procedure reports are released immediately into your electronic medical record. You may view this report before your referring provider. If you have questions, please contact your health care provider. Indication: Slammed left 5th digit in door. Technique: Left small finger 3 views. Comparison: None. Findings: Bones: Alignment is normal. No fractures or bone lesions. Joint spaces: Unremarkable. Soft tissues: Unremarkable. Impression: No evidence of an acute bony abnormality. Dictated by Chester Daigle MD @ 03/11/2024 11:28:59 PM (Electronically Signed)
--- OUTSIDE RECORDS SUMMARY | 2024-03-11 23:16 | XMS_ITS | Clinical Summary ---
Author Organization [facility] Address [address], [place] [address] Care Team Providers Care Tear Down Worker Name Role Phone No Primary/Referring, Phy Primary Care Provider Unavailable Source Comments You are receiving this document as you are listed as the primary care provider,follow-up provider, or the patient has been referred to you for consultation.This is in compliance with the Medicare and[facility] EHR Incentive Program,which states Providers who transition their patient to another setting of careor provider of care or refers their patient to another provider of care shouldprovide summary care record for each transition of care or referral. [employer] Allergies No known active allergies Medications Medication [...] Comments Blood Pressure 116/62 04/23/2023 5:15 AM HONE OPERATOR Pulse 101 04/23/2023 5:15 AM HONE OPERATOR Temperature 37 ??C (98.6 ??F) 04/23/2023 12:15 AM HONE OPERATOR Respiratory Rate 16 04/23/2023 5:15 AM HONE OPERATOR Oxygen Saturation 98% 04/23/2023 5:15 AM HONE OPERATOR Inhaled Oxygen Concentration - - Weight 46 [...] 01/19/2004, 09/19/2000, Additional history exists COVID-19 Vaccine ( season) 2024 08/31/2020, 08/03/2020 Influenza (#1) 2024 01/28/2022, 01/04, 02/26/2020, Additional history exists Zoster/Shingles (1 of [...] on patient's age to complete this topic RSV Aged Out No longer eligi ble based on patient's age to complete this topic Care Teams Tear Down Worker Relationship Specialty Start Date End Date No Primary/Referring, Phongy PCP - General 04/22/23
--- OUTSIDE RECORDS SUMMARY | 2024-03-11 23:16 | XMS_ITS | Clinical Summary ---
Author Organization [facility] Address [address] [place] [address] Care Team Providers Care Business Systems Architect Name Role Phone Jose Martin Ramirez M.D. Primary Care Provider [phone] Source Comments Patient records contain information from all sites at [facility]. For routine questions regarding patient records, call [phone] during business hours, M-F 8:00 AM - 5:00 PM Central Time. Record requests for emergency care only can be directed to [phone] at any time.[facility] Allergies Active Allergy Reactions Criticality Noted Date Comments Adhesive Rash 04/11/2022 Adhesive Tape-Silicones Rash 07/26/2017 Animal Dander Rash 03/10/2018 Dogs ok cats not Cyclobenzaprine GI intolerance 04/11/2022 Latex Rash 07/26/2017 Potato Itching,Rash Low 07/26/2017 Only Raw Potatoes Medications * This document contains information received from the source organization and may not represent a complete record from that organization. ferrous sulfate 325 mg (65 mg iron) tablet Take 1 tablet by mouth daily. 7 Active ibuprofen (for_ADVIL,MOTRI N) 200 mg tablet Take 1 tablet by mouth as needed for pain. 7 Active hydrocortisone (for_CORTIZONE) 1 % ointment Apply topically as needed. Active mupirocin (BACTROBAN) 2 % ointment Apply 1 application topically as needed. Active clobetasoL (TEMOVATE) 0.05 % cream Apply 1 application. topically 2 (two) times a day as needed. Apply to skin. Active fexofenadine (JERI) 180 mg tablet 180 mg daily. 2 Active fluticasone propionate (FLONASE) 50 mcg/actuation nasal sprayIndications :Rhinitis Allergic Administer 2 sprays into each nostril daily. 16 g 12 3 Active Additional Information Patient not taking.Reported on 12/24/2023 albuterol 90 mcg/actuation inhalerIndicatio ns:Asthma Mild Intermittent (HCC) Inhale 2 puffs every 4 (four) hours as needed (for cough, wheeze, chest tightness, shortness of breath). 18 g 2 3 Active beclomethasone (QVAR REDIHALER) 40 mcg/actuation inhaler Inhale 1 puff 2 (two) times a day. Rinse mouth with water after use to reduce aftertaste and incidence of candidiasis. Do not swallow. 21.2 g 6 3 Active cetirizine (ZyrTEC) 10 mg tablet Take 10 mg by mouth as needed. 4 Active levonorgestreL (MIRENA) 21 mcg/24 hours (8 yrs) 52 mg IUD 1 each by intrauterine route continuously. 4 Active tacrolimus (PROTOPIC) 0.1 % ointmentIndicati ons:Dermatitis Atopic Apply 1 Application topically 2 (two) times a day. Apply to face and neck. 100 g 3 4 Active Additional Information Patient taking differently:1 Application topical 2 times daily,Apply to eyelids, Reported on 02/19/2024 triamcinolone (KENALOG) 0.5 % cream Apply topically as needed. 4 Active dupilumab (Dupixent Pen) 300 mg/2 mL injectionIndicat ions:Dermatitis Atopic Inject 2 mL (300 mg total) under the skin every 14 (fourteen) days. 12 mL 3 03/02/2024 7:10 AM CDT 4 Active tobramycin (TOBREX) 0.3 % ophthalmic solution INSTILL 1 DROP INTO THE EYE(S) 4 TIMES DAILY 4 Active fluorometholone (FML) 0.1 % ophthalmic suspension Administer 1 drop into both eyes 2 (two) times a day for 14 days, THEN 1 drop daily for 14 days, THEN 1 drop every other day. 5 mL 1 025 Active Active Problems Problem Noted Date Diagnosed [...] Encounters Date Type Department Care Team Description 02/19/2024 3:45 PM CDT Office Visit Department of Ophthalmology in [place], [place] [address] [place] [phone] Adrienne Garza M.D. 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 Med Refill 12/26/2023 5:46 PM CDT - 12/26/2023 11:59 PM CDT Hospital Encounter Department of Radiology in [address] [phone] Amy Vernon APRN, C.N.P., M.S.N. Pelvic And Perineal Pain; Surveillance Intrauterine Device; Screening For Venereal Disease Discharge Disposition: Home or Self Care 12/24/2023 2:00 PM CDT Office Visit Department of Obstetrics and Gynecology in [address] [phone] Amy Vernon APRN, C.N.P., M.S.N. Pelvic And Perineal Pain (Primary Dx); Surveillance Intrauterine Device; Screening For Venereal Disease Discharge Disposition: Home or Self Care 12/18/2023 Clinical Communication Department of Obstetrics and Gynecology in [place], [place] [address] [place] [phone] Amy Vernon, NATHALY, C.N.P., M.S.N. from Last 3 Months Immunizations Name Administration [...] Psoriasis Father's Brother Hyperlipidemia Maternal Grandfather laurita bañuelos Lung cancer Maternal Grandfather laurita bañuelos Other cancer Maternal Grandfather laurita bañuelos bone Prostate cancer Maternal Grandfather laurita bañuelos Skin cancer Maternal Grandfather laurita bañuelos Hypertension Maternal Grandmother jumana maciason Obesity Maternal Grandmother jumana bañuelos Anesthesia problems Mother neida villarreal Causes vomiting Psoriasis Mother neida villarreal Sleep apnea Mother neida villarreal Psoriasis Mother's Brother Diabetes Paternal Grandfather adelso schultz Asthma Sister 1 [employer] Psychiatric Sister 1 [employer] Rhinitis Sister 1 [employer] ADD Sister 2 flora schultz Obesity Sister 2 flora schultz ADD Sister 3 eri heimsness Relation Name Status Comments Father carlitos schultz Father's Brother Maternal Grandfather laurita bañuelos Maternal Grandmother jumana bañuelos Mother neida villarreal Mother's Brother Paternal Grandfather adelso schultz Sister 1 [employer] Sister 2 flora schultz Sister 3 eri heimsness Social History Tobacco Use Types Packs/Day Years Used Date Smoking Tobacco: Some Days Cigarettes Passive Smoke Exposure: Past Smokeless Tobacco: Never Tobacco Cessation:Ready to Q uit: Not Asked; Counseling Given: Not Answered Comments:Vape Alcohol Use Standard Drinks/Week Comments Not Currently 0 (1 standard drink = 0.6 oz pure alcohol) Have alcohol a couple times a month [facility] Utilities Answer Date Recorded In the past 12 months has e [employer] gas, oil, or water [employer] threatened to shut off services in your [...] often do you attend chur ch or worship services? Never 08/29/2022 Do you belong to any clubs o r organizations such as restorationism groups, unions, fraternal or athletic groups, or [...] Answer Date Recorded PHQ-2 Score 4 05/16/2023 [facility] [employer] of Occupat ional Health - Occupational Stress [...] your living situation today? I have a [facility] place to live 09/10/2023 Education Answer Date Recorded What is the highest level of school you have completed or the highest degree you have received? 12th grade 08/29/2022 Comments Unknown Sex and Gender Information Value Date Recorded Sex Assigned at Female 07/26/2017 10:00 AM CDT Legal Sex Female 10:13 PM METAL BONDING ASSEMBLER Gender Identity Female 07/26/2017 10:00 AM CDT Sexual Orientation Straight 07/26/2017 10 :00 AM CDT Last Filed Vital Signs Vital Sign Reading Time Taken Comments Blood Pressure 128/75 12/24/2023 2:10 PM CDT Pulse 78 12/24/2023 2:10 PM CDT Temperature 36.6 ??C (97.8 ??F) 08/27/2023 1:21 PM CD T Respiratory Rate 16 11/28/2022 2:37 PM CDT Oxygen Saturation 96% 05/17/2023 1:18 PM METAL BONDING ASSEMBLER Inhaled Oxygen Concentration - - Weight 68.1 kg (150 lb 3.2 oz) 12/24/2023 2:10 P M CDT Height 171.5 cm (5' 7.52) 12/24/2023 2:10 PM CD T Body Mass Index 23.16 12/24/2023 2:10 PM CDT Plan of Treatment Health Maintenance Due Date Last Done Comments HIV Screening 1999 Hepatitis C Screening 1999 Pneumococcal vaccine (0-64 y ears) (1 of 1 - PPSV23 or PCV20) 2005 09/19/2000, 09/19/2000, 02/14/2000, Additional history exists Asthma Action Plan 07/26/2017 DTaP,Tdap,and Td Vaccines (7 - Td or Tdap) 12/06/2020 12/06/2010, 01/19/2004, 01/19/2004, Additional history exists COVID-19 Vaccine (5 - 2023-2 5 season) 2024 04/04/2022, 03/21/2021, 08/31/2020, Additional history exists Asthma Control Test Questionnaire 07/01/2024 024 Asthma Management/Exacerbati on Questionnaire (AMQ/AEQ) 07/01/2024 07/01/2023 Tobacco Cessation counseling 02/18/2025 02/19/2024 Cervical/Vaginal Cancer Screening 05/21/2026 024 Hepatitis B Vaccines Completed 02/14/2000, 02/14/2000, 1999, Additional history exists IPV Vaccines Completed 01/19/2004, 08/05, 1999, Additional history exists Varicella Vaccines Completed 12/06/2010, 0 01/19/2004, 01/19/2004, Additional history exists HPV Vaccines Completed 02/20/2021, 09/03, 07/15/2020 Depression Screening (Annual PHQ-2) Completed 05/17/2023, 05/16/2023 Chlamydia and Gonorrhea Screening Discontinued 024, 05/21/2023 Influenza Vaccine Completed 01/03/2024, , 01/28/2022, Additional history exists Medical Devices Implanted Type Area Clinical Support Associate Device Identifier Shelf Expiration Date Model / Serial / Lot Mirena- [id number] Implanted:Qty : 1 on 05/21/2023 by Amy Vernon APRN, C.N.P., M.S.N. Intrauterine Device Uterus 05/21/2031 / / [id number] Procedures Procedure Name Priority Date/Time Associated Diagnosis Comments US PELVIS TRANSVAGINAL AND TRANSABDOMINAL RAD - Routine (most inpatients and all outpatients) 12/26/2023 6:41 PM CDT Pelvic And Perineal Pain Surveillance Intrauterine Device Screening For Venereal Disease CHLAMYDIA/GONORRHOEA E AMPLIFIED RNA Routine 12/24/2023 2:29 PM CDT Pelvic And Perineal Pain Surveillance Intrauterine Device Screening For Venereal Disease THINPREP SCREEN HPV REFLEX Routine 05/21/2023 4:05 PM METAL BONDING ASSEMBLER Pap Smear Examination from Last 3 Months or Most Recently Relevant to Health Maintenance Results * US Pelvis Transvaginal and Transabdominal (12/26/2023 6:41 PM CDT) Anatomical Region Laterality Modality Pelvis, Ultrasound RST LOS, Ultrasound ARZ LOS, Ultrasound FLA LOS N/A Ultrasound Impressions 12/26/2023 8:04 PM CDT Normal study. IUD noted in satisfactory position. Narrative 12/26/2023 8:04 PM CDT REVISED REPORT: EXAM: US PELVIS TRANSVAGINAL AND TRANSABDOMINAL COMPARISON: 07/05/2023 TECHNIQUE: Transabdominal and transvaginal imaging with 3D post-processing performed on a non-independent workstation in order to better evaluate IUD position. Transvaginal exam performed to better visualize the uterus and/or adnexal regions. FINDINGS: Uterus: 4.2 cm x 4.8 cm x 6.6 cm. Retroverted Myometrium: Normal. Endometrium: Normal. IUD in satisfactory position. Thickness: 6 mm Right ovary: Normal. Physiological cysts only. ??Ovarian volume: 8 ml. Left ovary: Normal. Physiological cysts only. ??Ovarian volume: 4 ml. Intraperitoneal Fluid: None. Procedure Note Chester Monroe M.D. - 01/07/2024 REVISED REPORT: EXAM: US PELVIS TRANSVAGINAL AND TRANSABDOMINAL COMPARISON: 07/05/2023 TECHNIQUE: Transabdominal and transvaginal imaging with 3D post-processing performed on a non-independent workstation in order to better evaluate IUDposition. Transvaginal exam performed to better visualize the uterus and/or adnexalregions. FINDINGS: Uterus: 4.2 cm x 4.8 cm x 6.6 cm. Retroverted Myometrium: Normal. Endometrium: Normal. IUD in satisfactory position. Thickness: 6 mm Right ovary: Normal. Physiological cysts only. Ovarian volume: 8 ml. Left ovary: Normal. Physiological cysts only. Ovarian volume: 4 ml. Intraperitoneal Fluid: None. IMPRESSION: Normal study. IUD noted in satisfactory position. Leland Gates APRNNAubrey., M.S.N. [facility] KAROLINE BONILLA Edited Result - Final * Chlamydia / Gonorrhoeae Amplified RNA (12/24/2023 2:29 PM CDT) Source Swab, Vagina 12/24/2023 11:42 PM CDT [facility] Chlamydia trachomatis amplified RNA Negative Negative 12/24/2023 11:42 PM CDT MKTO Source Swab, Vagina 12/24/2023 11:42 PM CDT [facility] Neisseria gonorrhoeae amplified RNA Negative Negative 12/24/2023 11:42 PM CDT [facility]TO Swab (Vagina) 12/24/2023 2:2 9 PM CDT 12/24/2023 4:32 PM CDT Libby Gates APRN.N.P., M.S.N. LAB MICROBIOLOGY - GENERAL ORDERABLES Final Result [facility] [address] [place] [id number], [facility] [address] [place] [id number] * ThinPrep Screen HPV Reflex (05/21/2023 4:05 PM METAL BONDING ASSEMBLER) 05/23/2023 10:34 AM METAL BONDING ASSEMBLER [facility] Report electronically signed by Jagdeep Garland MD I verify that I have examined all relevant slides/materials for the specimen(s) and rendered or confirmed the diagnosis. 05/23/2023 10:34 AM METAL BONDING ASSEMBLER [facility] Gross Description Received specimen in a ThinPrep vial. 05/23/2023 10:34 AM METAL BONDING ASSEMBLER [facility] Pap Test Source Cervical/Endocervi robles 05/23/2023 10:34 AM METAL BONDING ASSEMBLER [facility] Hormone Therapy/Contracep tives None/Not known 05/23/2023 10:34 AM METAL BONDING ASSEMBLER [facility] Interpretation Cervical/Endocervi robles ??(ThinPrep): Satisfactory for Evaluation Negative for Intraepithelial Lesion or Malignancy 05/23/2023 10:34 AM METAL BONDING ASSEMBLER [facility] Thin Prep Vial (Cervix/Endocerv ix) 05/21/2023 4:05 PM METAL BONDING ASSEMBLER 05/22/2023 7:31 AM METAL BONDING ASSEMBLER us Amy Vernon APRN C.N.P., M.S.N. LAB PAP PATH DX ORDERABLES Final Result Performing Organization Address City/State/[facility] Co de Phone Number [facility] [address] [place] [address], [facility] [address] [address] from Last 3 Months or Most Recently Relevant to Health Maintenance Insurance [employer] Care Teams Business Systems Architect Relationship Specialty Start Date End Date Jose Martin Ramirez M.D. [address] [place] [phone] PCP - General 09/27/23
--- OUTSIDE RECORDS SUMMARY | 2024-03-11 23:17 | XMS_ITS | Encounter Summary ---
Author Organization [facility] Address [address] [place] [address] Care Team Providers Care Abstract Writer Name Role Phone Jose Martin Ramirez M.D. Primary Care Provider [phone] Encounter Details Date Type Department Care Team (Late st Contact Info) Description 12/18/2023 Clinical Communication Department of Obstetrics and Gynecology in [place], [place] [address] [place] [phone] Amy Vernon, NATHALY, C.N.P., M.S.N. [address] [place] [phone] Social History Tobacco Use Types Packs/Day Years Used Date Smoking Tobacco: Some Days Cigarettes Passive Smoke Exposure: Past Smokeless Tobacco: Never Comments:Vape Alcohol Use Standard Drinks/Week Comments Not Currently 0 (1 standard drink = 0.6 oz pure alcohol) Have alcohol a couple times a month [facility] Utilities Answer Date Recorded In the past 12 months has [employer], gas, oil, or water company threatened [...] often do you attend chur ch or mandaen services? Never 08/29/2022 Do you belong to any clubs o r organizations such as anglican groups, unions, fraternal or athletic groups, or [...] Answer Date Recorded PHQ-2 Score 4 05/16/2023 [facility] of Occupat ional Health - Occupational Stress [...] your living situation today? [facility] 09/10/2023 Education Answer Date Recorded What is the highest level of school you have completed or the highest degree you have received? 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 Offered appointment today, which was declined. She will see Amy on Saturday 12/23. Advised patient if pain or bleeding worsens to call in, if patient sees that IUD expels she is to let us know and use back up contraceptive until appointment. Patient verbalized understanding. documented in this encounter Plan of Treatment Not on file documented as of this encounter Visit Diagnoses Not on filedocumented in this encounter Additional Health Concerns Assessment Noted Time PHQ-9 Depression Total Score: 8 05/16/19 6:00 PM CUSTOMER SERVICE MANAGER documented as of this encounter Care Teams Abstract Writer Relationship Specialty Start Date End Date Jose Martin Ramirez M.D. NPTrey: [id number] [address] [place] [phone] PCP - General 09/27/23 documented as of this encounter
--- OUTSIDE RECORDS SUMMARY | 2024-03-11 23:17 | XMS_ITS | Encounter Summary ---
Author Organization [facility] Address [address] [place] [address] Care Team Providers Care Program Advisor Name Role Phone Jose Martin Ramirez M.D. Primary Care Provider [phone] Reason for Referral * Outpatient (Routine) - Authorized Specialty Diagnoses / Procedures Referred By Safia abdullahi Referred To Contact Ophthalmology Adrienne Garza M.D. [address] [place] [address] Phone: tel: fax: [facility] Referral ID Status Reason Start Date Expiration Date V isits Requested Visits Authorized [id number] Authorized 02/19/2024 08/20/2025 1 1 Reason for Visit * Reason Comments Follow-up * Outpatient (Routine) - Closed Specialty Diagnoses / Procedures Referred By Safia abdullahi Referred To Contact Ophthalmology Adrienne Garza M.D. [address] [place] [phone] Phone: tel: fax: [facility] Referral ID Status Reason Start Date Expiration Date Visits Re quested Visits Authorized [id number] Closed 10/31/2023 05/01/2025 1 1 Encounter Details Date Type Department Care Team (Latest Contact Info) Description 02/19/2024 3:45 PM CDT Office Visit Department of Ophthalmology in [place], [place] [address] [place] [phone] Adrienne Garza M.D. 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 Never 08/29/2022 Do you belong to any clubs o r organizations such as rastafarian groups, unions, fraternal or athletic groups, or [...] Answer Date Recorded PHQ-2 Score 4 05/16/2023 [facility] of Occupat ional [facility] - Occupational Stress Questionnaire Answer Date [...] AM CDT Legal Sex Female 10:[address] Gender Identity Female 07/26/2017 10:00 AM CDT Sexual Orientation Straight 07/26/2017 10 :00 AM CDT documented as of this encounter Progress Notes * Adrienne Garza M.D. - 02/19/2024 3:45 PM CDT Kierra Schultz was seen today for No chief complaint on file. This patient was referred by Marta Meza M.D. #1 Dupixent related keratoconjunctivitis -started Dupixent about 1 year ago -treated with 4 week taper of prednisolone 1% which relieved symptoms -patient provided photo when eyes were flaring; today she is much improved compared to the photos #2 Allergic conjunctivitis Plan: -FML 0.1% 2x/day for 1 week, then 4 weeks 1x/day, then every other day for 4 weeks -Tacrolimus on eyelids - can increase to 2x/day -OTC lubricants and gels PRN Return 6-8 weeks - after dropping down to every other day for 4 weeks. Return sooner if unable to taper documented in this encounter Plan of Treatment Scheduled Referrals Name Type Priority Associated Diagnoses Order Schedule Ophthalmology office visit (clinic) Outpatient Referral Routine Expected: 05/06/2024 (Approximate), Expires: 05/21/2025 documented as of this encounter Visit Diagnoses Diagnosis Keratoconjunctivitis Sicca Not Specified As Sjogrens Bilateral- Primary documented in this encounter Additional Health Concerns Assessment Noted Time PHQ-9 Depression Total Score: 8 05/16/19 6:[address] documented as of this encounter Care Teams Program Advisor Relationship Specialty Start Date End Date Jose Martin Ramirez M.D. [address] [place] [phone] PCP - General 09/27/23 documented as of this encounter
--- OUTSIDE RECORDS SUMMARY | 2024-03-11 23:17 | XMS_ITS | Encounter Summary ---
Author Organization [facility] Address [address] [place] [address] Care Team Providers Care Paver Operator Name Role Phone Jose Martin Ramirez M.D. Primary Care Provider [phone] Reason for Referral * Outpatient (Routine) - Closed Specialty Diagnoses / Procedures Referred By Contac t Referred To Contact Diagnoses Pelvic And Perineal Pain Surveillance Intrauterine Device Screening For Venereal Disease Procedures US Pelvis Transvaginal and Transabdominal Amy Vernon APRN, C.N.P., M.S.N. [address] [place] [address] Phone: tel: fax: [facility] Region Referral ID Status Reason Start Date Expiration Date Visits Re quested Visits Authorized [id number] Closed 12/24/2023 12/23/2024 1 1 Reason for Visit * Outpatient (Routine) - Closed Specialty Diagnoses / Procedures Referred By Contac t Referred To Contact Diagnoses Pelvic And Perineal Pain Surveillance Intrauterine Device Screening For Venereal Disease Procedures US Pelvis Transvaginal and Transabdominal Amy Vernon APRN, C.N.P., M.S.N. [address] [place] [address] Phone: tel: fax: [facility] Region Referral ID Status Reason Start Date Expiration Date Visits Re quested Visits Authorized [id number] Closed 12/24/2023 12/23/2024 1 1 Encounter Details Date Type Department Care Team (Latest Contact Info) Description 12/26/2023 5:46 PM CDT - 12/26/2023 11:59 PM CDT Hospital Encounter Department of Radiology in [place], [place] [address] [place] [phone] Amy Vernon, NATHALY, C.N.P., M.S.N. [address] [place] [phone] Pelvic And Perineal Pain; Surveillance Intrauterine Device; Screening For Venereal Disease Discharge Disposition: Home or Self Care Social History Tobacco Use Types Packs/Day Years Used Date Smoking Tobacco: Some Days Cigarettes Passive Smoke Exposure: Past Smokeless Tobacco: Never Comments:Vape Alcohol Use Standard Drinks/Week Comments Not Currently 0 (1 standard drink = 0.6 oz pure alcohol) Have alcohol a couple times a month [facility] Utilities Answer Date Recorded In the past 12 months has e [employer], gas, oil, or water [employer] threatened to shut off services in your [...] often do you attend chur ch or holiness services? Never 08/29/2022 Do you belong to any clubs o r organizations such as denominational groups, unions, fraternal or athletic groups, or [...] Date Recorded PHQ-2 Score 4 05/16/2023 [facility] of Occupat ional Health - Occupational [...] your living situation today? I have a [facility] place to live 09/10/2023 Education Answer Date Recorded What is the highest level of school you have completed or the highest degree you have received? 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 dupilumab (Dupixent Pen) 300 mg/2 mL injectionIndicati ons:Dermatitis Atopic Inject 2 mL (300 mg total) under the skin every 14 (fourteen) days. 12 mL 3 03/02/2024 7:10 AM CDT 08/12/2023 ferrous sulfate 325 mg (65 mg iron) tablet Take 1 tablet by mouth daily. 07/02/2016 fexofenadine (JERI) 180 mg tablet 180 mg daily. 01/31/2022 fluticasone propionate (FLONASE) 50 mcg/actuation nasal sprayIndications: Rhinitis Allergic Administer 2 sprays into each nostril daily. 16 g 12 01/24/2023 hydrocortisone (for_CORTIZONE) 1 % ointment Apply topically as needed. ibuprofen (for_ADVIL,MOTRIN ) 200 mg tablet Take 1 tablet by mouth as needed for pain. 07/30/2016 levonorgestreL (MIRENA) 21 mcg/24 hours (8 yrs) 52 mg IUD 1 each by intrauterine route continuously. 05/21/2023 mupirocin (BACTROBAN) 2 % ointment Apply 1 application topically as needed. tacrolimus (PROTOPIC) 0.1 % ointmentIndicatio ns:Dermatitis Atopic Apply 1 Application topically 2 (two) times a day. Apply to face and neck. 100 g 3 06/06/2023 tobramycin (TOBREX) 0.3 % ophthalmic solution INSTILL 1 DROP INTO THE EYE(S) 4 TIMES DAILY 09/26/2023 triamcinolone (KENALOG) 0.5 % cream Apply topically as needed. 07/08/2023 fluorometholone (FML) 0.1 % ophthalmic suspension Administer 1 drop into both eyes 2 (two) times a day for 14 days, THEN 1 drop daily for 14 days, THEN 1 drop every other day. 5 mL 1 10/31/2023 documented as of this encounter Plan of Treatment Not on file documented as of this encounter Procedures Procedure Name Priority Date/Time Associated Diagnosis Comments US PELVIS TRANSVAGINAL AND TRANSABDOMINAL RAD - Routine (most inpatients and all outpatients) 12/26/2023 6:41 PM CDT Pelvic And Perineal Pain Surveillance Intrauterine Device Screening For Venereal Disease documented in this encounter Results * US [...] Normal study. IUD noted in satisfactory position. us Amy Vernon APRN, C.N.P., M.S.N. IMG US KAROLINE BONILLA Edited Result - Final documented in this encounter Visit Diagnoses Diagnosis Pelvic And Perineal Pain Surveillance Intrauterine Device Screening For Venereal Disease documented in this encounter Additional Health Concerns Assessment Noted Time PHQ-9 Depression Total Score: 8 05/16/19 24 6:00 PM FOREST ECONOMICS PROFESSOR documented as of this encounter Care Teams Paver Operator Relationship Specialty Start Date End Date Jose Martin Ramirez M.D. [address] [place] [phone] PCP - General 09/27/23 documented as of this encounter
--- OUTSIDE RECORDS SUMMARY | 2024-03-11 23:17 | XMS_ITS ---
Author Organization [facility] Address [address] [place] [address] Care Team Providers Care Information Clerk Name Role Phone Unavailable Unavailable Unavailable Surgery Details Not on file Complications Check Surgery Details section. Procedure Estimated Blood Loss Check Surgery Details section. Procedure Findings Check Surgery Details section. Procedure Specimens Taken Check Surgery Details section.
--- OUTSIDE RECORDS SUMMARY | 2024-03-11 23:17 | XMS_ITS | Encounter Summary ---
Author Organization [facility] Address [address] [place] [address] Care Team Providers Care Developer Architect Name Role Phone Jose Martin Ramirez M.D. Primary Care Provider [phone] Reason for Referral * Outpatient (Routine) - Closed Specialty Diagnoses / Procedures Referred By Safia abdullahi Referred To Contact Diagnoses Pelvic And Perineal Pain Surveillance Intrauterine Device Screening For Venereal Disease Procedures US Pelvis Transvaginal and Transabdominal Amy Vernon APRN, C.N.P., M.S.N. [address] [place] [address] Phone: tel: fax: [facility] Region Referral ID Status Reason Start Date Expiration Date Visits Re quested Visits Authorized [id number] Closed 12/24/2023 12/23/2024 1 1 Reason for Visit * Reason Comments Contraception IUD string check, co ncerns with bleeding/cramping Encounter Details Date Type Department Care Team (Late Contact Info) Description 12/24/2023 2:00 PM CDT Office Visit Department of Obstetrics and Gynecology in [place], [place] [address] [place] [phone] Amy Vernon APRN, C.N.P., M.S.N. [address] [place] [phone] Pelvic And Perineal Pain (Primary Dx); Surveillance [...] Have alcohol a couple times a month [facility] [employer]ities Answer Date Recorded In the past 12 months has e [employer], [employer], oil, or water [employer] threatened to shut off services in your [...] often do you attend chur ch or sabianism services? 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 - 12/24/2023 2:00 PM CDT SUBJECTIVE REASON FOR VISIT Pelvic pain HISTORY OF PRESENT ILLNESS Ms. Schultz is a 23 y.o. who presents for pelvic pain and IUD check. She had the Mirena IUD inserted 05/21/23 for contraception and menstrual benefit. History of menorrhagia and dysmenorrhea. She started having pelvic cramping and vaginal bleeding 3 days ago. The pain feels similar to her as when the IUD was inserted and she is concerned that the device is expelling.Prior to this week, her last bleeding was in September. She denies pelvic pain between September and now. She de nies dyspareunia. She did have a new sexual partner since last testing; they broke up a few days ago. I have reviewed and updated the following: allergies, current medications, medical history, social history, and problem list REVIEW OF SYSTEMS A comprehensive review of systems was negative except for: Genitourinary: pelvic pain and vaginal bleeding OBJECTIVE VITAL SIGNS Blood Pressure: (128)/(75) 128/75 Height: [171.5 cm] 171.5 cm Weight: [68.1 kg] 68.1 kg BSA (Calculated - sq m): [1.8 sq meters] 1.8 sq meters BMI (Calculated): [23.2 kg/m??] 23.2 kg/m?? Pulse Rate: [78] 78 PHYSICAL EXAM Constitutional General: She is not in acute distress. Appearance: Normal appearance. She is well-groomed. She is not ill-appearing. Pelvic exam was performed with patient supine. Clitoris: Clitoris is normal. Perineum: The perineum is normal. Vagina: The vagina exhibits no erythema and no tenderness. Adnexa: Right adnexa shows no mass, no tenderness and no fullness. Left adnexa shows no mass, no tenderness and no fullness. Cervix: The cervix is normal. Cervix exhibits visible IUD strings. Cervix does not exhibit motion tenderness. Specimen for infection testing collected from the cervix. Prolapse: well-supported anterior, apical, posterior, vaginal kennedy. Uterus: The uterus is normal. The uterus is smooth. Genitourinary Comments: Red tinged vaginal discharge present. No purulent discharge. Cervix closed.IUD strings 2 cm in length. Lymphadenopathy System normal. Neurological Mental Status: She is alert. Skin General: Skin is warm and dry. Psychiatric Mood and Affect: Mood normal. Speech: Speech normal. Behavior: Behavior normal. Behavior is cooperative. Cognition and Memory: Cognition normal. Cleat Blanker for pelvic exam or qualifying procedure: Radha Chirinos, C.M.A. DIAGNOSTICS I have reviewed the diagnostics from last 6 months, including normal pelvic US July 2023. ASSESSMENT / PLAN #1 Pelvic And Perineal Pain #2 Surveillance Intrauterine Device #[address]/GC screening today Pelvic US ordered for further reassurance on IUD positioning Discussed history of dysmenorrhea and menorrhagia and time it can take to achieve full benefit fromMirena IUD. I will follow up by telephone with results. Amy Vernon APRN, C.N.P., M.S.N. documented in this encounter Plan of Treatment Not on file documented as of this encounter Procedures Procedure Name Priority Date/Time Associated Diagnosis Comments CHLAMYDIA/GONORRHO EAE AMPLIFIED RNA Routine 12/24/2023 2:29 PM CDT [...] Normal study. IUD noted in satisfactory position. Amy Vernon APRN, C.N.P., M.S.N. [facility] KAROLINE BONILLA Edited Result - Final * [...] CDT 12/24/2023 4:32 PM CDT Libby Gates APRN.N.Kanu., M.S.N. LAB MICROBIOLOGY - GENERAL ORDERABLES Final Result [facility] [address] [place] [id number], [facility] [address] [place] [address] documented in this encounter Visit Diagnoses Diagnosis Pelvic And Perineal Pain- Primary Surveillance Intrauterine Device Screening For Venereal Disease Pelvic And Perineal Pain Surveillance Intrauterine Device Screening For Venereal Disease documented in this encounter Additional Health Concerns Assessment Noted Time PHQ-9 Depression Total Score: 8 05/16/19 24 6:00 PM CERTIFIED PEDIATRIC NURSE PRACTITIONER documented as of this encounter Care Teams Developer Architect Relationship Specialty Start Date End Date Jose Martin Ramirez M.D. [address] [place] [phone] PCP - General 09/27/23 documented as of this encounter
--- OUTSIDE RECORDS SUMMARY | 2024-03-11 23:17 | XMS_ITS | Referral Summary ---
Author Organization [facility] Address [address] [place] [address] Care Team Providers Care Hot Dipper Name Role Phone Jose Martin Ramirez M.D. Primary Care Provider [phone] Source Comments Patient records contain information from all sites at [facility]. For routine questions regarding patient records, call [phone] during business hours, M-F 8:00 AM - 5:00 PM Central Time. Record requests for emergency care only can be directed to [phone] at any time.[facility] Encounters Date Type Department Care Team Description 02/19/2024 3:45 PM CDT Office Visit Department of Ophthalmology in [place], [place] [address] [place] [address] Adrienne Garza M.D. 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 Med Refill 12/26/2023 5:46 PM CDT - 12/26/2023 11:59 PM CDT Hospital Encounter Department of Radiology in [place], [place] [address] [place] [phone] Amy Vernon, NATHALY, C.N.P., M.S.N. Pelvic And Perineal Pain; Surveillance Intrauterine Device; Screening For Venereal Disease Discharge Disposition: Home or Self Care 12/24/2023 2:00 PM CDT Office Visit Department of Obstetrics and Gynecology in [place] [address] [place] [address] Amy Vernon APRN, C.N.Kanu., M.S.N. Pelvic And Perineal Pain (Primary Dx); Surveillance Intrauterine Device; Screening For Venereal Disease Discharge Disposition: Home or Self Care 12/18/2023 Clinical Communication Department of Obstetrics and Gynecology in [place] [address] [place] [address] Amy Vernon APRN, C.N.P., M.S.N. from Last 3 Months Allergies Active Allergy [...] drop every other day. 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 Never 08/29/2022 Do you belong to any clubs o r organizations such as episcopal groups, unions, fraternal or athletic groups, or [...] Answer Date Recorded PHQ-2 Score 4 05/16/2023 [facility]ational Stress Questionnaire Answer Date Recorded [...] AM CDT Legal Sex Female 10:13 PM LINE CLEARANCE FOREMAN Gender Identity Female 07/26/2017 10:00 AM CDT Sexual Orientation Straight 07/26/2017 10 :00 AM CDT Last Filed Vital Signs Vital Sign Reading Time Taken Comments Blood Pressure 128/75 12/24/2023 2:10 PM CDT Pulse 78 12/24/2023 2:10 PM CDT Temperature 36.6 ??C (97.8 ??F) 08/27/2023 1:21 PM CD T Respiratory Rate 16 11/28/2022 2:37 PM CDT Oxygen Saturation 96% 05/17/2023 1:18 PM LINE CLEARANCE FOREMAN Inhaled Oxygen Concentration - - Weight 68.1 kg (150 lb 3.2 oz) 12/24/2023 2:10 P M CDT Height 171.5 cm (5' 7.52) 12/24/2023 2:10 PM CD T Body Mass Index 23.16 12/24/2023 2:10 PM CDT Plan of Treatment Not on file Medical Devices Implanted Type Area Warehouse Consultant Device Identifier Shelf Expiration Date Model / Serial / Lot Mirena- [id number] Implanted:Qty : 1 on 05/21/2023 by Amy Vernon, NATHALY, C.N.P., M.S.N. Intrauterine Device Uterus 05/21/2031 / / [id number] Procedures Procedure Name Priority Date/Time Associated Diagnosis [...] SCREEN HPV REFLEX Routine 05/21/2023 4:05 PM LINE CLEARANCE FOREMAN Pap Smear Examination from Last 3 Months [...] satisfactory position. Amy Vernon APRN, C.N.P., M.S.N. IMG US KAROLINE BONILLA Edited Result - Final * [...] 9 PM CDT 12/24/2023 4:32 PM CDT Amy Vernon APRN, C.N.P., M.S.N. LAB MICROBIOLOGY - GENERAL ORDERABLES Final Result [facility] [address] [place] [address], [facility] [address] [place] [address] * ThinPrep Screen HPV Reflex (05/21/2023 4:05 PM LINE CLEARANCE FOREMAN) 05/23/2023 10:34 AM LINE CLEARANCE FOREMAN [facility] Report electronically signed by Jagdeep Garland MD I verify that I have examined all relevant slides/materials for the specimen(s) and rendered or confirmed the diagnosis. 05/23/2023 10:34 AM LINE CLEARANCE FOREMAN [facility] Gross Description Received specimen in a ThinPrep vial. 05/23/2023 10:34 AM LINE CLEARANCE FOREMAN [facility] Pap Test Source Cervical/Endocervi robles 05/23/2023 10:34 AM LINE CLEARANCE FOREMAN [facility] Hormone Therapy/Contracep tives None/Not known 05/23/2023 10:34 AM LINE CLEARANCE FOREMAN [facility] Interpretation Cervical/Endocervi robles ??(ThinPrep): Satisfactory for Evaluation Negative for Intraepithelial Lesion or Malignancy 05/23/2023 10:34 AM LINE CLEARANCE FOREMAN [facility] Thin Prep Vial (Cervix/Endocerv ix) 05/21/2023 4:05 PM LINE CLEARANCE FOREMAN 05/22/2023 7:31 AM LINE CLEARANCE FOREMAN us Amy Vernon APRN C.N.P., M.S.N. LAB PAP PATH DX ORDERABLES Final Result [facility] [address] [place] [address], [place] [facility] [address] [facility] [address] [place] [address] from Last 3 Months or Most Recently Relevant to Health Maintenance Insurance [employer] Care Teams Hot Dipper Relationship Specialty Start Date End Date Jose Martin Ramirez M.D. [address] [place] [phone] PCP - General 09/27/23
--- OUTSIDE RECORDS SUMMARY | 2024-03-11 23:17 | XMS_ITS | Encounter Summary ---
Author Organization [facility] Address [address] [place] [address] Care Team Providers Care Relays Draftsperson Name Role Phone Jose Martin Ramirez M.D. Primary Care Provider [phone] Reason for Visit * Reason Comments Med Refill Encounter Details Date Type Department Care Team (Late st Contact Info) Description 02/04/2024 Refill Department of Ophthalmology in [place], [place] [address] [place] [address] Adrienne Garza M.D. [address] [place] [phone] Med Refill Social History Tobacco Use Types Packs/Day Years Used Date Smoking Tobacco: Some Days Cigarettes Passive Smoke Exposure: Past Smokeless Tobacco: Never Comments:Vape Alcohol Use Standard Drinks/Week Comments Not Currently 0 (1 standard drink = 0.6 oz pure alcohol) Have alcohol a couple times a month [facility] Utilities Answer Date Recorded In the past 12 months has [email or web address], gas, oil, or water [employer] threatened to shut off services in your [...] often do you attend chur ch or yazidism services? Never 08/29/2022 Do you belong to any clubs o r organizations such as baptist groups, unions, fraternal or athletic groups, or [...] Answer Date Recorded PHQ-2 Score 4 05/16/2023 [facility] [place] [facility] Occupat ional [facility] - Occupational Stress [...] AM CDT Legal Sex Female 10:13 PM DEGREASER OPERATOR Gender Identity Female 07/26/2017 10:00 AM CDT Sexual Orientation Straight 07/26/2017 10 :00 AM CDT documented as of this encounter Plan of Treatment Not on file documented as of this encounter Visit Diagnoses Not on filedocumented in this encounter Additional Health Concerns Assessment Noted Time PHQ-9 Depression Total Score: 8 05/16/19 24 6:00 PM DEGREASER OPERATOR documented as of this encounter Care Teams Relays Draftsperson Relationship Specialty Start Date End Date Jose Martin Ramirez M.D. ERIC: [id number] [address] [place] [phone] PCP - General 09/27/23 documented as of this encounter
--- NOTE | 2024-03-11 23:38 | ED.GENADULT ---
HPI - General Adult General Date Seen: 03/11/24 Chief complaint: Extremity Pain/Injury, Upper Stated complaint: dislocated L pinky finger Time Seen by Provider: 03/11/24 22:59 History of Present Illness HPI narrative: Pleasant 24-year-old female with a history of asthma, anxiety, eczema, micrognathia, presenting to the ER today with an injury to her left hand 5th finger. She accidentally slammed her left hand 5th finger in the door of her hydrate her tonight. She is not sure if she dislocated her not but she wonders if she may have. Ever since pinching her door in refrigerator it is not felt right. She has had some discomfort in the finger and also it feels somewhat numb. She is able to flex and extend and is able to move it. She also has some pain radiating up the ulnar border of her hand from that 5th finger. Incidentally she notes that she has had some chronic trouble with pain and numbness on the ulnar border of her left hand. She also notes that the ulnar styloid is less prominent on the left side than on the right. It has been like that for years and she has already had workup through her regular doctor with x-rays. She says her doctors are on concerned. Related Data Home Medications ?Medication ?Instructions ?Recorded ?Confirmed fexofenadine 180 mg tablet 180 mg PO Q24H 01/31/22 09/03/23 ([facility]) clobetasol 0.05 % topical ointment 1 applic topical BID PRN 02/26/22 10/03/23 ergocalciferol (vitamin D2) 10 mcg 400 unit PO DAILY 02/26/22 09/03/23 (400 unit) tablet dupilumab 300 mg/2 mL subcutaneous mg subcut 10/08/22 09/03/23 pen injector (Dupixent) beclomethasone dipropionate 40 inhalation 07/08/23 09/03/23 mcg/actuation HFA breath activated aerosol (Qvar RediHaler) tacrolimus 0.1 % topical ointment topical 07/08/23 09/03/23 Previous Rx's ?Medication ?Instructions ?Recorded albuterol sulfate 90 mcg/actuation 2 puff inhalation Q6H PRN 02/26/22 aerosol inhaler shortness of breath or wheezing #8.5 grams tobramycin 0.3 % eye drops 1 drp ophthalmic (eye) QID #5 mL 09/26/23 Allergies Allergy/AdvReac Type Severity Reaction Status Date / Time potato Allergy Mild Rash Verified 10/03/23 20:47 adhesive Allergy Unknown Rash Verified 10/03/23 20:47 cyclobenzaprine Allergy Unknown stomach Verified 10/03/23 20:47 pain cat dander Allergy Verified 10/03/23 20:47 [facility] Medical History Skin infection ?L08.9 - Local infection of the skin and subcutaneous tissue, unspecified (ICD-10) Sinusitis ?J32.9 - Chronic sinusitis, unspecified (ICD-10) Psoriasis ?L40.9 - Psoriasis, unspecified (ICD-10) Anemia, iron deficiency ?D50.9 - Iron deficiency anemia, unspecified (ICD-10) Dermatitis, atopic ?L20.9 - Atopic dermatitis, unspecified (ICD-10) Scoliosis ?M41.9 - Scoliosis, unspecified (ICD-10) 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 (ICD-10) Surgical History H/O lymph node biopsy ?Z98.890 - Other specified postprocedural states (ICD-10) History of oral surgery ?Z98.890 - Other specified postprocedural states (ICD-10) No significant past surgical history Social History Smoking Status: Never smoker Do you use any of these nicotine containing products: None Second hand tobacco smoke exposure: No How often do you have a drink containing alcohol: 2-4 times a month How often do you have six or more drinks on one occasion: Never AUDIT-C Alcohol total score: 2 Non-prescribed substance use: denies use Caffeine: Yes (DAILY) Are you using contraception or practicing any form of control: No Exam Narrative: Exam Narrative: Constitutional: Appears well-developed and well-nourished. Active. Non-toxic appearing. HENT: Head: Atraumatic. No signs of injury. Nose: No nasal discharge. Mouth/Throat: Mucous membranes are moist. Pharynx is normal. Tonsils symmetric. Uvula midline. Airway patent. Eyes: Conjunctivae normal and EOM are normal. Pupils are equal, round, and reactive to light. Right eye exhibits no discharge. Left eye exhibits no discharge. No icterus. Neck: Normal range of motion. Neck supple. No adenopathy. No stridor. Cardiovascular: Normal rate and regular rhythm. No murmur heard. No murmurs, rubs, or gallops. Brisk capillary refill Pulmonary/Chest: Effort normal. No stridor. No respiratory distress. No wheezes.No rhonchi. No rales. No retractions. Abdominal: Soft. Bowel sounds are normal. No distension. No mass. There is no tenderness. There is no rebound and no guarding. Musculoskeletal: Normal except for left hand, 5th digit. Normal inspection of the left upper extremity. Clavicle, shoulder, humerus, elbow, forearm and wrist are nontender. Her left ulnar styloid does appear to be less prominent than the right. There is no bruising or swelling or point tenderness there. Normal flexion and extension of the wrist. Normal inspection of the hand. There is no bruising or swelling. No bony crepitus over the metacarpals. Palmar surface of the hand is normal. Normal pronation/supination of the forearm. She is complaining of a funny feeling and some pain in her left 5th digit. Thumb and digits 2-4 are normal. She has no swelling or bruising of the left 5th digit. Difficult to localize the exact area of pain but it seems to be most tender over the PIP joint. No deformity, rotation, angulation. She does have intact flexion and extension of the MCP, PIP, DI P joints. She is complaining of some subjective paresthesias but does have intact sensory function on the radial and ulnar digital nerves. Normal distal capillary refill. She has long slender fingers and also long slender adhesive fingernails. Cap refill in the finger pad is normal. Neurological: Alert. Normal strength. No cranial nerve deficit or sensory deficit. Coordination normal. GCS eye subscore is 4. GCS verbal subscore is 5. GCS motor subscore is 6. Skin: Skin is warm. No rash noted. Const: Vital Signs, click to edit/add: Vital Signs - 24 hr 03/11/24 22:47 03/11/24 23:54 03/11/24 23:54 Temperature 98.5 F 98.5 F 98.5 F Pulse Rate [Right Pulse Oximeter] 78 71 71 Respiratory Rate 18 18 18 Blood Pressure [Ri ght Upper Arm] 143/89 H 125/78 125/78 Pulse Oximetry 99 99 Oxygen Delivery Me thod Room Air Room Air Course Vital Signs Vital signs: Initial Vital Signs Temperature 98.5 F 03/11/24 22:47 Temperature Source Temporal Artery Scan 03/11/24 22:47 Pulse Rate 78 03/11/24 22:47 Respiratory Rate 18 03/11/24 22:47 Blood Pressure 143/89 H 03/11/24 22:47 Blood Pressure Mean 107 H 03/11/24 22:47 Blood Pressure Position Sitting 03/11/24 22:47 Pulse Oximetry 99 03/11/24 22:47 Oxygen Delivery Method Room Air 03/11/24 22:47 Vital Signs Temperature 98.5 F 03/11/24 22:47 Pulse Rate 78 03/11/24 22:47 Respiratory Rate 18 03/11/24 22:47 Blood Pressure 143/89 H 03/11/24 22:47 Pulse Oximetry 99 03/11/24 22:47 Oxygen Delivery Method Room Air 03/11/24 22:47 Temperature 98.5 F 03/11/24 23:54 Pulse Rate 71 03/11/24 23:54 Respiratory Rate 18 03/11/24 23:54 Blood Pressure 125/78 03/11/24 23:54 Pulse Oximetry 99 03/11/24 23:54 Oxygen Delivery Method Room Air 03/11/24 23:54 Medical Decision Making MDM Narrative Medical decision making narrative: Pleasant 24-year-old female presenting to the ER today with a left 5th finger injury. X-rays are obtained and are fortunately negative for any acute fracture or dislocation. Patient wonders if she had dislocated her finger. Discussed that it is impossible to know this point whether not she had had a dislocation that was spontaneously reduced at home. At this point there is no active dislocation requiring reduction here in the ER. She is complaining of some subjective paresthesias in that finger but does not have any evidence for a digital nerve injury. She has good distal cap refill time. No evidence for any ischemia. Plan of care will be rest, protection, ice as needed. [id number] pain medications. She also notes that she has had some chronic trouble with pain and numbness on the ulnar side of her hand. I wonder if this could be an ulnar neuropathy. Would recommend outpatient follow-up with Orthopedics. She does not want to follow-up with [facility] because she gets all of her primary care through the [facility]. Her primary care used to be at [facility] in [place] but apparently her doctor retired. I discussed that it would be reasonable for her to follow up with providers that are in her network. To arrange a visit with the male Orthopedic Department she can either call them directly or call her old primary care office in [place] and they could set her up with Ortho. She agrees. Imaging Data XR finger, Left: Attestation: I have reviewed the pertinent imaging results. Radiologist's impression: Impression: No evidence of an acute bony abnormality. Discharge Plan Discharge Clinical Impression: Finger injury Instructions: Finger Sprain (ED) Additional Instructions: As we discussed, right now your x-rays look good. No signs of any broken bones or dislocations in your finger. It is possible that you dislocated your finger joint and ?popped? your finger back into joint at home before you came in here to the ER [facility]. For now, please try to rest her finger. If you are having pain you can use ice for 15 minutes every 3-4 hours to help reduce pain and swelling. Use ibuprofen 600 mg or acetaminophen 1000 mg every 6 hours as needed. If you have persistent pain or numbness lasting longer than 1-2 days, please follow-up with your regular doctors in [place], or the orthopedic team through the [facility] as soon as possible. If you need you can follow-up with the [facility]. Call [phone] to schedule an ER follow-up appointment with the [place] [facility] if necessary. Prescriptions: No Action ergocalciferol (vitamin D2) 10 mcg (400 unit) tablet 400 unit PO DAILY clobetasol 0.05 % ointment 1 applic topical BID PRN Rx Instructions: APPLY SPARINGLY TO AFFECTED AREA albuterol sulfate 90 mcg/actuation HFA aerosol inhaler 2 puff inhalation Q6H PRN (Reason: shortness of breath or wheezing) Qty: 8.5 3RF tobramycin 0.3 % drops 1 drp ophthalmic (eye) QID Qty: 5 0RF fexofenadine [[facility]] 180 mg tablet 180 mg PO Q24H Dupixent Pen 300 mg/2 mL pen injector subcut tacrolimus 0.1 % ointment topical Qvar RediHaler 40 mcg/actuation HFA aerosol breath activated inhalation Follow Up/Referrals: Provider,Not a Local [Primary Care Provider] - Stand Alone Forms: Green [employer] Info Instructions
[2024-03-11 23:54] VITALS: BP 125/78; PULSE 71; RESP 18; TEMP 36.9; O2SAT 99
== END 2024-03-11 23:55 | disposition home or self-care (01) ==
PROVIDERS: Emergency Provider Emergency Medicine
DX: S69.92XA Unspecified injury of left wrist, hand and finger(s), initial encounter (principal)
CPT/HCPCS: 73140; 99282; 99283

== ENCOUNTER 2024-04-04 22:10 | Emergency (ER) | payer OTHER, SELFPAY ==
[2024-04-04 22:19] VITALS: BP 135/82; PULSE 80; RESP 16; TEMP 36.8; O2SAT 95; BMI 22.2
[2024-04-04 22:43] LABS: Appearance Urine Clear (Clear); Bilirubin Urine Negative (Negative); Blood Urine Negative (Negative); Color Urine Yellow (Yellow); Glucose Urine Negative (Negative); Ketones Urine Negative (Negative); Leukocyte Esterase Urine Negative (Negative); Nitrite Urine Negative (Negative); Protein Urine Negative (Negative); Urobilinogen Urine 0.2 (0.2-1.0); pH Urine 6.5 (5.0-8.5)
[2024-04-04 22:50] LABS: Amphetamine Screen Urine Negative (Negative); Barbiturate Screen Urine Negative (Negative); Benzodiazepines Screen Urine Negative (Negative); Cannabinoid Screen Urine Negative (Negative); Cocaine Screen Urine Negative (Negative); Methadone Screen Urine Negative (Negative); Methamphetamines Screen Urine Negative (Negative); Opiate Screen Urine Negative (Negative); Oxycodone Screen Urine Negative (Negative); Phencyclidine Screen Urine Negative (Negative); Tricyclic Antidepressant Urine Negative (Negative)
[2024-04-04 23:14] LABS: RBC Urine 0-2 (0-2); Squamous Epithelial Cell Urine Few (None-Few); WBC Urine 0-2 (0-5)
--- NOTE | 2024-04-04 23:34 | ED_ITS ---
HPI - Syncope General Chief Complaint: Syncope/Fainted Stated Complaint: Seizure Time Seen by Provider: 04/04/24 23:19 History of Present Illness HPI narrative: This 24-year-old female comes in with her sister because of a syncopal event that occurred just prior to arrival. The patient called her sister stating that she was not feeling well. Her sister came into the room and saw her on the floor with some involuntary movements and looking pale. Very soon after this she recovered and awoke and responded normally. The patient and her sister was wondering if this was a seizure. The patient states that she was feeling some lightheadedness and did not feel well prior to this. She is reporting some mild chest discomfort currently and states that this is reproduced when taking a deep breath or palpating on her anterior chest. She is not on any new medications. Related Data Home Medications ?Medication ?Instructions ?Recorded ?Confirmed fexofenadine 180 mg tablet 180 mg PO Q24H 01/31/22 03/30/24 ([facility]ine Allergy) clobetasol 0.05 % topical ointment 1 applic topical BID PRN 02/26/22 03/30/24 ergocalciferol (vitamin D2) 10 mcg 400 unit PO DAILY 02/26/22 03/30/24 (400 unit) tablet dupilumab 300 mg/2 mL subcutaneous mg subcut 10/08/22 03/30/24 pen injector (Dupixent) beclomethasone dipropionate 40 inhalation 07/08/23 03/30/24 mcg/actuation HFA breath activated aerosol (Qvar RediHaler) tacrolimus 0.1 % topical ointment topical 07/08/23 03/30/24 Previous Rx's ?Medication ?Instructions ?Recorded albuterol sulfate 90 mcg/actuation 2 puff inhalation Q6H PRN 02/26/22 aerosol inhaler shortness of breath or wheezing #8.5 grams tobramycin 0.3 % eye drops 1 drp ophthalmic (eye) QID #5 mL 09/26/23 Allergies Allergy/AdvReac Type Severity Reaction Status Date / Time potato Allergy Mild Rash Verified 04/04/24 22:23 adhesive Allergy Unknown Rash Verified 04/04/24 22:23 cyclobenzaprine Allergy Unknown stomach Verified 04/04/24 22:23 pain cat dander Allergy Verified 04/04/24 22:23 Review of Systems Status of ROS: Reports: 10 or more systems reviewed and unremarkable except as noted in History and below Narrative: Constitutional: No fevers, no weight gain or loss. Eyes: No discharge. No vision changes. HENT: No congestion, no sore throat, no ear pain. Cardiovascular: No chest pain, no palpitations. Respiratory: No shortness of breath, no wheezes, no cough. Gastrointestinal: No abdominal pain, no vomiting, no diarrhea. Genitourinary: No dysuria, no hematuria. Musculoskeletal: Normal range of motion. Skin: No rashes, no pruritis. Neurological: No weakness, sensory change, speech change. Endo/Heme/Allergies: No bruising or bleeding. No polydipsia. Pysch: no suicidality, no anxiety, no insomnia. All other systems reviewed and are negative. 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 (ICD-10) Surgical History H/O lymph node biopsy ?Z98.890 - Other specified postprocedural states (ICD-10) History of oral surgery ?Z98.890 - Other specified postprocedural states (ICD-10) No significant past surgical history Social History Smoking Status: Never smoker Do you use any of these nicotine containing products: None Second hand tobacco smoke exposure: No How often do you have a drink containing alcohol: 2-4 times a month How often do you have six or more drinks on one occasion: Never AUDIT-C Alcohol total score: 2 Non-prescribed substance use: denies use Caffeine: Yes (DAILY) Are you using contraception or practicing any form of control: No Exam Narrative: Exam Narrative: Constitutional: Well-developed, well-nourished, no acute distress. HEENT: Normocephalic, atraumatic. Neck: Normal range of motion. Nontender. Supple. Heart: Regular. No murmurs. Normal rate. Intact distal pulses. Lungs: Clear to auscultation. No chest discomfort. No wheezes, rhonchi, or rales. Abdomen: Normal bowel sounds. Nontender. No rebound tenderness. Genitalia: Deferred. Back: No midline tenderness. Normal range of motion. Extremities: Normal range of motion. No injury. Skin: Intact. No rash. Warm. No erythema or pallor. Neurologic: No altered sensation. No weakness. Alert and oriented. Psychiatric: No suicidality. No anxiety or depression. No insomnia. Nursing notes and vitals signs are reviewed. Const: Vital Signs, click to edit/add: Vital Signs - 24 hr 04/04/24 22:19 Temperature 98.2 F Pulse Rate [Right Pulse Oximeter] 80 Respiratory Rate 16 Blood Pressure [Ri ght Upper Arm] 135/82 Pulse Oximetry 95 Oxygen Delivery Me thod Room Air Course Vital Signs Vital signs: Initial Vital Signs Temperature 98.2 F 04/04/24 22:19 Temperature Source Temporal Artery Scan 04/04/24 22:19 Pulse Rate 80 04/04/24 22:19 Pulse Rhythm Regular 04/04/24 22:19 Respiratory Rate 16 04/04/24 22:19 Blood Pressure 135/82 04/04/24 22:19 Blood Pressure Mean 99 04/04/24 22:19 Blood Pressure Position Sitting 04/04/24 22:19 Pulse Oximetry 95 04/04/24 22:19 Oxygen Delivery Method Room Air 04/04/24 22:19 Vital Signs Temperature 98.2 F 04/04/24 22:19 Pulse Rate 80 04/04/24 22:19 Respiratory Rate 16 04/04/24 22:19 Blood Pressure 135/82 04/04/24 22:19 Pulse Oximetry 95 04/04/24 22:19 Oxygen Delivery Method Room Air 04/04/24 22:19 Temperature 98.2 F 04/04/24 22:19 Pulse Rate 80 04/04/24 22:19 Respiratory Rate 16 04/04/24 22:19 Blood Pressure 135/82 04/04/24 22:19 Pulse Oximetry 95 04/04/24 22:19 Oxygen Delivery Method Room Air 04/04/24 22:19 MDM - Syncope MDM Narrative Medical decision making narrative: This patient comes in because of a syncopal event as described above. There was some involuntary movements that occurred at the time her sister observe this but she recovered rather quickly. There were prodrome symptoms of lightheadedness and no postictal symptoms so this is clearly not typical of a seizure. This in itself was reassuring to the patient and her sister. Her exam currently is normal. I did discuss lab and imaging options and these were declined in a process of shared decision making. The patient was able to get up and ambulate normally and is okay to be discharged. I did describe various circumstances that can occur to cause lightheadedness and even loss of consciousness. Lab Data Labs: Lab Results 04/04/24 Range/Units 22:31 Urine Color Yellow (Yellow) Urine Appearance Clear (Clear) Urine pH 6.5 (5.0-8.5) Ur Specific [place] 1.010 (1.000-1.030) Urine Protein Negative (Negative) Urine Glucose (UA) Negative (Negative) Urine Ketones Negative (Negative) Urine Blood Negative (Negative) Urine Nitrite Negative (Negative) Urine Bilirubin Negative (Negative) Urine Urobilinogen 0.2 (0.2-1.0) Ur Leukocyte Esterase Negative (Negative) Urine RBC 0-2 (0-2) Urine WBC 0-2 (0-5) Ur Squamous Epith Cells Few (None-Few) Urine Bacteria None (None) Urine Opiates Screen Negative (Negative) Ur Oxycodone Screen Negative (Negative) Urine Methadone Screen Negative (Negative) Ur Barbiturates Screen Negative (Negative) U Tricyclic Antidepress Negative (Negative) Ur Phencyclidine Scrn Negative (Negative) Ur Amphetamines Screen Negative (Negative) U Methamphetamines Scrn Negative (Negative) U Benzodiazepines Scrn Negative (Negative) Urine Cocaine Screen Negative (Negative) U Marijuana (THC) Screen Negative (Negative) Ur Drug Screen Comment See Note Discharge Plan Discharge Clinical Impression: Syncope Patient Disposition: Home w/ Parent or Adult Condition: Improved Additional Instructions: Continue current plans. Use [id number] medicines as needed and directed. Follow up with MD return if worsening. Prescriptions: No Action ergocalciferol (vitamin D2) 10 mcg (400 unit) tablet 400 unit PO DAILY clobetasol 0.05 % ointment 1 applic topical BID PRN Rx Instructions: APPLY SPARINGLY TO AFFECTED AREA albuterol sulfate 90 mcg/actuation HFA aerosol inhaler 2 puff inhalation Q6H PRN (Reason: shortness of breath or wheezing) Qty: 8.5 3RF tobramycin 0.3 % drops 1 drp ophthalmic (eye) QID Qty: 5 0RF fexofenadine [Christine Allergy] 180 mg tablet 180 mg PO Q24H Dupixent Pen 300 mg/2 mL pen injector subcut tacrolimus 0.1 % ointment topical Qvar RediHaler 40 mcg/actuation HFA aerosol breath activated inhalation Follow Up/Referrals: Provider,Not a Local [Primary Care Provider] - Stand Alone Forms: Are You a Humanth Info Instructions
--- OUTSIDE RECORDS SUMMARY | 2024-04-04 23:41 | XMS_ITS | Clinical Summary ---
Author Organization [facility] Address [address], [place] [address] Care Team Providers Care Public Records Officer Name Role Phone No Primary/Referring, Phy Primary Care Provider Unavailable Source Comments You are receiving this document as you are listed as the primary care provider,follow-up provider, or the patient has been referred to you for consultation.This is in compliance with the Medicare and[facility] EHR Incentive Program,which states Providers who transition their patient to another setting of careor provider of care or refers their patient to another provider of care shouldprovide summary care record for each transition of care or referral. [employer] Allergies No known active allergies Medications Medication [...] Comments Blood Pressure 116/62 04/23/2023 5:15 AM LOG [facility] Pulse 101 04/23/2023 5:15 AM LOG [facility]ELER Temperature 37 C (98.6 F) 04/23/2023 12:15 AM LOG PEELER Respiratory Rate 16 04/23/2023 5:15 AM LOG PEELER Oxygen Saturation 98% 04/23/2023 5:15 AM LOG PEELER Inhaled Oxygen Concentration - - Weight 46 [...] on patient's age to complete this topic Infant RSV Aged Out No longer eligi ble based on patient's age to complete this topic Care Teams Public Records Officer Relationship Specialty Start Date End Date No Primary/Referring, Phy PCP - General 04/22/23
--- OUTSIDE RECORDS SUMMARY | 2024-04-04 23:42 | XMS_ITS | Encounter Summary ---
Author Organization [facility] Address [address] [place] [address] Care Team Providers Care Transportation Operations Manager Name Role Phone Jose Martin Ramirez M.D. Primary Care Provider [phone] Reason for Referral * Outpatient (Routine) - Closed Specialty Diagnoses / Procedures Referred By Safia t Referred To Contact Diagnoses Bunion Left Bunion Right Procedures DX Foot Bilateral 3+ Views Lisa Tracy D.O. [address] [place] [address] Phone: tel: fax: [facility] Referral ID Status Reason Start Date Expiration Date Visits Re quested Visits Authorized [id number] Closed 04/01/2024 04/01/2025 1 [address] [facility] Reason for Visit * Outpatient (Routine) - Closed Specialty Diagnoses / Procedures Referred By Contac t Referred To Contact Diagnoses Bunion Left Bunion Right Procedures DX Foot Bilateral 3+ Views Lisa Tracy D.O. [address] [place] [address] Phone: tel: fax: [facility] Referral ID Status Reason Start Date Expiration Date Visits Re quested Visits Authorized [id number] Closed 04/01/2024 04/01/2025 1 1 Encounter Details Date Type Department Care Team (Latest Contact Info) Description 04/01/2024 11:06 AM [facility] - 04/01/2024 11:59 PM [facility] Hospital Encounter Department of Radiology, [facility], in [place], [place] [address] [place] [address] Lisa Tracy D.O. [address] [place] [address] Bunion Left; Bunion Right Discharge Disposition: Home or Self Care Social History Tobacco Use Types Packs/Day Years Used Date Smoking Tobacco: Some Days Cigarettes Passive Smoke Exposure: Past Smokeless Tobacco: Never Comments:Vape Alcohol Use Standard Drinks/Week Comments Not Currently 0 (1 standard drink = 0.6 oz pure alcohol) Have alcohol a couple times a month [facility] Utilities Answer Date Recorded In the past 12 months has [employer], oil, or water [employer] threatened to shut off services in your [...] How often do you attend chur or confucianist services? Never 08/29/2022 Do you belong to any clubs o r organizations such as pentecostalism groups, unions, fraternal or athletic groups, or [...] 01/19/2023 PHQ-2 Answer Date Recorded PHQ-2 Score 0 04/01/2024 [facility] - Occupational Stress Questionnaire Answer Date [...] Recor ded PHQ-9 Total Score (max 27) 0 04/01 Nutrition Answer Date Recorded On average, how [...] living situation today? I have a [facility] place to live 09/10/2023 Education Answer Date Recorded What is the highest level of school you have completed or the highest degree you have received? 12th grade 08/29/2022 Comments Unknown Sex and Gender Information Value Date Recorded Sex Assigned at Female 07/26/2017 10:00 AM CDT Legal Sex Female 10:13 PM [facility] Gender Identity Female 07/26/2017 10:00 AM CDT [...] 180 mg tablet 180 mg daily. 01/31/2022 fluorometholone (FML) 0.1 % ophthalmic suspension Administer 1 drop into both eyes 2 (two) times a day for 14 days, THEN 1 drop daily for 14 days, THEN 1 drop every other day. 5 mL 1 02/05/2024 fluticasone propionate (FLONASE) 50 mcg/actuation nasal sprayIndications: [...] as of this encounter Plan of Treatment Upcoming Encounters Date Type Department Care Team (Late st Contact Info) Description 05/04/2024 9:45 AM [facility] Comprehensive Visit Department of Orthopedic Surgery in [place], [place] [address] [place] [phone] Marine Ruiz D.P.[place] [address] [place] [phone] Discharge Disposition: Home or Self Care documented as of this encounter Procedures Procedure Name Priority Date/Time Associated Diagnosis Comments DX FOOT BILATERAL 3+ VIEWS RAD - Routine (most inpatients and all outpatients) 04/01/2024 11:29 AM [facility] Bunion Left Bunion Right documented in this encounter Results * DX Foot Bilateral 3+ Views (04/01/2024 11:29 AM [facility]) Anatomical Region Laterality Modality Lower Extremity, Foot, Muscu loskeletal RST LOS, Musculoskeletal ARZ LOS, Muskuloskeletal FLA LOS Bilateral Digit al Radiography Impressions 04/01/2024 3:58 PM [facility] 1. No acute bilateral foot osseous abnormality. 2. 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 Bone mineralization is within normal limits. The visualized joint spaces are preserved. First metatarsus varus with hallux valgus is seen in both feet, left greater than right. Procedure Note Shayne Sanchez M.D. - 04/01/2024 EXAM: DX FOOT BILATERAL 3+ VIEWS COMPARISON: None FINDINGS: There is no acute bilateral foot osseous abnormality. Bonemineralization is within normal limits. The visualized joint spaces arepreserved. First metatarsus varus with hallux valgus is seen in both feet,left greater than right. IMPRESSION: 1. No acute bilateral foot osseous abnormality. 2. 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 IMG DIAGNOSTIC IMAGING PROCEDU RES Final Result documented in this encounter Visit Diagnoses Diagnosis Bunion Left Bunion Right documented in this encounter Additional Health Concerns Assessment Noted Time PHQ-9 Depression Total Score: 0 04/01/20 8:57 AM [facility] documented as of this encounter Care Teams Transportation Operations Manager Relationship Specialty Start Date End Date Jose Martin Ramirez M.D. [address] [place] [phone] PCP - General 09/27/23 documented as of this encounter
--- OUTSIDE RECORDS SUMMARY | 2024-04-04 23:42 | XMS_ITS | Referral Summary ---
Author Organization [facility] Address [address] [place] [address] Care Team Providers Care Hat Band Attacher Name Role Phone Jose Martin Ramirez M.D. Primary Care Provider [phone] Source Comments Patient records contain information from all sites at [facility]. For routine questions regarding patient records, call [phone] during business hours, M-F 8:00 AM - 5:00 PM Central Time. Record requests for emergency care only can be directed to [phone] at any time.[facility] Encounters Date Type Department Care Team Description 04/01/2024 11:06 AM HYDRAULIC MINER BLASTING - 04/01/2024 11:59 PM HYDRAULIC MINER BLASTING Hospital Encounter Department of Radiology, [facility], in [place], [place] [address] [place] [address] Lisa Tracy D.O. Bunion Left; Bunion Right Discharge Disposition: Home or Self Care 04/01/2024 10:30 AM HYDRAULIC MINER BLASTING Office Visit Department of Family Medicine in [place], [place] [address] [place] [phone] Lisa Tracy D.O. Screening Lipid (Primary Dx); Screening Test Laboratory; Human Immunodeficiency Virus Screening; Screening For Venereal Disease; Bunion Left; Bunion Right; Hypokalemia; Screening Examination Diabetes Mellitus 02/19/2024 3:45 PM CDT Office Visit Department of Ophthalmology in [place], [place] [address] [place] [address] Adrienne Garza M.D. 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 Med Refill from Last 3 Months Allergies Active Allergy [...] g 12 3 Active Additional Information Patient taking differently:2 spray each nostrilAs needed, Reported on 04/01/2024 albuterol 90 mcg/actuation inhalerIndicatio ns:Asthma Mild Intermittent [...] Patient taking differently:1 Application topical 2 times daily,And eyelids, Reported on 04/01/2024 triamcinolone (KENALOG) 0.5 % cream Apply topically [...] 0,1999,1998 Influenza, Injectable, Mdck, Preservative Free, Quadrivalent 01/03/2024,01/08/2023,01/26/2018 Influenza, Injectable, Quadrivalent 01/24/2019,1 MCV4 (Menactra)(Discontinued) 07/15/2020 MMR 01/19/2004,02/13/2000 MMRV 01/19/2004,02/14/2000 PCV13 09/19/2000,02/14/2000,1999 PCV20 04/01/2024 PCV7 (discontinued) 09/19/2000,02/13/2000,1999 SARS-COV-2 (COVID-19) - MODERNA(Discontinued) 08/31/2020,08/03/2020 Tdap 04/01/2024,12/06/2010 SARAH 12/06/2010,01/19/2004,02/14/2000 influenza vaccine quad (FLUZONE/FLUARIX) (6 [...] Have alcohol a couple times a month [facility] [employer] Answer Date Recorded In the past 12 months has [employer], [employer], or water [employer] threatened to shut off services in your [...] any clubs o r organizations such as yarsani groups, unions, fraternal or athletic groups, or [...] Answer Date Recorded PHQ-2 Score 0 04/01/2024 [facility] - Occupational [...] Date Recorded Dental: Regular Dentist Yes 08/30/19 23 Employment Answer Date Recorded Employment status Employed and actively working without restrictions 09/10/2023 Housing Stability Answer Date Recorded What is your living situation today? I have a rachel place to live 09/10/2023 Education Answer Date Recorded What is the highest level of school you have completed or the highest degree you have received? 12th grade 08/29/2022 Comments Unknown Sex and Gender Information Value Date Recorded Sex Assigned at Female 07/26/2017 10:00 AM CDT Legal Sex Female 10:13 PM HYDRAULIC MINER BLASTING Gender Identity Female 07/26/2017 10:00 AM CDT Sexual Orientation Straight 07/26/2017 10 :00 AM CDT Last Filed Vital Signs Vital Sign Reading Time Taken Comments Blood Pressure 116/75 04/01/2024 10:27 AM HYDRAULIC MINER BLASTING Pulse 97 04/01/2024 10:27 AM HYDRAULIC MINER BLASTING Temperature 36.9 C (98.4 F) 04/01/2024 10:27 AM HYDRAULIC MINER BLASTING Respiratory Rate 16 11/28/2022 2:37 PM CDT Oxygen Saturation 97% 04/01/2024 10:27 AM HYDRAULIC MINER BLASTING Inhaled Oxygen Concentration - - Weight 64.6 kg (142 lb 6.4 oz) 04/01/2024 10:27 AM HYDRAULIC MINER BLASTING Height 171 cm (5' 7.32) 04/01/2024 10:27 AM HYDRAULIC MINER BLASTING Body Mass Index 22.09 04/01/2024 10:27 AM HYDRAULIC MINER BLASTING Plan of Treatment Upcoming Encounters Date Type Department Care Team (Late st Contact Info) Description 05/04/2024 9:45 AM HYDRAULIC MINER BLASTING Comprehensive Visit Department of Orthopedic Surgery in [place], [place] [address] [place] [phone] Marine Ruiz D.P.[place] [address] [place] [phone] Discharge Disposition: Home or Self Care Medical Devices Implanted Type Area Stain Wiper Device Identifier Shelf Expiration Date Model / Serial / Lot Mirena- [id number] Implanted:Qty : 1 on 05/21/2023 by Amy Vernon APRN, C.N.P., M.S.N. Intrauterine Device Uterus 05/21/2031 / / [id number] Procedures Procedure Name Priority Date/Time Associated Diagnosis Comments DX FOOT BILATERAL 3+ VIEWS RAD - Routine (most inpatients and all outpatients) 04/01/2024 11:29 AM HYDRAULIC MINER BLASTING Bunion Left Bunion Right HEMOGLOBIN A1C, B Routine 04/01/2024 11:17 AM HYDRAULIC MINER BLASTING Screening Examination Diabetes Mellitus LIPID PANEL, S Routine 04/01/2024 11:17 AM HYDRAULIC MINER BLASTING Screening Lipid COMPREHENSIVE METABOLIC PANEL, S/P Routine 04/01/2024 11:17 AM HYDRAULIC MINER BLASTING Hypokalemia HCV AB SCRN W/REFLEX TO HCV PCR, S Routine 04/01/2024 11:17 AM HYDRAULIC MINER BLASTING Screening Test Laboratory HIV-1/-2 AG AND AB SCREEN, PLASMA Routine 04/01/2024 11:16 AM HYDRAULIC MINER BLASTING Human Immunodeficiency Virus Screening SYPHILIS TOTAL AB W/ REFLEX S Routine 04/01/2024 11:16 AM HYDRAULIC MINER BLASTING Screening For Venereal Disease CHLAMYDIA/GONORRHOE AE AMPLIFIED RNA Routine 12/24/2023 2:29 PM CDT Pelvic And Perineal Pain Surveillance Intrauterine Device Screening For Venereal Disease THINPREP SCREEN HPV REFLEX Routine 05/21/2023 4:05 PM HYDRAULIC MINER BLASTING Pap Smear Examination from Last 3 Months or Most Recently Relevant to Health Maintenance Results * DX Foot Bilateral 3+ Views (04/01/2024 11:29 AM HYDRAULIC MINER BLASTING) Anatomical Region Laterality Modality Lower Extremity, Foot, Muscu loskeletal RST LOS, Musculoskeletal ARZ LOS, Muskuloskeletal FLA LOS Bilateral Digit al Radiography Impressions 04/01/2024 3:58 PM HYDRAULIC MINER BLASTING 1. No acute bilateral foot osseous abnormality. 2. 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 IM DIAGNOSTIC IMAGING PROCEDU RES Final Result * (ABNORMAL) Lipid Panel (04/01/2024 11:17 AM HYDRAULIC MINER BLASTING) Triglycerides 44 mg/dL 04/01/2024 12:46 PM HYDRAULIC MINER BLASTING NPRG Comment: ----REFERENCE VALUE---- Normal: <150 mg/dL Borderline High: 150-199 mg/dL High: 200-499 mg/dL Very High: > or =500 mg/dL Cholesterol, Total 148 mg/dL 2023 12:46 PM HYDRAULIC MINER BLASTING NPRG Comment: ----REFERENCE VALUE---- Desirable: < 200 mg/dL Borderline High: 200 - 239 mg/dL High: > or = 240 mg/dL Cholesterol, LDL, Calculated 98 mg/dL 04/01/2024 12:46 PM HYDRAULIC MINER BLASTING NPRG Comment: ----REFERENCE VALUE---- Desirable: <100 mg/dL Above Desirable: 100-129 mg/dL Borderline High: 130-159 mg/dL High: 160-189 mg/dL Very High: >=190 mg/dL ----ADDITIONAL INFORMATION---- LDL cholesterol calculated using the Shea/NIH equation. Cholesterol, HDL 40(L) >=50 mg/dL 04/01/2024 12:46 PM HYDRAULIC MINER BLASTING NPRG Cholesterol, Non-HDL, Calculated 108 mg/dL 04/01/2024 12:46 PM HYDRAULIC MINER BLASTING NPRG Comment: ----REFERENCE VALUE---- Desirable: <130 mg/dL Above Desirable: 130-159 mg/dL Borderline High: 160-189 mg/dL High: 190-219 mg/dL Very High: > or =220 mg/dL Fasting (8 HR or more) Unknown 04/01/2024 11:17 AM HYDRAULIC MINER BLASTING NPRG Blood (Blood, Venous) 04/01/2024 11:17 AM HYDRAULIC MINER BLASTING 04/01/2024 12:05 PM HYDRAULIC MINER BLASTING us Lisa LeeO. LAB BLOOD ADD-ON Final Result [facility] [address] [place] [address], [facility] NPRG [facility] [address] [place] [address] * HCV Ab Scrn w/Reflex to HCV PCR, Serum (04/01/2024 11:17 AM HYDRAULIC MINER BLASTING) HCV Ab Screen, S Negative Negative 04/01/2024 2:41 PM HYDRAULIC MINER BLASTING TO Blood (Blood, Venous) 04/01/2024 11:17 AM HYDRAULIC MINER BLASTING 04/01/2024 2:10 PM HYDRAULIC MINER BLASTING Narrative [facility] - 04/01/2024 2:41 PM HYDRAULIC MINER BLASTING Specimen Information: Specimen ID: [id number] Specimen Type: Blood Specimen Collection Start Date: 04/01/2024 11:17 AM Specimen Received Date: 04/01/2024 2:10 PM Specimen ID: [id number] Specimen Type: Blood Specimen Collection Start Date: 04/01/2024 11:17 AM Specimen Received Date: 04/01/2024 2:14 PM us Lisa Tracy D.O. LAB MICROBIOLOGY - BLOOD ORDER RENETTA Final Result Performing Organization Address City/[facility]/ZIP Co de Phone Number [facility] [address] [place] [address], [place] MKTO [facility] in [place] [address] [place] [address] * Hemoglobin A1c (04/01/2024 11:17 AM HYDRAULIC MINER BLASTING) Hemoglobin A1c, B 5.4 4.2 - 5.6 % 04/01/2024 12:40 PM HYDRAULIC MINER BLASTING NPRG Blood (Blood, Venous) 04/01/2024 11:17 AM HYDRAULIC MINER BLASTING 04/01/2024 12:05 PM HYDRAULIC MINER BLASTING us Lisa Tracy D.O. LAB BLOOD ADD-ON Final Result [facility] [address] [place] [address], [place] NPR[facility] [address] [place] [address] * (ABNORMAL) Comprehensive Metabolic Panel (04/01/2024 11:17 AM HYDRAULIC MINER BLASTING) Potassium, P 4.0 3.6 - 5.2 mmol/L 04/01/2024 12:46 PM HYDRAULIC MINER BLASTING NPRG Sodium, P 142 135 - 145 mmol/L 04/01/2024 12:46 PM HYDRAULIC MINER BLASTING NPRG Chloride, P 106 98 - 107 mmol/L 04/01/2024 12:46 PM HYDRAULIC MINER BLASTING NPRG Bicarbonate, P 26 22 - 29 mmol/L 04/01/2024 12:46 PM HYDRAULIC MINER BLASTING NPRG Anion Gap, P 10 7 - 15 04/01/2024 12:46 PM HYDRAULIC MINER BLASTING NPRG BUN (Blood Urea Nitrogen), P 10 6 - 21 mg/dL 04/01/2024 12:46 PM HYDRAULIC MINER BLASTING NPRG Creatinine 0.69 0.59 - 1.04 mg/dL 04/01/2024 12:46 PM HYDRAULIC MINER BLASTING NPRG Estimated GFR (eGFR) >90 >=60 mL/min/BS A 04/01/2024 12:46 PM HYDRAULIC MINER BLASTING NPRG Comment: Estimated GFR calculated using the 2020 CKD_EPI creatinine equation. Calcium, Total, P 10.0 8.6 - 10.0 mg/dL 04/01/2024 12:46 PM HYDRAULIC MINER BLASTING NPRG Glucose, P 93 70 - 140 mg/dL 04/01/2024 12:46 PM HYDRAULIC MINER BLASTING NPRG Protein, Total, P 8.2(H) 6.3 - 7.9 g/dL 04/01/2024 12:46 PM HYDRAULIC MINER BLASTING NPRG Albumin, P 4.5 3.5 - 5.0 g/dL 04/01/2024 12:46 PM HYDRAULIC MINER BLASTING NPRG Aspartate Aminotransferase (AST), P 24 8 - 43 U/L 04/01/2024 12:46 PM HYDRAULIC MINER BLASTING NPRG Alkaline Phosphatase, P 84 35 - 104 U/L 04/01/2024 12:46 PM HYDRAULIC MINER BLASTING NPRG Alanine Aminotransferase (ALT), P 17 7 - 45 U/L 04/01/2024 12:46 PM HYDRAULIC MINER BLASTING NPRG Bilirubin, Total, P 0.3 0.0 - 1.2 mg/dL 04/01/2024 12:46 PM HYDRAULIC MINER BLASTING NPRG Blood (Blood, Venous) 04/01/2024 11:17 AM HYDRAULIC MINER BLASTING 04/01/2024 12:05 PM HYDRAULIC MINER BLASTING us Lisa Tracy D.O. LAB BLOOD ADD-ON Final Result [facility] [address] [place] [address], [place] NPRG [facility] [address] [place] [address] * HIV-1/-2 Ag and Ab Screen, Plasma (04/01/2024 11:16 AM HYDRAULIC MINER BLASTING) HIV Ag/Ab Screen, P Negative Negative 04/01/2024 4:49 PM HYDRAULIC MINER BLASTING [facility] Comment: Negative result does not rule out HIV infection. If exposure to HIV infection occurred <14 days ago, contact the laboratory to request addition of HIV-1/HIV-2 RNA detection, Plasma (HIP12). HIV-1 p24 Ag Screen, P Negative Negative 04/01/2024 4:49 PM HYDRAULIC MINER BLASTING [facility] Comment: Negative result does not rule out HIV infection. If exposure to HIV infection occurred <14 days ago, contact the laboratory to request addition of HIV-1/HIV-2 RNA detection, Plasma (HIP12). HIV-1 Ab Screen, P Negative Negative 04/01/2024 4:49 PM HYDRAULIC MINER BLASTING [facility] Comment: Negative result does not rule out HIV infection. If exposure to HIV infection occurred <14 days ago, contact the laboratory to request addition of HIV-1/HIV-2 RNA detection, Plasma (HIP12). HIV-2 Ab Screen, P Negative Negative 04/01/2024 4:49 PM HYDRAULIC MINER BLASTING [facility] Comment: Negative result does not rule out HIV infection. If exposure to HIV infection occurred <14 days ago, contact the laboratory to request addition of HIV-1/HIV-2 RNA detection, Plasma (HIP12). Blood (Blood, Venous) 04/01/2024 11:16 AM HYDRAULIC MINER BLASTING 04/01/2024 3:08 PM HYDRAULIC MINER BLASTING Lisa B Viere D.O. LAB MICROBIOLOGY - BLOOD ORDER RENETTA Final Result Performing Organization Address [facility] Co de Phone Number [address] [address], [facility] in [address] [address] * Syphilis Total Antibody with Reflex, S ([facility]/ARZ) (04/01/2024 11:16 AM HYDRAULIC MINER BLASTING) Syphilis Total Ab w/ Reflex Nonreactive Nonreactive 04/01/2024 4:10 PM HYDRAULIC MINER BLASTING [facility] Comment: No serologic evidence of infection with T. pallidum (syphilis). Repeat testing may be considered in patients with suspected acute or primary syphilis in 2-4 weeks. For additional information on interpretation of the syphilis reverse algorithm and results, see: [email or web address] Blood (Blood, Venous) 04/01/2024 11:16 AM HYDRAULIC MINER BLASTING 04/01/2024 3:08 PM HYDRAULIC MINER BLASTING us Lisa B Viere D.O. LAB BLOOD ADD-ON Final Result Performing Organization Address [facility]/ZIP Co de Phone Number [facility] [address] [place] [address], [facility] in [address] [address] * Chlamydia / Gonorrhoeae Amplified RNA (12/24/2023 2:29 PM CDT) Source Swab, Vagina 12/24/2023 11:42 PM CDT MKTO Chlamydia trachomatis amplified RNA Negative Negative 12/24/2023 11:42 PM CDT MKTO Source Swab, Vagina 12/24/2023 11:42 PM CDT MKTO Neisseria gonorrhoeae amplified RNA Negative Negative 12/24/2023 11:42 PM CDT MKTO Swab (Vagina) 12/24/2023 2:2 9 PM CDT 12/24/2023 4:32 PM CDT Leland Gates APRNNJoselito, M.S.N. LAB MICROBIOLOGY - GENERAL ORDERABLES Final Result Performing Organization Address [facility] Co de Phone Number [facility] [address] [place] [address], [facility] MKTO [address] [place] [address] * ThinPrep Screen HPV Reflex (05/21/2023 4:05 PM HYDRAULIC MINER BLASTING) 05/23/2023 10:34 AM HYDRAULIC MINER BLASTING [facility] Report electronically signed by Jagdeep Garland MD I verify that I have examined all relevant slides/materials for the specimen(s) and rendered or confirmed the diagnosis. 05/23/2023 10:34 AM HYDRAULIC MINER BLASTING [facility] Gross Description Received specimen in a ThinPrep vial. 05/23/2023 10:34 AM HYDRAULIC MINER BLASTING [facility] Pap Test Source Cervical/Endocervi robles 05/23/2023 10:34 AM HYDRAULIC MINER BLASTING [facility] Hormone Therapy/Contracep tives None/Not known 05/23/2023 10:34 AM HYDRAULIC MINER BLASTING [facility] Interpretation Cervical/Endocervi robles (ThinPrep): Satisfactory for Evaluation Negative for Intraepithelial Lesion or Malignancy 05/23/2023 10:34 AM HYDRAULIC MINER BLASTING [facility] Thin Prep Vial (Cervix/Endocerv ix) 05/21/2023 4:05 PM HYDRAULIC MINER BLASTING 05/22/2023 7:31 AM HYDRAULIC MINER BLASTING Libby Gates APRN.N.Kanu., M.S.N. LAB PAP PATH DX ORDERABLES Final Result Performing Organization Address City/[facility] Co de Phone Number [facility] [address] [place] [address], [place] [facility] [address] [facility] [address] [place] [address] from Last 3 Months or Most Recently Relevant to Health Maintenance [facility] [employer] Care Teams Hat Band Attacher Relationship Specialty Start Date End Date Jose Martin Ramirez M.D. [address] [place] [phone] PCP - General 09/27/23
--- OUTSIDE RECORDS SUMMARY | 2024-04-04 23:42 | XMS_ITS | Clinical Summary ---
Author Organization [facility] Address [address] [place] [address] Care Team Providers Care Fresh Foods Technician Name Role Phone Jose Martin Ramirez M.D. Primary Care Provider [phone] Source Comments Patient records contain information from all sites at [facility]. For routine questions regarding patient records, call [phone] during business hours, M-F 8:00 AM - 5:00 PM Central Time. Record requests for emergency care only can be directed to [phone] at any time.[facility] Allergies Active Allergy Reactions Criticality Noted [...] Department Care Team Description 04/01/2024 11:06 AM TELETYPESETTER MONITOR - 04/01/2024 11:59 PM TELETYPESETTER MONITOR Hospital Encounter Department of Radiology, [facility], in [place], [place] [address] [place] [address] Lisa Tracy D.O. Bunion Left; Bunion Right Discharge Disposition: Home or Self Care 04/01/2024 10:30 AM TELETYPESETTER MONITOR Office Visit Department of Family Medicine in [place], [place] [address] [place] [address] Lisa Tracy D.O. Screening Lipid (Primary Dx); Screening Test Laboratory; Human Immunodeficiency Virus Screening; Screening For Venereal Disease; Bunion Left; Bunion Right; Hypokalemia; Screening Examination Diabetes Mellitus 02/19/2024 3:45 PM CDT Office Visit Department of Ophthalmology in [address] [phone] Adrienne Garza M.D. Keratoconjunctivitis Sicca Not Specified As Sjogrens Bilateral (Primary Dx) 02/04/2024 Refill Department of Ophthalmology in [place], [place] [address] [place] [address] Adrienne Garza M.D. Med Refill from Last 3 Months Immunizations Name Administration Dates Next Due 9vHPV 02/20/2021,09/14/2020,07/15/2020 DTaP (Daptacel) 01/19/2004, 1,1999,1999,1999 DTaP (Infanrix, Tripedia) 01/19/2004,,1999,1999,1999 HepB Pediatric/Adolescent 02/14/2000,1999, 1999 HepB, Unspecified 1999 Hib (PRP-OMP) (PedvaxHIB) 1999 Hib (PRP-T) (ACTHIB, HIBERIX) 1999,1998 Hib, Unspecified 02/14/2000,1999, 9 Hib-HepB 02/14/2000,1999 IPV 01/19/2004, 0,1999,1998 Influenza, Injectable, Mdck, Preservative Free, Quadrivalent 01/03/2024,01/08/2023,01/26/2018 Influenza, Injectable, Quadrivalent 01/24/2019,1 MCV4 (Menactra)(Discontinued) 07/15/2020 MMR 01/19/2004,02/13/2000 MMRV 01/19/2004,02/14/2000 PCV13 09/19/2000,02/14/2000,1999 PCV20 04/01/2024 PCV7 (discontinued) 09/19/2000,02/13/2000,1999 SARS-COV-2 (COVID-19) - MODERNA(Discontinued) 08/31/2020,08/03/2020 Tdap 04/01/2024,12/06/2010 SARAH 12/06/2010,01/19/2004,02/14/2000 influenza vaccine quad (FLUZONE/FLUARIX) (6 months and older)(PF) 01/28/2022,01/13/2021,02/26/2020 Family History Medical History Relation Name Comments Alcohol abuse Father carlitos sanchez Psoriasis Father's Brother Hyperlipidemia Maternal Grandfather laurita bañuelos Lung cancer Maternal Grandfather laurita bañuelos Other cancer Maternal Grandfather laurita bañuelos bone Prostate cancer Maternal Grandfather laurita bañuelos Skin cancer Maternal Grandfather laurita bañuelos Hypertension Maternal Grandmother jumana bañuelos Obesity Maternal Grandmother jumana bañuelos Anesthesia problems Mother neida lopez Causes vomiting Psoriasis Mother neida lopez Sleep apnea Mother neida lopez Psoriasis Mother's Brother Diabetes Paternal Grandfather adelso sanchez Asthma Sister 1 [employer] Psychiatric Sister 1 [employer] Rhinitis Sister 1 [employer] ADD Sister 2 flora sanchez Obesity Sister 2 flora sanchez ADD Sister 3 eri heimsness Relation Name Status Comments Father carlitos sanchez Father's Brother Maternal Grandfather laurita bañuelos Maternal Grandmother jumana bañuelos Mother neida lopez Mother's Brother Paternal Grandfather adelso sanchez Sister 1 [employer] Heimsness Sister 2 flora sanchez Sister 3 eri heimsness Social History Tobacco Use Types Packs/Day Years Used Date Smoking Tobacco: Some Days Cigarettes Passive Smoke Exposure: Past Smokeless Tobacco: Never Tobacco Cessation:Ready to Q uit: Not Asked; Counseling Given: Not Answered Comments:Vape Alcohol Use Standard Drinks/Week Comments Not Currently 0 (1 standard drink = 0.6 oz pure alcohol) Have alcohol a couple times a month [facility] Utilities Answer Date Recorded In the past 12 months has e [employer], oil, or water [employer] threatened to shut off services in your [...] often do you attend chur ch or sabianist services? Never 08/29/2022 Do you belong to any clubs o r organizations such as anabaptist groups, unions, fraternal or athletic groups, or [...] Answer Date Recorded PHQ-2 Score 0 04/01/2024 [facility] of Occupat ional Health - Occupational Stress [...] your living situation today? I have a [facility] place to live 09/10/2023 Education Answer Date Recorded What is the highest level of school you have completed or the highest degree you have received? 12th grade 08/29/2022 Comments Unknown Sex and Gender Information Value Date Recorded Sex Assigned at Female 07/26/2017 10:00 AM CDT Legal Sex Female 10:13 PM TELETYPESETTER MONITOR Gender Identity Female 07/26/2017 10:00 AM CDT Sexual Orientation Straight 07/26/2017 10 :00 AM CDT Last Filed Vital Signs Vital Sign Reading Time Taken Comments Blood Pressure 116/75 04/01/2024 10:27 AM TELETYPESETTER MONITOR Pulse 97 04/01/2024 10:27 AM TELETYPESETTER MONITOR Temperature 36.9 C (98.4 F) 04/01/2024 10:27 AM TELETYPESETTER MONITOR Respiratory Rate 16 11/28/2022 2:37 PM CDT Oxygen Saturation 97% 04/01/2024 10:27 AM TELETYPESETTER MONITOR Inhaled Oxygen Concentration - - Weight 64.6 kg (142 lb 6.4 oz) 04/01/2024 10:27 AM TELETYPESETTER MONITOR Height 171 cm (5' 7.32) 04/01/2024 10:27 AM TELETYPESETTER MONITOR Body Mass Index 22.09 04/01/2024 10:27 AM TELETYPESETTER MONITOR Plan of Treatment Upcoming Encounters Date Type Department Care Team (Late st Contact Info) Description 05/04/2024 9:45 AM TELETYPESETTER MONITOR Comprehensive Visit Department of Orthopedic Surgery in [place], [place] [address] [place] [phone] Marine Ruiz D.PDomenico [address] [place] [phone] Discharge Disposition: Home or Self Care Health Maintenance Due Date Last Done Comments Asthma Action Plan 07/26/2017 COVID-19 Vaccine (5 2023- 5 season) 2024 04/04/2022, 03/21/2021, 08/31/2020, Additional history exists Asthma Control Test Questionnaire 07/01/2024 024 Asthma Management/Exacerbati on Questionnaire (AMQ/AEQ) 07/01/2024 07/01/2023 Tobacco Cessation counseling 04/01/2025 04/01/2024 Cervical/Vaginal Cancer Screening 05/21/2026 024 DTaP,Tdap,and Td Vaccines (8 - Td or Tdap) 04/01/2034 04/01/2024, 12/06/2010, 01/19/2004, Additional history exists Hepatitis B Vaccines Completed 02/14/2000, 02/14/2000, 1999, Additional history exists IPV Vaccines Completed 01/19/2004, 08/05, 1999, Additional history exists Varicella Vaccines Completed 12/06/2010, 0 01/19/2004, 01/19/2004, Additional history exists HPV Vaccines Completed 02/20/2021, 09/03, 07/15/2020 Chlamydia and Gonorrhea Screening Discontinued 024, 05/21/2023 Influenza Vaccine Completed 01/03/2024, , 01/28/2022, Additional history exists Depression Screening (Annual PHQ-2) Completed 04/01/2024, 05/16/2023 HIV Screening Completed 04/01/2024 Hepatitis C Screening Completed 04/01/2024 Pneumococcal vaccine (0-64 years) Completed 04/01/2024, 09/19/2000, 09/19/2000, Additional history exists Medical Devices Implanted Type Area Floor Associate Device Identifier Shelf Expiration Date Model / Serial / Lot Carlos- [id number] Implanted:Qty : 1 on 05/21/2023 by Amy Vernon, NATHALY, C.N.P., M.S.N. Intrauterine Device Uterus 05/21/2031 / / [id number] Procedures Procedure Name Priority Date/Time Associated Diagnosis Comments DX FOOT BILATERAL 3+ VIEWS RAD - Routine (most inpatients and all outpatients) 04/01/2024 11:29 AM TELETYPESETTER MONITOR Bunion Left Bunion Right HEMOGLOBIN A1C, B Routine 04/01/2024 11:17 AM TELETYPESETTER MONITOR Screening Examination Diabetes Mellitus LIPID PANEL, S Routine 04/01/2024 11:17 AM TELETYPESETTER MONITOR Screening Lipid COMPREHENSIVE METABOLIC PANEL, S/P Routine 04/01/2024 11:17 AM TELETYPESETTER MONITOR Hypokalemia HCV AB SCRN W/REFLEX TO HCV PCR, S Routine 04/01/2024 11:17 AM TELETYPESETTER MONITOR Screening Test Laboratory HIV-1/-2 AG AND AB SCREEN, PLASMA Routine 04/01/2024 11:16 AM TELETYPESETTER MONITOR Human Immunodeficiency Virus Screening SYPHILIS TOTAL AB W/ REFLEX S Routine 04/01/2024 11:16 AM TELETYPESETTER MONITOR Screening For Venereal Disease CHLAMYDIA/GONORRHOE AE AMPLIFIED RNA Routine 12/24/2023 2:29 PM CDT Pelvic And Perineal Pain Surveillance Intrauterine Device Screening For Venereal Disease THINPREP SCREEN HPV REFLEX Routine 05/21/2023 4:05 PM TELETYPESETTER MONITOR Pap Smear Examination from Last 3 Months or Most Recently Relevant to Health Maintenance Results * DX Foot Bilateral 3+ Views (04/01/2024 11:29 AM TELETYPESETTER MONITOR) Anatomical Region Laterality Modality Lower Extremity, Foot, Muscu loskeletal RST LOS, Musculoskeletal ARZ LOS, Muskuloskeletal FLA LOS Bilateral Digit al Radiography Impressions 04/01/2024 3:58 PM TELETYPESETTER MONITOR 1. No acute bilateral foot osseous abnormality. 2. Bilateral first metatarsus varus with hallux valgus, left greater than right Narrative 04/01/2024 3:58 PM TELETYPESETTER MONITOR EXAM: DX FOOT BILATERAL 3+ VIEWS COMPARISON: [...] varus with hallux valgus, left greater thanright Lisa [facility]EDU RES Final Result * (ABNORMAL) Lipid Panel (04/01/2024 11:17 AM TELETYPESETTER MONITOR) Pathologist [facility] Triglycerides 44 mg/dL 04/01/2024 12:46 PM [facility] NPRG Comment: ----REFERENCE VALUE---- Normal: <150 mg/dL Borderline High: 150-199 mg/dL High: 200-499 mg/dL Very High: > or =500 mg/dL Cholesterol, Total 148 mg/dL 2023 12:46 PM [facility] Comment: ----REFERENCE VALUE---- Desirable: < 200 mg/dL Borderline High: 200 - 239 mg/dL High: > or = 240 mg/dL Cholesterol, LDL, Calculated 98 mg/dL 04/01/2024 12:46 PM TELETYPESETTER MONITOR NPRG Comment: ----REFERENCE VALUE---- Desirable: <100 mg/dL Above Desirable: 100-129 mg/dL Borderline High: 130-159 mg/dL High: 160-189 mg/dL Very High: >=190 mg/dL ----ADDITIONAL INFORMATION---- LDL cholesterol calculated using the Shea/NIH equation. Cholesterol, HDL 40(L) >=50 mg/dL 04/01/2024 12:46 PM TELETYPESETTER MONITOR NPRG Cholesterol, Non-HDL, Calculated 108 mg/dL 04/01/2024 12:46 PM TELETYPESETTER MONITOR NPRG Comment: ----REFERENCE VALUE---- Desirable: <130 mg/dL Above Desirable: 130-159 mg/dL Borderline High: 160-189 mg/dL High: 190-219 mg/dL Very High: > or =220 mg/dL Fasting (8 HR or more) Unknown 04/01/2024 11:17 AM TELETYPESETTER MONITOR NPRG Blood (Blood, Venous) 04/01/2024 11:17 AM TELETYPESETTER MONITOR 04/01/2024 12:05 PM TELETYPESETTER MONITOR us Lisa Tracy D.O. LAB BLOOD ADD-ON Final Result [facility] [address] [place] [address], [facility] [address] [place] [address] * HCV Ab Scrn w/Reflex to HCV PCR, Serum (04/01/2024 11:17 AM TELETYPESETTER MONITOR) HCV Ab Screen, S Negative Negative 04/01/2024 2:41 PM TELETYPESETTER MONITOR MKTO Blood (Blood, Venous) 04/01/2024 11:17 AM TELETYPESETTER MONITOR 04/01/2024 2:10 PM TELETYPESETTER MONITOR Narrative [facility] - 04/01/2024 2:41 PM TELETYPESETTER MONITOR Specimen Information: Specimen ID: [id number] Specimen Type: Blood Specimen Collection Start Date: 04/01/2024 11:17 AM Specimen Received Date: 04/01/2024 2:10 PM Specimen ID: [id number] Specimen Type: Blood Specimen Collection Start Date: 04/01/2024 11:17 AM Specimen Received Date: 04/01/2024 2:14 PM us Lisa Tracy D.O. LAB MICROBIOLOGY - BLOOD ORDER RENETTA Final Result [facility] [address] [place] [address], [facility] MKTO [facility] [place] [address] [place] [address] * Hemoglobin A1c (04/01/2024 11:17 AM TELETYPESETTER MONITOR) Hemoglobin A1c, B 5.4 4.2 - 5.6 % 04/01/2024 12:40 PM TELETYPESETTER MONITOR NPRG Blood (Blood, Venous) 04/01/2024 11:17 AM TELETYPESETTER MONITOR 04/01/2024 12:05 PM TELETYPESETTER MONITOR us Lisa Tracy D.O. LAB BLOOD ADD-ON Final Result Performing Organization Address City/[facility]/ZIP Co de Phone Number [facility] [address] [place] [address], [facility] NPRG [facility] [address] [place] [address] * (ABNORMAL) Comprehensive Metabolic Panel (04/01/2024 11:17 AM TELETYPESETTER MONITOR) Potassium, P 4.0 3.6 - 5.2 mmol/L 04/01/2024 12:46 PM TELETYPESETTER MONITOR NPRG Sodium, P 142 135 - 145 mmol/L 04/01/2024 12:46 PM TELETYPESETTER MONITOR NPRG Chloride, P 106 98 - 107 mmol/L 04/01/2024 12:46 PM TELETYPESETTER MONITOR NPRG Bicarbonate, P 26 22 - 29 mmol/L 04/01/2024 12:46 PM TELETYPESETTER MONITOR NPRG Anion Gap, P 10 7 - 15 04/01/2024 12:46 PM TELETYPESETTER MONITOR NPRG BUN (Blood Urea Nitrogen), P 10 6 - 21 mg/dL 04/01/2024 12:46 PM TELETYPESETTER MONITOR NPRG Creatinine 0.69 0.59 - 1.04 mg/dL 04/01/2024 12:46 PM TELETYPESETTER MONITOR NPRG Estimated GFR (eGFR) >90 >=60 mL/min/BS A 04/01/2024 12:46 PM TELETYPESETTER MONITOR NPRG Comment: Estimated GFR calculated using the 2020 CKD_EPI creatinine equation. Calcium, Total, P 10.0 8.6 - 10.0 mg/dL 04/01/2024 12:46 PM TELETYPESETTER MONITOR NPRG Glucose, P 93 70 - 140 mg/dL 04/01/2024 12:46 PM TELETYPESETTER MONITOR NPRG Protein, Total, P 8.2(H) 6.3 - 7.9 g/dL 04/01/2024 12:46 PM TELETYPESETTER MONITOR NPRG Albumin, P 4.5 3.5 - 5.0 g/dL 04/01/2024 12:46 PM TELETYPESETTER MONITOR NPRG Aspartate Aminotransferase (AST), P 24 8 - 43 U/L 04/01/2024 12:46 PM TELETYPESETTER MONITOR NPRG Alkaline Phosphatase, P 84 35 - 104 U/L 04/01/2024 12:46 PM TELETYPESETTER MONITOR NPRG Alanine Aminotransferase (ALT), P 17 7 - 45 U/L 04/01/2024 12:46 PM TELETYPESETTER MONITOR NPRG Bilirubin, Total, P 0.3 0.0 - 1.2 mg/dL 04/01/2024 12:46 PM TELETYPESETTER MONITOR NPRG Blood (Blood, Venous) 04/01/2024 11:17 AM TELETYPESETTER MONITOR 04/01/2024 12:05 PM TELETYPESETTER MONITOR us Lisa Tracy D.O. LAB BLOOD ADD-ON Final Result [facility] [address] [place] [address], [facility] NPRG [facility] [address] [place] [address] * HIV-1/-2 Ag and Ab Screen, Plasma (04/01/2024 11:16 AM TELETYPESETTER MONITOR) HIV Ag/Ab Screen, P Negative Negative 04/01/2024 4:49 PM TELETYPESETTER MONITOR [facility] Comment: Negative result does not rule out HIV infection. If exposure to HIV infection occurred <14 days ago, contact the laboratory to request addition of HIV-1/HIV-2 RNA detection, Plasma (HIP12). HIV-1 p24 Ag Screen, P Negative Negative 04/01/2024 4:49 PM TELETYPESETTER MONITOR [facility] Comment: Negative result does not rule out HIV infection. If exposure to HIV infection occurred <14 days ago, contact the laboratory to request addition of HIV-1/HIV-2 RNA detection, Plasma (HIP12). HIV-1 Ab Screen, P Negative Negative 04/01/2024 4:49 PM TELETYPESETTER MONITOR [facility] Comment: Negative result does not rule out HIV infection. If exposure to HIV infection occurred <14 days ago, contact the laboratory to request addition of HIV-1/HIV-2 RNA detection, Plasma (HIP12). HIV-2 Ab Screen, P Negative Negative 04/01/2024 4:49 PM TELETYPESETTER MONITOR [facility] Comment: Negative result does not rule out HIV infection. If exposure to HIV infection occurred <14 days ago, contact the laboratory to request addition of HIV-1/HIV-2 RNA detection, Plasma (HIP12). Blood (Blood, Venous) 04/01/2024 11:16 AM TELETYPESETTER MONITOR 04/01/2024 3:08 PM TELETYPESETTER MONITOR us Lisa Tracy D.O. LAB MICROBIOLOGY - BLOOD ORDER RENETTA Final Result [facility] [address] [place] [id number], [facility] in [place] [id number] * Syphilis Total Antibody with Reflex, S (MCHS/ARZ) (04/01/2024 11:16 AM TELETYPESETTER MONITOR) Syphilis Total Ab w/ Reflex Nonreactive Nonreactive 04/01/2024 4:10 PM TELETYPESETTER MONITOR [facility] Comment: No serologic evidence of infection with T. pallidum (syphilis). Repeat testing may be considered in patients with suspected acute or primary syphilis in 2-4 weeks. For additional information on interpretation of the syphilis reverse algorithm and results, see: [email or web address] Blood (Blood, Venous) 04/01/2024 11:16 AM TELETYPESETTER MONITOR 04/01/2024 3:08 PM TELETYPESETTER MONITOR us Lisa Tracy D.O. LAB BLOOD ADD-ON Final Result [facility] [address] [place] [address], [facility] [place] [address] [place] [id number] * Chlamydia / Gonorrhoeae Amplified RNA (12/24/2023 2:29 PM CDT) Source Swab, Vagina 12/24/2023 11:42 PM CDT MKTO Chlamydia trachomatis amplified RNA Negative Negative 12/24/2023 11:42 PM CDT MKTO Source Swab, Vagina 12/24/2023 11:42 PM CDT MKTO Neisseria gonorrhoeae amplified RNA Negative Negative 12/24/2023 11:42 PM CDT MKTO Swab (Vagina) 12/24/2023 2:2 9 PM CDT 12/24/2023 4:32 PM CDT us Libby Gates APRN.N.Kanu., M.S.N. LAB MICROBIOLOGY - GENERAL ORDERABLES Final Result [facility] [address] [place] [address], [facility] MKTO [address] [place] [address] * ThinPrep Screen HPV Reflex (05/21/2023 4:05 PM TELETYPESETTER MONITOR) 05/23/2023 10:34 AM TELETYPESETTER MONITOR [facility] Report electronically signed by Jagdeep Garland MD I verify that I have examined all relevant slides/materials for the specimen(s) and rendered or confirmed the diagnosis. 05/23/2023 10:34 AM TELETYPESETTER MONITOR [facility] Gross Description Received specimen in a ThinPrep vial. 05/23/2023 10:34 AM TELETYPESETTER MONITOR [facility] Pap Test Source Cervical/Endocervi robles 05/23/2023 10:34 AM TELETYPESETTER MONITOR [facility] Hormone Therapy/Contracep tives None/Not known 05/23/2023 10:34 AM TELETYPESETTER MONITOR [facility] Interpretation Cervical/Endocervi robles (ThinPrep): Satisfactory for Evaluation Negative for Intraepithelial Lesion or Malignancy 05/23/2023 10:34 AM TELETYPESETTER MONITOR [facility] Thin Prep Vial (Cervix/Endocerv ix) 05/21/2023 4:05 PM TELETYPESETTER MONITOR 05/22/2023 7:31 AM TELETYPESETTER MONITOR us Leland Gates APRNNJoselito, M.S.N. LAB PAP PATH DX ORDERABLES Final Result [facility] [address] [place] [address], [place] [facility] [address] [facility] [address] [place] [phone] from Last 3 Months or Most Recently Relevant to Health Maintenance [facility] [employer] Care Teams Fresh Foods Technician Relationship Specialty Start Date End Date Jose Martin Ramirez M.D. [address] [place] [phone] PCP - General 09/27/23
--- OUTSIDE RECORDS SUMMARY | 2024-04-04 23:42 | XMS_ITS | Encounter Summary ---
Author Organization [facility] Address [address] [place] [address] Care Team Providers Care Threading Machine Tender Name Role Phone Jose Martin Ramirez M.D. Primary Care Provider [phone] Reason for Referral * Outpatient (Routine) - Closed Specialty Diagnoses / Procedures Referred By Contac t Referred To Contact Diagnoses Bunion Left Bunion Right Procedures DX Foot Bilateral 3+ Views Lisa Tracy D.O. [address] [place] [address] Phone: tel: fax: [facility] Referral ID Status Reason Start Date Expiration Date Visits Re quested Visits Authorized [id number] Closed 04/01/2024 04/01/2025 1 1 EMIC PROGRAM SPECIALIST * Outpatient (Routine) - Authorized Specialty Diagnoses / Procedures Referred By Contac t Referred To Contact Orthopedic Surgery Diagnoses Bunion Left Bunion Right Lisa Tracy D.O. [address] [place] [address] Phone: tel: fax: [facility] Referral ID Status Reason Start Date Expiration Date V isits Requested Visits Authorized [id number] Authorized 04/01/2024 10/01/2025 1 1 Scheduling Instructions Ortho internal referral panel order, imaging before Consult visit EMIC PROGRAM SPECIALIST Reason for Visit * Reason Comments Establish Care Left foot pain from bunion, has had from childhood, pain been getting worse, hurts with each step * Appointment Request (Routine) - Closed Specialty Diagnoses / Procedures Referred By Safia abdullahi Referred To Contact Family Medicine Referral ID Status Reason Start Date Expiration Date Visits Re quested Visits Authorized [id number] Closed 03/19/2024 03/19/2025 1 1 Encounter Details Date Type Department Care Team (Latest Contact Info) Description 04/01/2024 10:30 AM ACADEMIC PROGRAM SPECIALIST Office Visit Department of Family Medicine in [place], [place] [address] [place] [address] Lisa Tracy D.O. [address] [place] [address] Screening Lipid (Primary Dx); Screening Test Laboratory; Human Immunodeficiency Virus Screening; Screening For Venereal Disease; Bunion Left; Bunion Right; Hypokalemia; Screening Examination Diabetes Mellitus Social History Tobacco Use Types Packs/Day Years Used Date Smoking Tobacco: Some Days Cigarettes Passive Smoke Exposure: Past Smokeless Tobacco: Never Comments:Vape Alcohol Use Standard Drinks/Week Comments Not Currently 0 (1 standard drink = 0.6 oz pure alcohol) Have alcohol a couple times a month [facility] Vigilentities Answer Date Recorded In the past 12 months has [facility] [employer], [employer], or water [employer] threatened to shut off services in your [...] often do you attend chur ch or temple services? Never 08/29/2022 Do you belong to any clubs o r organizations such as mu-ism groups, unions, fraternal or athletic groups, or [...] your living situation today? I have a [facility] place to live 09/10/2023 Education Answer Date Recorded What is the highest level of school you have completed or the highest degree you have received? 12th grade 08/29/2022 Comments Unknown Sex and Gender Information Value Date Recorded Sex Assigned at Female 07/26/2017 10:00 AM CDT Legal Sex Female 10:13 PM ACADEMIC PROGRAM SPECIALIST Gender Identity Female 07/26/2017 10:00 AM CDT Sexual Orientation Straight 07/26/2017 10 :00 AM CDT documented as of this encounter Last Filed Vital Signs Vital Sign Reading Time Taken Comments Blood Pressure 116/75 04/01/2024 10:27 AM ACADEMIC PROGRAM SPECIALIST Pulse 97 04/01/2024 10:27 AM ACADEMIC PROGRAM SPECIALIST Temperature 36.9 C (98.4 F) 04/01/2024 10:27 AM ACADEMIC PROGRAM SPECIALIST Respiratory Rate - - Oxygen Saturation 97% 04/01/2024 10:27 AM ACADEMIC PROGRAM SPECIALIST Inhaled Oxygen Concentration - - Weight 64.6 kg (142 lb 6.4 oz) 04/01/2024 10:27 AM ACADEMIC PROGRAM SPECIALIST Height 171 cm (5' 7.32) 04/01/2024 10:27 AM ACADEMIC PROGRAM SPECIALIST Body Mass Index 22.09 04/01/2024 10:27 AM ACADEMIC PROGRAM SPECIALIST documented in this encounter Plan of Treatment Upcoming Encounters Date Type Department Care Team (Late st Contact Info) Description 05/04/2024 9:45 AM ACADEMIC PROGRAM SPECIALIST Comprehensive Visit Department of Orthopedic Surgery in [place], [place] [address] [place] [phone] Marine Ruiz D.P.M. [address] [place] [phone] Discharge Disposition: Home or Self Care Scheduled Referrals Name Type Priority Associated Diagnoses Order Schedule Orthopedic Surgery - Podiatry foot surgical consult (clinic) Outpatient Referral Routine Bunion Left Bunion Right Expected: 04/01/2024 (Approximate), Expires: 07/02/2025 documented as of this encounter Procedures Procedure Name Priority Date/Time Associated Diagnosis Comments LIPID PANEL, S Routine 04/01/2024 11:17 AM ACADEMIC PROGRAM SPECIALIST Screening Lipid HCV AB SCRN W/REFLEX TO HCV PCR, S Routine 04/01/2024 11:17 AM ACADEMIC PROGRAM SPECIALIST Screening Test Laboratory HEMOGLOBIN A1C, B Routine 04/01/2024 11: 17 AM ACADEMIC PROGRAM SPECIALIST Screening Examination Diabetes Mellitus COMPREHENSIVE METABOLIC PANEL, S/P Routine 04/01/2024 11:17 AM ACADEMIC PROGRAM SPECIALIST Hypokalemia HIV-1/-2 AG AND AB SCREEN, PLASMA Routine 04/01/2024 11:16 AM ACADEMIC PROGRAM SPECIALIST Human Immunodeficiency Virus Screening SYPHILIS TOTAL AB W/ REFLEX S Routine 04/01/2024 11:16 AM ACADEMIC PROGRAM SPECIALIST Screening For Venereal Disease documented in this encounter Results * DX Foot Bilateral 3+ Views (04/01/2024 11:29 AM ACADEMIC PROGRAM SPECIALIST) Anatomical Region Laterality Modality Lower Extremity, Foot, Muscu loskeletal RST LOS, Musculoskeletal ARZ LOS, Muskuloskeletal FLA LOS Bilateral Digit al Radiography Impressions 04/01/2024 3:58 PM ACADEMIC PROGRAM SPECIALIST 1. No acute bilateral foot osseous abnormality. 2. 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 LAB BLOOD ADD-ON Final Result [facility] [address] [place] [address], [place] NPRG [facility] [address] [place] [address] * (ABNORMAL) Comprehensive Metabolic Panel (04/01/2024 11:17 AM ACADEMIC PROGRAM SPECIALIST) Potassium, P 4.0 3.6 - 5.2 mmol/L 04/01/2024 12:46 PM ACADEMIC PROGRAM SPECIALIST NPRG Sodium, P 142 135 - 145 mmol/L 04/01/2024 12:46 PM ACADEMIC PROGRAM SPECIALIST NPRG Chloride, P 106 98 - 107 mmol/L 04/01/2024 12:46 PM ACADEMIC PROGRAM SPECIALIST NPRG Bicarbonate, P 26 22 - 29 mmol/L 04/01/2024 12:46 PM ACADEMIC PROGRAM SPECIALIST NPRG Anion Gap, P 10 7 - 15 04/01/2024 12:46 PM ACADEMIC PROGRAM SPECIALIST NPRG BUN (Blood Urea Nitrogen), P 10 6 - 21 mg/dL 04/01/2024 12:46 PM ACADEMIC PROGRAM SPECIALIST NPRG Creatinine 0.69 0.59 - 1.04 mg/dL 04/01/2024 12:46 PM ACADEMIC PROGRAM SPECIALIST NPRG Estimated GFR (eGFR) >90 >=60 mL/min/BS A 04/01/2024 12:46 PM ACADEMIC PROGRAM SPECIALIST NPRG Comment: Estimated GFR calculated using the 2020 CKD_EPI creatinine equation. Calcium, Total, P 10.0 8.6 - 10.0 mg/dL 04/01/2024 12:46 PM ACADEMIC PROGRAM SPECIALIST NPRG Glucose, P 93 70 - 140 mg/dL 04/01/2024 12:46 PM ACADEMIC PROGRAM SPECIALIST NPRG Protein, Total, P 8.2(H) 6.3 - 7.9 g/dL 04/01/2024 12:46 PM ACADEMIC PROGRAM SPECIALIST NPRG Albumin, P 4.5 3.5 - 5.0 g/dL 04/01/2024 12:46 PM ACADEMIC PROGRAM SPECIALIST NPRG Aspartate Aminotransferase (AST), P 24 8 - 43 U/L 04/01/2024 12:46 PM ACADEMIC PROGRAM SPECIALIST NPRG Alkaline Phosphatase, P 84 35 - 104 U/L 04/01/2024 12:46 PM ACADEMIC PROGRAM SPECIALIST NPRG Alanine Aminotransferase (ALT), P 17 7 - 45 U/L 04/01/2024 12:46 PM ACADEMIC PROGRAM SPECIALIST NPRG Bilirubin, Total, P 0.3 0.0 - 1.2 mg/dL 04/01/2024 12:46 PM ACADEMIC PROGRAM SPECIALIST NPRG Blood (Blood, Venous) 04/01/2024 11:17 AM ACADEMIC PROGRAM SPECIALIST 04/01/2024 12:05 PM ACADEMIC PROGRAM SPECIALIST us Lisa Tracy D.O. LAB BLOOD ADD-ON Final Result [facility] [address] [place] [address], [facility] NPRG [facility] [address] [place] [address] * HCV Ab Scrn w/Reflex to HCV PCR, Serum (04/01/2024 11:17 AM ACADEMIC PROGRAM SPECIALIST) Pathologist [facility] HCV Ab Screen, S Negative Negative 04/01/2024 2:41 PM ACADEMIC PROGRAM SPECIALIST [facility] Blood (Blood, Venous) 04/01/2024 11:17 AM ACADEMIC PROGRAM SPECIALIST 04/01/2024 2:10 PM ACADEMIC PROGRAM SPECIALIST Narrative [facility] - 04/01/2024 2:41 PM ACADEMIC PROGRAM SPECIALIST Specimen Information: Specimen ID: [id number] Specimen Type: Blood Specimen Collection Start Date: 04/01/2024 11:17 AM Specimen Received Date: 04/01/2024 2:10 PM Specimen ID: [id number] Specimen Type: Blood Specimen Collection Start Date: 04/01/2024 11:17 AM Specimen Received Date: 04/01/2024 2:14 PM Lisa Tracy D.O. LAB MICROBIOLOGY - BLOOD ORDER RENETTA Final Result [facility] [address] [place] [address], [facility] in [place] [address] [place] [address] * (ABNORMAL) Lipid Panel (04/01/2024 11:17 AM ACADEMIC PROGRAM SPECIALIST) Pathologist [facility] Triglycerides 44 mg/dL 04/01/2024 12:46 PM ACADEMIC PROGRAM SPECIALIST NPRG Comment: ----REFERENCE VALUE---- Normal: <150 mg/dL Borderline High: 150-199 mg/dL High: 200-499 mg/dL Very High: > or =500 mg/dL Cholesterol, Total 148 mg/dL 2023 12:46 PM ACADEMIC PROGRAM SPECIALIST NPR[facility] Comment: ----REFERENCE VALUE---- Desirable: < 200 mg/dL Borderline High: 200 - 239 mg/dL High: > or = 240 mg/dL Cholesterol, LDL, Calculated 98 mg/dL 04/01/2024 12:46 PM ACADEMIC PROGRAM SPECIALIST NPRG Comment: ----REFERENCE VALUE---- Desirable: <100 mg/dL Above Desirable: 100-129 mg/dL Borderline High: 130-159 mg/dL High: 160-189 mg/dL Very High: >=190 mg/dL ----ADDITIONAL INFORMATION---- LDL cholesterol calculated using the Shea/NIH equation. Cholesterol, HDL 40(L) >=50 mg/dL 04/01/2024 12:46 PM ACADEMIC PROGRAM SPECIALIST NPRG Cholesterol, Non-HDL, Calculated 108 mg/dL 04/01/2024 12:46 PM ACADEMIC PROGRAM SPECIALIST NPRG Comment: ----REFERENCE VALUE---- Desirable: <130 mg/dL Above Desirable: 130-159 mg/dL Borderline High: 160-189 mg/dL High: 190-219 mg/dL Very High: > or =220 mg/dL Fasting (8 HR or more) Unknown 04/01/2024 11:17 AM ACADEMIC PROGRAM SPECIALIST NPR[facility] Blood (Blood, Venous) 04/01/2024 11:17 AM ACADEMIC PROGRAM SPECIALIST 04/01/2024 12:05 PM ACADEMIC PROGRAM SPECIALIST us Lisa Tracy D.O. LAB BLOOD ADD-ON Final Result [facility] [address] [place] [address], [facility] NPRG [facility] [address] [place] [address] * Syphilis Total Antibody with Reflex, S ([facility]) (04/01/2024 11:16 AM ACADEMIC PROGRAM SPECIALIST) Syphilis Total Ab w/ Reflex Nonreactive Nonreactive 04/01/2024 4:10 PM ACADEMIC PROGRAM SPECIALIST [facility] Comment: No serologic evidence of infection with T. pallidum (syphilis). Repeat testing may be considered in patients with suspected acute or primary syphilis in 2-4 weeks. For additional information on interpretation of the syphilis reverse algorithm and results, see: [email or web address] Blood (Blood, Venous) 04/01/2024 11:16 AM ACADEMIC PROGRAM SPECIALIST 04/01/2024 3:08 PM ACADEMIC PROGRAM SPECIALIST us Lisa Tracy D.O. LAB BLOOD ADD-ON Final Result Performing Organization Address City/[facility]/ZIP Co de Phone Number [facility] [address] [place] [address], [place] [facility] in [address] [address] * HIV-1/-2 Ag and Ab Screen, Plasma (04/01/2024 11:16 AM ACADEMIC PROGRAM SPECIALIST) Pathologist [facility] HIV Ag/Ab Screen, P Negative Negative 04/01/2024 4:49 PM ACADEMIC PROGRAM SPECIALIST [facility] Comment: Negative result does not rule out HIV infection. If exposure to HIV infection occurred <14 days ago, contact the laboratory to request addition of HIV-1/HIV-2 RNA detection, Plasma (HIP12). HIV-1 p24 Ag Screen, P Negative Negative 04/01/2024 4:49 PM ACADEMIC PROGRAM SPECIALIST [facility] Comment: Negative result does not rule out HIV infection. If exposure to HIV infection occurred <14 days ago, contact the laboratory to request addition of HIV-1/HIV-2 RNA detection, Plasma (HIP12). HIV-1 Ab Screen, P Negative Negative 04/01/2024 4:49 PM ACADEMIC PROGRAM SPECIALIST [facility] Comment: Negative result does not rule out HIV infection. If exposure to HIV infection occurred <14 days ago, contact the laboratory to request addition of HIV-1/HIV-2 RNA detection, Plasma (HIP12). HIV-2 Ab Screen, P Negative Negative 04/01/2024 4:49 PM ACADEMIC PROGRAM SPECIALIST [facility] Comment: Negative result does not rule out HIV infection. If exposure to HIV infection occurred <14 days ago, contact the laboratory to request addition of HIV-1/HIV-2 RNA detection, Plasma (HIP12). Blood (Blood, Venous) 04/01/2024 11:16 AM ACADEMIC PROGRAM SPECIALIST 04/01/2024 3:08 PM ACADEMIC PROGRAM SPECIALIST us Lisa Tracy D.O. LAB MICROBIOLOGY - BLOOD ORDER RENETTA Final Result Performing Organization Address City/[facility]/ZIP Co de Phone Number [facility] [address] [place] [address], [facility] in [address] [address] documented in this encounter Visit Diagnoses Diagnosis Screening Lipid- Primary Screening Test Laboratory Human Immunodeficiency Virus Screening Screening For Venereal Disease Bunion Left Bunion Right Hypokalemia Screening Examination Diabetes Mellitus Bunion Left Bunion Right documented in this encounter Additional Health Concerns Assessment Noted Time PHQ-9 Depression Total Score: 0 04/01/20 24 8:57 AM ACADEMIC PROGRAM SPECIALIST documented as of this encounter Care Teams Threading Machine Tender Relationship Specialty Start Date End Date Jose Martin Ramirez M.D. [address] [place] [phone] PCP - General 09/27/23 documented as of this encounter
--- OUTSIDE RECORDS SUMMARY | 2024-04-04 23:42 | XMS_ITS | Encounter Summary ---
Author Organization [facility] Address [address] [place] [address] Care Team Providers Care Trouble Tracer Name Role Phone Jose Martin Ramirez M.D. Primary Care Provider [phone] Reason for Visit * Reason Comments Med Refill Encounter Details Date Type Department Care Team (Late st Contact Info) Description 02/04/2024 Refill Department of Ophthalmology in [place], [place] [address] [place] [address] Adrienne Garza M.D. [address] [place] [phone] Med Refill Social History Tobacco Use Types Packs/Day Years Used Date Smoking Tobacco: Some Days Cigarettes Passive Smoke Exposure: Past Smokeless Tobacco: Never Comments:Vape Alcohol Use Standard Drinks/Week Comments Not Currently 0 (1 standard drink = 0.6 oz pure alcohol) Have alcohol a couple times a month [facility] Utilities Answer Date Recorded In the past 12 months has [employer], gas, oil, or water [facility] threatened to shut off services in your [...] any clubs o r organizations such as cheondoism groups, unions, fraternal or athletic groups, or [...] Answer Date Recorded PHQ-2 Score 4 05/16/2023 [facility] of Occupat ional Health - Occupational Stress [...] your living situation today? I have a [facility] place to live 09/10/2023 Education Answer Date Recorded What is the highest level of school you have completed or the highest degree you have received? 12th grade 08/29/2022 Comments No Sex and Gender Information Value Date Recorded Sex Assigned at Female 07/26/2017 10:00 AM CDT Legal Sex Female 10:13 PM APPLICATION SUPPORT Gender Identity Female 07/26/2017 10:00 AM CDT Sexual Orientation Straight 07/26/2017 10 :00 AM CDT documented as of this encounter Plan of Treatment Upcoming Encounters Date Type Department Care Team (Late st Contact Info) Description 05/04/2024 9:45 AM APPLICATION SUPPORT Comprehensive Visit Department of Orthopedic Surgery in [place], [place] [address] [place] [phone] Marine Ruiz D.P.M. [address] [place] [phone] Discharge Disposition: Home or Self Care documented as of this encounter Visit Diagnoses Not on filedocumented in this encounter Additional Health Concerns Assessment Noted Time PHQ-9 Depression Total Score: 8 05/16/19 24 6:00 PM APPLICATION SUPPORT documented as of this encounter Care Teams Trouble Tracer Relationship Specialty Start Date End Date Jose Martin Ramirez M.D. [address] [place] [phone] PCP - General 09/27/23 documented as of this encounter
--- OUTSIDE RECORDS SUMMARY | 2024-04-04 23:42 | XMS_ITS | Encounter Summary ---
Author Organization [facility] Address [address] [place] [address] Care Team Providers Care Excavation Laborer Name Role Phone Jose Martin Ramirez M.D. Primary Care Provider [phone] Reason for Referral * Outpatient (Routine) - Closed Specialty Diagnoses / Procedures Referred By Contac t Referred To Contact Diagnoses Pelvic And Perineal Pain Surveillance Intrauterine Device Screening For Venereal Disease Procedures US Pelvis Transvaginal and Transabdominal Amy Vernon APRN, C.N.P., M.S.N. [address] [place] [address] Phone: tel: fax: [facility] Region Referral ID Status Reason Start Date Expiration Date Visits Re quested Visits Authorized [id number] Closed 12/24/2023 12/23/2024 1 1 Reason for Visit * Outpatient (Routine) - Closed Specialty Diagnoses / Procedures Referred By Contac t Referred To Contact Diagnoses Pelvic And Perineal Pain Surveillance Intrauterine Device Screening For Venereal Disease Procedures US Pelvis Transvaginal and Transabdominal Amy Vernon APRN, C.N.P., M.S.N. [address] [place] [address] Phone: tel: fax: [facility] Region Referral ID Status Reason Start Date Expiration Date Visits Re quested Visits Authorized [id number] Closed 12/24/2023 12/23/2024 1 1 Encounter Details Date Type Department Care Team (Latest Contact Info) Description 12/26/2023 5:46 PM CDT - 12/26/2023 11:59 PM CDT Hospital Encounter Department of Radiology in [place], [place] [address] [place] [phone] Amy Vernon, NATHALY, C.N.P., M.S.N. [address] [place] [phone] Pelvic And Perineal Pain; Surveillance Intrauterine Device; Screening For Venereal Disease Discharge Disposition: Home or Self Care Social History Tobacco Use Types Packs/Day Years Used Date Smoking Tobacco: Some Days Cigarettes Passive Smoke Exposure: Past Smokeless Tobacco: Never Comments:Vape Alcohol Use Standard Drinks/Week Comments Not Currently 0 (1 standard drink = 0.6 oz pure alcohol) Have alcohol a couple times a month [facility] Utilities Answer Date Recorded In the past 12 months has [employer], gas, oil, or water [employer] threatened to shut off services in your [...] often do you attend chur ch or mormon services? Never 08/29/2022 Do you belong to any clubs o r organizations such as sikh groups, unions, fraternal or athletic groups, or [...] Answer Date Recorded PHQ-2 Score 4 05/16/2023 [facility] of Occupat ional Health - Occupational Stress [...] your living situation today? I have a [facility] place to live 09/10/2023 Education Answer Date Recorded What is the highest level of school you have completed or the highest degree you have received? 12th grade 08/29/2022 Comments No Sex and Gender Information Value Date Recorded Sex Assigned at Female 07/26/2017 10:00 AM CDT Legal Sex Female 10:13 PM BRAND ATTENDANT Gender Identity Female 07/26/2017 10:00 AM CDT [...] st Contact Info) Description 05/04/2024 9:45 AM BRAND ATTENDANT Comprehensive Visit Department of Orthopedic Surgery in [place], [place] [address] [place] [phone] Marine Ruiz D.P.M. [address] [place] [address] Discharge Disposition: Home or Self Care documented [...] Ovarian volume: 4 ml. Intraperitoneal Fluid: None. Procedure [...] noted in satisfactory position. us Amy Vernon APRN C.N.P., M.S.N. IMG US KAROLINE BONILLA Edited Result - Final documented in this encounter Visit Diagnoses Diagnosis Pelvic And Perineal Pain Surveillance Intrauterine Device Screening For Venereal Disease documented in this encounter Additional Health Concerns Assessment Noted Time PHQ-9 Depression Total Score: 8 05/16/19 24 6:00 PM BRAND ATTENDANT documented as of this encounter Care Teams Excavation Laborer Relationship Specialty Start Date End Date Jose Martin Ramirez M.D. [address] [place] [phone] PCP - General 09/27/23 documented as of this encounter
--- OUTSIDE RECORDS SUMMARY | 2024-04-04 23:42 | XMS_ITS ---
Author Organization [facility] Address [address] [place] [address] Care Team Providers Care Mid Level Clinician Name Role Phone Unavailable Unavailable Unavailable Surgery Details Not on file Complications Check Surgery Details section. Procedure Estimated Blood Loss Check Surgery Details section. Procedure Findings Check Surgery Details section. Procedure Specimens Taken Check Surgery Details section.
--- OUTSIDE RECORDS SUMMARY | 2024-04-04 23:42 | XMS_ITS | Encounter Summary ---
Author Organization [facility] Address [address] [place] [address] Care Team Providers Care Exhibit Builder Name Role Phone Jose Martin Ramirez M.D. Primary Care Provider [phone] Reason for Referral * Outpatient (Routine) - Authorized Specialty Diagnoses / Procedures Referred By Safia abdullahi Referred To Contact Ophthalmology Adrienne Garza M.D. [address] [place] [address] Phone: tel: fax: [facility] Referral ID Status Reason Start Date Expiration Date V isits Requested Visits Authorized [id number] Authorized 02/19/2024 08/20/2025 1 1 Reason for Visit * Reason Comments Follow-up * Outpatient (Routine) - Closed Specialty Diagnoses / Procedures Referred By Safia abdullahi Referred To Contact Ophthalmology Adrienne Garza M.D. [address] [place] [address] Phone: tel: fax: [facility] Referral ID Status Reason Start Date Expiration Date Visits Re quested Visits Authorized [id number] Closed 10/31/2023 05/01/2025 1 1 Encounter Details Date Type Department Care Team (Latest Contact Info) Description 02/19/2024 3:45 PM CDT Office Visit Department of Ophthalmology in [place], [place] [address] [place] [phone] Adrienne Garza M.D. 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 Never 08/29/2022 Do you belong to [...] Answer Date Recorded PHQ-2 Score 4 05/16/2023 [facility] - Occupational Stress Questionnaire Answer Date [...] AM CDT Legal Sex Female 10:13 PM CLE[employer] OUT DRILLER HELPER Gender Identity Female 07/26/2017 10:00 AM CDT [...] st Contact Info) Description 05/04/2024 9:45 AM CLE[employer] OUT DRILLER HELPER Comprehensive Visit Department of Orthopedic Surgery in [place], [place] [address] [place] [id number] Marine Ruiz D.PNidiaMNidia [address] [place] [address] Discharge Disposition: Home or Self Care Scheduled Referrals Name Type Priority Associated Diagnoses Order Schedule Ophthalmology office visit (clinic) Outpatient Referral Routine Expected: 05/06/2024 (Approximate), Expires: 05/21/2025 documented as of this encounter Visit Diagnoses Diagnosis Keratoconjunctivitis Sicca Not Specified As Sjogrens Bilateral- Primary documented in this encounter Additional Health Concerns Assessment Noted Time PHQ-9 Depression Total Score: 8 05/16/19 24 6:00 PM [employer] D[employer]LL[employer] HEL[employer] documented as of this encounter Care Teams Exhibit Builder Relationship Specialty Start Date End Date Jose Martin Ramirez M.D. [address] [place] [phone] PCP - General 09/27/23 documented as of this encounter
== END 2024-04-04 23:49 | disposition home or self-care (01) ==
PROVIDERS: Emergency Provider Emergency Medicine Emergency Medical Services
DX: R55 Syncope and collapse (principal)
CPT/HCPCS: 80306; 81001; 99283; 99284; A0425; A0427

== ENCOUNTER 2024-11-05 02:28 | Outpatient (CLI) | payer OTHER, SELFPAY | END 2024-11-05 02:29 | disposition home or self-care (01) | LOC: AMB 11-09 09:48 | PROVIDERS: Visit Provider Family Medicine | DX: F10.129 Alcohol abuse with intoxication, unspecified (principal); R45.851 Suicidal ideations | CPT/HCPCS: A0425; A0433 ==